=== PATIENT | female | born 1970 | race Caucasian/White ===

== ENCOUNTER 2017-06-18 08:15 | Emergency (ER) | payer MEDICAID ==
[~2017-06-18] VITALS: Ht 154.9 cm; Wt 87.1 kg
[~2017-06-18 08:15] MED LIST: ALBU8.5H8 IH; CYCL-1 PO; MECL-111 PO
[2017-06-18] MEDS ORDERED: AZIT250T PO (09:16)
[2017-06-18 09:53] VITALS: BP 99/86
== END 2017-06-18 09:54 | disposition home or self-care (01) ==
LOC: ER 08:15
DX: J20.9 Acute bronchitis, unspecified (principal); E11.42 Type 2 diabetes mellitus with diabetic polyneuropathy; G89.29 Other chronic pain; Z79.899 Other long term (current) drug therapy
CPT/HCPCS: 71046; 99284

== ENCOUNTER 2017-06-25 08:14 | Emergency (ER) | payer MEDICAID ==
[~2017-06-25] VITALS: Ht 154.9 cm; Wt 86.6 kg
[~2017-06-25 08:14] MED LIST changes: +AZIT250T PO
[2017-06-25] MEDS ORDERED: METH4TAB3 PO (08:25)
[2017-06-25] MEDS ORDERED: IBUP-1984 PO (08:25)
[2017-06-25 08:39] VITALS: BP 140/88
== END 2017-06-25 08:42 | disposition home or self-care (01) ==
LOC: ER 08:15
DX: R59.0 Localized enlarged lymph nodes (principal); E11.9 Type 2 diabetes mellitus without complications; G89.29 Other chronic pain; G62.9 Polyneuropathy, unspecified
CPT/HCPCS: 99283

== ENCOUNTER 2018-11-20 22:39 | Emergency (ER) | payer MEDICAID ==
[~2018-11-20] VITALS: Ht 154.9 cm; Wt 93.2 kg
[~2018-11-20 22:39] MED LIST changes: +METH4TAB3 PO
--- NOTE | 2018-11-20 23:45 | NUR ---
DISCUSSED PT'S C/O OF NAUSEA W/ DR BATES; NEW ORDER RECEIVED FOR ZOFRAN.
[2018-11-20] MEDS ORDERED: ondansetron 4mg rapidly disintigrating tab PO ONE (23:50)
--- NOTE | 2018-11-21 00:57 | NUR ---
PT RESTING IN BED DENIES ANY CONCERN ,NO DISTRESS NOTED VITALS STABLE.WILL CONT TO MONITOR.PT WAITING TO BE SEEN BY .
[2018-11-21 02:05] LABS: BASOPHILS % (AUTO) 0.4 % (0-1); EOSINOPHILS # (AUTO) 0.1 X10'3 (0-0.9); HEMATOCRIT 39.3 % (35.0-45.0); HEMOGLOBIN 13.5 g/dl (12.0-16.0); LYMPHOCYTES # (AUTO) 3.7 X10'3 (1.1-4.8); MEAN CORPUSCULAR HEMOGLOBIN 28.8 PG (27.0-31.0); MEAN CORPUSCULAR HGB CONC 34.3 g/dL (33.0-36.5); MEAN PLATELET VOLUME 9.2 FL (7.4-10.4); NEUTROPHILS # (AUTO) 5.9 X10'3 (1.8-7.7); NEUTROPHILS % (AUTO) 54.6 % (42-75); PLATELET COUNT 305 X10'3 (140-440); RED BLOOD COUNT 4.68 X10'6 (4.20-5.60); RED CELL DISTRIBUTION WIDTH 13.7 % (11.5-14.5); WHITE BLOOD COUNT 10.7 X10'3 (4.5-11.0)
[2018-11-21 02:09] LABS: ALANINE AMINOTRANSFERASE 18 U/L (12-78); ALBUMIN/GLOBULIN RATIO 0.8 (1.1-1.5); ALKALINE PHOSPHATASE 64 IU/L (46-116); ANION GAP 11 (8-16); ASPARTATE AMINO TRANSFERASE 8 U/L (10-37); BILIRUBIN,TOTAL 0.2 MG/DL (0.1-1.0); BLOOD UREA NITROGEN 16 MG/DL (7-18); BUN/CREATININE RATIO 21.3 (6.6-38.0); CALCIUM 8.9 MG/DL (8.5-10.1); CHLORIDE 106 MMOL/L (99-107); CREATININE 0.75 MG/DL (0.40-0.90); GLUCOSE 89 MG/DL (70-104); SODIUM 141 MMOL/L (135-145); TOTAL CARBON DIOXIDE 24.1 MMOL/L (24-32); TOTAL PROTEIN 6.7 G/DL (6.4-8.2); eGFR 83 ML/MIN
[2018-11-21 02:16] LABS: CLARITY,URINE CLEAR (Clear); COLOR,URINE YELLOW (Yellow); GLUCOSE, URINE 500 mg/dl (Neg); KETONES,URINE NEGATIVE (Neg); LEUKOCYTE ESTERASE ,URINE NEGATIVE (Neg); NITRITES, URINE NEGATIVE (Neg); OCCULT BLOOD,URINE NEGATIVE (Neg); PROTEIN,URINE NEGATIVE (Neg); UROBILINOGEN,URINE 0.2 E.U/dL (0.2-1.0)
[2018-11-21 02:17] LABS: UA COLLECTION TYPE VOIDED
--- NOTE | 2018-11-21 02:31 | NUR ---
Discussed critical lab value with delores pro; new order received for PO potassium 20mEq.
[2018-11-21] MEDS ORDERED: potassium Cl 20 mEq SR tablet PO ONE (02:35)
[2018-11-21] MEDS ORDERED: potassium chloride 10mEq CAPSULE.SA PO ONE (02:35)
[2018-11-21 03:02] VITALS: BP 126/72
[2018-11-21] MEDS ORDERED: ONDA4TAB6 PO (03:13)
== END 2018-11-21 03:26 | disposition home or self-care (01) ==
LOC: ER 22:39
DX: E11.65 Type 2 diabetes mellitus with hyperglycemia (principal); E87.6 Hypokalemia; K29.00 Acute gastritis without bleeding; E11.42 Type 2 diabetes mellitus with diabetic polyneuropathy; G89.29 Other chronic pain; Z79.899 Other long term (current) drug therapy
CPT/HCPCS: 36415; 80053; 81003; 82948; 84484; 85025; 99284; J2405; 99283

== ENCOUNTER 2018-12-15 09:51 | Emergency (ER) | payer MEDICAID ==
[~2018-12-15] VITALS: Ht 154.9 cm; Wt 95.5 kg
[~2018-12-15 09:51] MED LIST changes: +ONDA4TAB6 PO
[2018-12-15 10:14] VITALS: BP 124/75
[2018-12-15] MEDS ORDERED: TETanus/Pertussis (Acell)/Diphther VAC/PF (Tdap-Adult) 0.5ml syringe IM ONE (11:05)
[2018-12-15] MEDS ORDERED: DOXY100C43 PO (11:22)
== END 2018-12-15 11:30 | disposition home or self-care (01) ==
LOC: ER 09:51
DX: L01.02 Bockhart's impetigo (principal); M79.661 Pain in right lower leg; E11.42 Type 2 diabetes mellitus with diabetic polyneuropathy; G89.29 Other chronic pain; Z79.899 Other long term (current) drug therapy
CPT/HCPCS: 90471; 99283

== ENCOUNTER 2022-09-29 13:33 | Inpatient (IN) | payer MEDICAID ==
[~2022-09-29] VITALS: Ht 154.9 cm; Wt 97.7 kg
[~2022-09-29 13:33] MED LIST changes: +ALBU8.5H17 IH; -ALBU8.5H8 IH; -MECL-111 PO; +MECL-159 PO
[2022-09-29 15:33] LABS: BASOPHILS # (AUTO) 0.1 X10'3 (0-0.2); BASOPHILS % (AUTO) 0.7 % (0-1); EOSINOPHILS % (AUTO) 0 % (0-6); HEMATOCRIT 38.1 % (35.0-45.0); LYMPHOCYTES # (AUTO) 0.5 X10'3 (1.1-4.8); LYMPHOCYTES % (AUTO) 2.6 % (21-51); MEAN CORPUSCULAR HEMOGLOBIN 25.1 PG (27.0-31.0); MEAN CORPUSCULAR HGB CONC 31.5 g/dL (33.0-36.5); MEAN CORPUSCULAR VOLUME 79.6 FL (78-98); MEAN PLATELET VOLUME 8.7 FL (7.4-10.4); MONOCYTES # (AUTO) 0.9 X10'3 (0-0.9); MONOCYTES % (AUTO) 4.2 % (2-12); NEUTROPHILS # (AUTO) 18.8 X10'3 (1.8-7.7); NEUTROPHILS % (AUTO) 92.5 % (42-75); PLATELET COUNT 463 X10'3 (140-440); RED BLOOD COUNT 4.79 X10'6 (4.20-5.60); RED CELL DISTRIBUTION WIDTH 17.2 % (11.5-14.5); WHITE BLOOD COUNT 20.4 X10'3 (4.5-11.0)
[2022-09-29] MEDS ORDERED: methylPREDNISolone sod succ 125mg/2ml vial IV ONE (15:35)
[2022-09-29] MEDS ORDERED: normal saline 1000ML IV soln IVB ONE (15:35)
[2022-09-29] MEDS ORDERED: albuterol 2.5 MG/3 ML nebule NEB ONE (15:35)
[2022-09-29] MEDS ORDERED: albuterol 2.5 MG/3 ML nebule CONTNEB PRN ×2 (15:35→19:15)
[2022-09-29 15:49] LABS: ALANINE AMINOTRANSFERASE 14 U/L (12-78); ALBUMIN 3.1 G/DL (3.4-5.0); ALBUMIN/GLOBULIN RATIO 0.7 (1.1-1.5); ALKALINE PHOSPHATASE 38 IU/L (46-116); ANION GAP 8 (8-16); ASPARTATE AMINO TRANSFERASE 18 U/L (10-37); BILIRUBIN,TOTAL 0.8 MG/DL (0.1-1.0); BLOOD UREA NITROGEN 18 MG/DL (7-18); BUN/CREATININE RATIO 18.2 (10.0-20.0); CALCIUM 8.7 MG/DL (8.5-10.1); CHLORIDE 101 MMOL/L (99-107); CREATININE 0.99 MG/DL (0.40-0.90); GLUCOSE 150 MG/DL (70-104); POTASSIUM 3.8 MMOL/L (3.5-5.1); SODIUM 136 MMOL/L (135-145); TOTAL CARBON DIOXIDE 26.6 MMOL/L (24-32); TOTAL PROTEIN 7.4 G/DL (6.4-8.2); eGFR 59 ML/MIN
[2022-09-29 16:27] LABS: D-DIMER 0.66 MG/L FEU (0-0.50)
[2022-09-29] MEDS ORDERED: normal saline 1000ML IV soln IV ONE (18:10)
[2022-09-29] MEDS ORDERED: vancomycin/NS 1 GM ADD-VANTAGE 250 ML IV ONE (18:10)
[2022-09-29] MEDS ORDERED: piperacillin/tazo 3.375gm/50ml 50 ML IV ONE (18:10)
[2022-09-29] MEDS ORDERED: iohexol 350MG/ML 100ml bottle IV ONE (18:16)
[2022-09-29] MEDS ORDERED: acetaminophen 650mg rectal suppository RC PRN (19:55)
[2022-09-29] MEDS ORDERED: potassium Cl 20 mEq SR tablet PO PRN ×2 (19:55)
[2022-09-29] MEDS ORDERED: heparin 10,000 units/1 ML INJ IV ONE (19:55)
[2022-09-29] MEDS ORDERED: mag hydrox/Alum hydrox/simeth 30ml oral suspension PO PRN (19:55)
[2022-09-29] MEDS ORDERED: acetaminophen 325mg tablet PO PRN ×2 (19:55)
[2022-09-29] MEDS ORDERED: diphenhydrAMINE 25mg capsule PO PRN (19:55)
[2022-09-29] MEDS ORDERED: magnesium hydroxide 30ml (MOM) UD suspension PO PRN (19:55)
[2022-09-29] MEDS ORDERED: bisacodyl 10mg suppository rectal RC PRN (19:55)
[2022-09-29] MEDS ORDERED: PERFLUTREN PROTEIN-A MICROSPHR (Optison) 0.22 MG/ML 3ML VIAL IV ONE (19:55)
[2022-09-29] MEDS ORDERED: magnesium 2GM in 50ml NS 50 ML IV PRN (19:55)
[2022-09-29] MEDS ORDERED: magnesium 4gm in 100ml NS 100 ML IV PRN (19:55)
[2022-09-29] MEDS ORDERED: magnesium Cl slow-release 64mg tablet PO PRN (19:55)
[2022-09-29] MEDS ORDERED: ondansetron/PF 4mg/2ml inj IV PRN (19:55)
[2022-09-29] MEDS ORDERED: potassium Cl 40MEQ/1/2NS 520ml 520 ML IV PRN (19:55)
[2022-09-29] MEDS ORDERED: morphine 2 MG/ML inj. syringe IV PRN ×2 (19:55)
[2022-09-29] MEDS ORDERED: HYDROcodone/acetaminophen 10/325mg tab PO PRN (19:55)
[2022-09-29] MEDS: docusate sod 100mg capsule PO SCH (20:00)
[2022-09-29] MEDS: K and/or MAG REPLACEMENT MC SCH (20:00)
[2022-09-29] MEDS ORDERED: ipratropium/albuterol 3ml nebule NEB PRN (20:10)
[2022-09-29] MEDS: azithromycin/NS 500mg/250ml 250 ML IV SCH (20:10)
[2022-09-29 20:27] LABS: BASOPHILS % (AUTO) 0.1 % (0-1); EOSINOPHILS % (AUTO) 0 % (0-6); HEMOGLOBIN 11.5 g/dl (12.0-16.0); LYMPHOCYTES # (AUTO) 0.3 X10'3 (1.1-4.8); LYMPHOCYTES % (AUTO) 1.5 % (21-51); MEAN CORPUSCULAR HEMOGLOBIN 25.5 PG (27.0-31.0); MEAN CORPUSCULAR HGB CONC 31.8 g/dL (33.0-36.5); MEAN CORPUSCULAR VOLUME 80.2 FL (78-98); MEAN PLATELET VOLUME 8.7 FL (7.4-10.4); MONOCYTES # (AUTO) 0.4 X10'3 (0-0.9); MONOCYTES % (AUTO) 1.9 % (2-12); NEUTROPHILS # (AUTO) 21.3 X10'3 (1.8-7.7); NEUTROPHILS % (AUTO) 96.5 % (42-75); PLATELET COUNT 432 X10'3 (140-440); RED CELL DISTRIBUTION WIDTH 16.4 % (11.5-14.5); WHITE BLOOD COUNT 22.1 X10'3 (4.5-11.0)
[2022-09-29 20:33] LABS: APTT 30 SECONDS (22-32)
[2022-09-29 20:39] LABS: ETHANOL < 0.010 GM/DL (0.0-0.010)
[2022-09-29 20:42] LABS: HEMOGLOBIN A1C 8.2 % (4.5-6.2)
[2022-09-29] MEDS: heparin 25,000 UNIT/250ml bag 250 ML IV PRN (21:22)
[2022-09-29 21:53] LABS: URINE HCG NEGATIVE (NEG)
[2022-09-29 21:56] LABS: CLARITY,URINE CLEAR (Clear); COLOR,URINE YELLOW (Yellow); GLUCOSE, URINE >=1000 mg/dl (Neg); KETONES,URINE NEGATIVE (Neg); LEUKOCYTE ESTERASE ,URINE NEGATIVE (Neg); NITRITES, URINE NEGATIVE (Neg); OCCULT BLOOD,URINE LARGE (Neg); PH,URINE 5.5 (4.8-8.0); PROTEIN,URINE TRACE mg/dl (Neg); UROBILINOGEN,URINE 0.2 E.U/dL (0.2-1.0)
[2022-09-29 22:01] LABS: UA COLLECTION TYPE CLN CATCH MIDSTREAM
[2022-09-29 22:04] LABS: BACTERIA,URINE FEW /HPF (Neg); MUCUS STRANDS NONE SEEN /LPF (Neg); RBC,URINE 0-2 /HPF (0-2); SQUAMOUS EPITHELIAL CELL,UR FEW /LPF (FEW); WBC,URINE 0-4 /HPF (0-4)
[2022-09-29 22:08] LABS: URINE AMPHETAMINE SCREEN NEGATIVE (Neg); URINE BARBITUATE SCREEN NEGATIVE (Neg); URINE BENZODIAZEPINES SCREEN NEGATIVE (Neg); URINE CANNABINOID SCREEN NEGATIVE (Neg); URINE COCAINE SCREEN NEGATIVE (Neg); URINE METHADONE SCREEN NEGATIVE (Neg); URINE OPIATE SCREEN NEGATIVE (Neg); URINE PHENCYCLIDINE SCREEN NEGATIVE (Neg)
--- NOTE | 2022-09-29 22:16 | NUR ---
optison not administered in ED
[2022-09-29] MEDS ORDERED: glucagon, human recombinant 1mg kit SUBCUT PRN (22:20)
[2022-09-29] MEDS ORDERED: dextrose 50%-water 50ml dispensing syringe IV PRN ×2 (22:20)
[2022-09-29] MEDS ORDERED: DEXTROSE 15 GM of carb/4 tabs (each vial/BOTTLE has 4 tablets) PO PRN ×2 (22:20)
[2022-09-29] MEDS ORDERED: MESSAGE TO PHARMACY PO ONE (22:20)
--- NOTE | 2022-09-29 22:28 | NUR ---
PAGER ID: [phone] MESSAGE: Marnie Last admitted patient in ER room 1. Pt is DM Type 2. I ordered the protocol for hyperglycemia. Pt BG 405, orders? Varsha YAÑEZ
--- NOTE | 2022-09-29 22:30 | NUR ---
Orders from Dr. Phipps to follow night protocol insulin administration
[2022-09-29] MEDS: ipratropium/albuterol 3ml nebule NEB SCH (22:47)
--- NOTE | 2022-09-29 23:56 | NUR ---
Patient arrived via [facility] and Varsha YAÑEZ. Was able to transfer herself from the gurney to the bed. On 3LNC. In no apparent distress. Will admit and assess.
[2022-09-30] VITALS (7 sets, daily range): BP systolic 104–125; BP diastolic 66–80
[2022-09-30] MEDS: insulin Lispro (HumaLOG) vial - multi-dose SQ SCH ×5 (00:17→22:17)
[2022-09-30] MEDS: insulin glargine (Lantus) pen - multi-dose SQ SCH ×2 (00:21→22:19)
[2022-09-30] MEDS ORDERED: LISI10TA27 PO (00:38)
[2022-09-30] MEDS ORDERED: SEMA1PEN3 SQ (00:38)
[2022-09-30] MEDS ORDERED: ATOR20TA66 PO (00:38)
[2022-09-30] MEDS ORDERED: SERT-433 PO (00:38)
[2022-09-30] MEDS ORDERED: SERT-434 PO (00:38)
[2022-09-30] MEDS ORDERED: INSU100I31 SQ (00:38)
[2022-09-30] MEDS ORDERED: BENZ200C53 PO (00:38)
[2022-09-30] MEDS ORDERED: GABAPENTIN PO (00:38)
[2022-09-30] MEDS ORDERED: FENO145T25 PO (00:38)
[2022-09-30] MEDS: piperacillin/tazo 3.375gm/50ml 50 ML IV SCH ×4 (00:46→23:32)
[2022-09-30] MEDS: normal saline 1000ml 1,000 ML IV SCH ×3 (00:46→16:35)
[2022-09-30] MEDS: methylPREDNISolone sod succ 125mg/2ml vial IV SCH ×4 (01:19→20:58)
[2022-09-30] MEDS: ipratropium/albuterol 3ml nebule NEB SCH ×6 (03:07→23:21)
[2022-09-30 03:30] LABS: APTT 35 SECONDS (22-32)
[2022-09-30 03:34] LABS: ALANINE AMINOTRANSFERASE 15 U/L (12-78); ALBUMIN 2.8 G/DL (3.4-5.0); ALBUMIN/GLOBULIN RATIO 0.7 (1.1-1.5); ALKALINE PHOSPHATASE 34 IU/L (46-116); ANION GAP 11 (8-16); ASPARTATE AMINO TRANSFERASE 24 U/L (10-37); BILIRUBIN,TOTAL 0.7 MG/DL (0.1-1.0); BLOOD UREA NITROGEN 20 MG/DL (7-18); BUN/CREATININE RATIO 17.7 (10.0-20.0); CALCIUM 8.5 MG/DL (8.5-10.1); CHLORIDE 102 MMOL/L (99-107); CHOLESTEROL 92 MG/DL (0-200); CREATININE 1.13 MG/DL (0.40-0.90); HDL CHOLESTEROL 46 MG/DL (35-60); LDL CHOLESTEROL 38 MG/DL (50-100); MAGNESIUM 1.5 MG/DL (1.5-2.4); PHOSPHORUS 1.8 MG/DL (2.3-4.5); POTASSIUM 3.6 MMOL/L (3.5-5.1); SODIUM 134 MMOL/L (135-145); TOTAL CARBON DIOXIDE 21.3 MMOL/L (24-32); TOTAL PROTEIN 6.9 G/DL (6.4-8.2); TRIGLYCERIDES 65 MG/DL (20-135); eGFR 51 ML/MIN
[2022-09-30] MEDS: heparin 10,000 units/1 ML INJ IV PRN ×3 (03:38→19:34)
[2022-09-30 03:42] LABS: GLUCOSE 474 MG/DL (70-104)
[2022-09-30] MEDS ORDERED: INSU100I8 SQ (03:56)
[2022-09-30] MEDS ORDERED: METF-436 PO (03:59)
[2022-09-30 05:57] LABS: BASOPHILS % (AUTO) 0.1 % (0-1); EOSINOPHILS % (AUTO) 0 % (0-6); HEMATOCRIT 34.6 % (35.0-45.0); HEMOGLOBIN 10.7 g/dl (12.0-16.0); LYMPHOCYTES # (AUTO) 0.5 X10'3 (1.1-4.8); LYMPHOCYTES % (AUTO) 2.5 % (21-51); MEAN CORPUSCULAR HGB CONC 31.1 g/dL (33.0-36.5); MEAN CORPUSCULAR VOLUME 80.3 FL (78-98); MEAN PLATELET VOLUME 9.6 FL (7.4-10.4); MONOCYTES # (AUTO) 0.3 X10'3 (0-0.9); MONOCYTES % (AUTO) 1.7 % (2-12); NEUTROPHILS % (AUTO) 95.7 % (42-75); PLATELET COUNT 389 X10'3 (140-440); RED CELL DISTRIBUTION WIDTH 16.9 % (11.5-14.5); WHITE BLOOD COUNT 19.9 X10'3 (4.5-11.0)
--- NOTE | 2022-09-30 06:19 | NUR ---
Reported off to Annmarie YAÑEZ. Patient is awake and alert on 2LNC. Watching television in no apparent distress. Call light and items of frequent use within reach.
[2022-09-30] MEDS: azithromycin/NS 500mg/250ml 250 ML IV SCH (10:22)
[2022-09-30] MEDS: docusate sod 100mg capsule PO SCH ×2 (10:24→20:00)
[2022-09-30] MEDS ORDERED: GABA300C PO (11:27)
--- NOTE | 2022-09-30 11:27 | NUR ---
pt. refused 1100 SVN. Stated that she feels fine right now. no SOB observed
[2022-09-30] MEDS: K and/or MAG REPLACEMENT MC SCH ×2 (12:22→19:45)
--- NOTE | 2022-09-30 15:37 | NUR ---
DM/Malnutrition Consults: Pt admit DX COPD exacerbation, sepsis secondary to R lower lobe PNA, PNA possibly secondary to aspiration from vomiting, leukocytosis, dehydration, and DM neuropathy per EMR. Pt reports 2-13 pounds wt loss w/ decreased intake [employer] EXEC[employer]IVE per RN Malnutrition Screen. PO pending initial heart healthy diet w/ normal strength, no edema/wounds, and current standing scaled wt appropriate w/ no prior recent wt hx in EMR. At this time pt lacks minimum two malnutrition criteria; will monitor for further malnutrition criteria this admit. Pt hx DM A1C 8.2% no home DM meds listed in EMR; Glu initially 405mg/dl on admit now up to 457mg/dl started on glycemic protocol though continues on solumedrol per EMR. Pt would benefit from DM ed this admit prior to discharge. LBM 6/3 receiving routine colace. Will monitor for initial PO trends and nutrition intervention needs this admit. Rec: 1. continue heart healthy diet; monitor need for carb restriction pending initial PO trends. Consider [employer] BSS if concerns for swallow safety 2. monitor initial PO trends for ONS needs 3. routine bowel care 4. weekly wt 5. DM ed prior to discharge; A1C 8.2% Addendum: 09/30/22 at [address] Amended: Links added.
[2022-09-30] MEDS: heparin 25,000 UNIT/250ml bag 250 ML IV PRN (17:20)
--- NOTE | 2022-09-30 18:38 | NUR ---
Problems reprioritized. Patient report given, questions answered & plan of care reviewed with PARI WEST.
--- NOTE | 2022-09-30 18:40 | NUR ---
Problems reprioritized. Patient report given, questions answered & plan of care reviewed with Ronda YAÑEZ.
[2022-10-01 01:43] LABS: BASOPHILS % (AUTO) 0 % (0-1); EOSINOPHILS % (AUTO) 0.1 % (0-6); HEMATOCRIT 32.9 % (35.0-45.0); HEMOGLOBIN 10.3 g/dl (12.0-16.0); LYMPHOCYTES # (AUTO) 0.3 X10'3 (1.1-4.8); LYMPHOCYTES % (AUTO) 1.4 % (21-51); MEAN CORPUSCULAR HEMOGLOBIN 25.2 PG (27.0-31.0); MEAN CORPUSCULAR HGB CONC 31.4 g/dL (33.0-36.5); MEAN CORPUSCULAR VOLUME 80.3 FL (78-98); MONOCYTES # (AUTO) 0.6 X10'3 (0-0.9); MONOCYTES % (AUTO) 2.8 % (2-12); NEUTROPHILS # (AUTO) 20.5 X10'3 (1.8-7.7); NEUTROPHILS % (AUTO) 95.7 % (42-75); PLATELET COUNT 349 X10'3 (140-440); RED CELL DISTRIBUTION WIDTH 17.1 % (11.5-14.5); WHITE BLOOD COUNT 21.4 X10'3 (4.5-11.0)
[2022-10-01] MEDS: normal saline 1000ml 1,000 ML IV SCH ×3 (02:44→21:43)
[2022-10-01] MEDS: methylPREDNISolone sod succ 125mg/2ml vial IV SCH ×4 (02:54→19:35)
[2022-10-01 03:07] LABS: ALANINE AMINOTRANSFERASE 13 U/L (12-78); ALBUMIN 2.8 G/DL (3.4-5.0); ALBUMIN/GLOBULIN RATIO 0.6 (1.1-1.5); ALKALINE PHOSPHATASE 40 IU/L (46-116); ANION GAP 10 (8-16); ASPARTATE AMINO TRANSFERASE 18 U/L (10-37); BILIRUBIN,TOTAL 0.5 MG/DL (0.1-1.0); BLOOD UREA NITROGEN 28 MG/DL (7-18); BUN/CREATININE RATIO 25.9 (10.0-20.0); CALCIUM 8.4 MG/DL (8.5-10.1); CHLORIDE 102 MMOL/L (99-107); CREATININE 1.08 MG/DL (0.40-0.90); GLUCOSE 252 MG/DL (70-104); MAGNESIUM 1.9 MG/DL (1.5-2.4); PHOSPHORUS 2.1 MG/DL (2.3-4.5); POTASSIUM 3.7 MMOL/L (3.5-5.1); SODIUM 137 MMOL/L (135-145); TOTAL CARBON DIOXIDE 24.8 MMOL/L (24-32); TOTAL PROTEIN 7.2 G/DL (6.4-8.2); eGFR 53 ML/MIN
[2022-10-01] MEDS: ipratropium/albuterol 3ml nebule NEB SCH ×6 (03:18→23:39)
--- NOTE | 2022-10-01 03:18 | NUR ---
Heparin drip has since been dc'd earlier. So not bolusing per protocol for low 29ptt.
--- NOTE | 2022-10-01 06:50 | NUR ---
Problems reprioritized. Patient report given, questions answered & plan of care reviewed with Ronda YAÑEZ.
--- NOTE | 2022-10-01 06:53 | NUR ---
Patient in room PCU 6041X. I have received report from PARI WEST and had the opportunity to ask questions and assume patient care.
[2022-10-01 07:00] VITALS: BP 130/78
[2022-10-01] MEDS: gabapentin 300mg capsule PO SCH ×2 (07:40→19:36)
[2022-10-01] MEDS: benzonatate 100mg capsule PO SCH ×3 (07:41→21:36)
[2022-10-01] MEDS: lisinopril 10 MG tablet PO SCH (07:41)
[2022-10-01] MEDS: atorvastatin 20mg tablet PO SCH (07:41)
[2022-10-01] MEDS: sertraline 50mg tablet PO SCH (07:42)
[2022-10-01] MEDS: fenofibrate 145mg tablet PO SCH (07:42)
[2022-10-01] MEDS: heparin, porcine 5000 units/ml vial SQ SCH ×3 (07:43→16:00)
[2022-10-01] MEDS: docusate sod 100mg capsule PO SCH ×2 (07:44→19:36)
[2022-10-01] MEDS: azithromycin/NS 500mg/250ml 250 ML IV SCH (07:44)
[2022-10-01] MEDS ORDERED: non-formulary drug (Sertraline HCl 1 TAB) PO SCH (08:00)
[2022-10-01] MEDS: insulin Lispro (HumaLOG) vial - multi-dose SQ SCH ×4 (09:19→21:32)
[2022-10-01] MEDS: piperacillin/tazo 3.375gm/50ml 50 ML IV SCH ×2 (09:20→15:59)
[2022-10-01] MEDS: K and/or MAG REPLACEMENT MC SCH ×2 (09:26→19:36)
[2022-10-01 12:00] VITALS: BP 130/78
[2022-10-01 16:00] VITALS: BP 144/87
[2022-10-01 18:00] VITALS: BP 139/89
--- NOTE | 2022-10-01 18:42 | NUR ---
Problems reprioritized. Patient report given, questions answered & plan of care reviewed with PARI MUÑOZ.
--- NOTE | 2022-10-01 21:19 | NUR ---
Problems reprioritized. Patient report given, questions answered & plan of care reviewed with JUSTIN AND PARI DUNN.
[2022-10-01] MEDS: HYDROcodone/acetaminophen 5mg/325mg tablet PO PRN (21:28)
[2022-10-01] MEDS: insulin glargine (Lantus) pen - multi-dose SQ SCH (21:31)
[2022-10-01 22:00] VITALS: BP 130/70
[2022-10-02] MEDS: piperacillin/tazo 3.375gm/50ml 50 ML IV SCH ×3 (00:01→16:52)
[2022-10-02] MEDS: heparin, porcine 5000 units/ml vial SQ SCH ×3 (00:01→16:53)
[2022-10-02 02:00] VITALS: BP 119/82
[2022-10-02] MEDS: methylPREDNISolone sod succ 125mg/2ml vial IV SCH ×4 (02:27→20:13)
[2022-10-02] MEDS: ipratropium/albuterol 3ml nebule NEB SCH ×6 (03:13→23:30)
--- NOTE | 2022-10-02 06:17 | NUR ---
Problems reprioritized. Patient report given, questions answered & plan of care reviewed with PARI Bond.
--- NOTE | 2022-10-02 06:34 | NUR ---
Patient in room PCU 4653U. I have received report from PARI DUNN and had the opportunity to ask questions and assume patient care.
[2022-10-02 07:00] VITALS: BP 124/82
[2022-10-02 07:30] LABS: BASOPHILS % (AUTO) 0.1 % (0-1); EOSINOPHILS % (AUTO) 0 % (0-6); HEMATOCRIT 34.5 % (35.0-45.0); HEMOGLOBIN 10.8 g/dl (12.0-16.0); LYMPHOCYTES # (AUTO) 0.4 X10'3 (1.1-4.8); MEAN CORPUSCULAR HEMOGLOBIN 25.2 PG (27.0-31.0); MEAN CORPUSCULAR HGB CONC 31.3 g/dL (33.0-36.5); MEAN CORPUSCULAR VOLUME 80.4 FL (78-98); MEAN PLATELET VOLUME 9.1 FL (7.4-10.4); MONOCYTES # (AUTO) 0.3 X10'3 (0-0.9); NEUTROPHILS # (AUTO) 9.2 X10'3 (1.8-7.7); NEUTROPHILS % (AUTO) 92.9 % (42-75); PLATELET COUNT 393 X10'3 (140-440); RED BLOOD COUNT 4.29 X10'6 (4.20-5.60); RED CELL DISTRIBUTION WIDTH 16.9 % (11.5-14.5); WHITE BLOOD COUNT 9.9 X10'3 (4.5-11.0)
[2022-10-02 07:43] LABS: ALANINE AMINOTRANSFERASE 19 U/L (12-78); ALBUMIN 2.7 G/DL (3.4-5.0); ALBUMIN/GLOBULIN RATIO 0.7 (1.1-1.5); ALKALINE PHOSPHATASE 37 IU/L (46-116); ANION GAP 7 (8-16); ASPARTATE AMINO TRANSFERASE 20 U/L (10-37); BILIRUBIN,TOTAL 0.6 MG/DL (0.1-1.0); BLOOD UREA NITROGEN 27 MG/DL (7-18); BUN/CREATININE RATIO 29.7 (10.0-20.0); CALCIUM 8.4 MG/DL (8.5-10.1); CHLORIDE 104 MMOL/L (99-107); CREATININE 0.91 MG/DL (0.40-0.90); GLUCOSE 238 MG/DL (70-104); PHOSPHORUS 2.5 MG/DL (2.3-4.5); POTASSIUM 4.5 MMOL/L (3.5-5.1); SODIUM 136 MMOL/L (135-145); TOTAL CARBON DIOXIDE 24.6 MMOL/L (24-32); TOTAL PROTEIN 6.6 G/DL (6.4-8.2); eGFR 65 ML/MIN
[2022-10-02] MEDS: K and/or MAG REPLACEMENT MC SCH ×2 (08:00→20:00)
[2022-10-02] MEDS: insulin Lispro (HumaLOG) vial - multi-dose SQ SCH ×3 (08:59→20:19)
[2022-10-02] MEDS: sertraline 50mg tablet PO SCH (09:02)
[2022-10-02] MEDS: lisinopril 10 MG tablet PO SCH (09:04)
[2022-10-02] MEDS: fenofibrate 145mg tablet PO SCH (09:05)
[2022-10-02] MEDS: benzonatate 100mg capsule PO SCH ×3 (09:05→20:10)
[2022-10-02] MEDS: atorvastatin 20mg tablet PO SCH (09:06)
[2022-10-02] MEDS: gabapentin 300mg capsule PO SCH ×2 (09:06→20:10)
[2022-10-02] MEDS: docusate sod 100mg capsule PO SCH ×2 (09:07→20:10)
[2022-10-02] MEDS: azithromycin/NS 500mg/250ml 250 ML IV SCH (09:07)
[2022-10-02] MEDS: normal saline 1000ml 1,000 ML IV SCH ×3 (09:09→22:30)
[2022-10-02 11:00] VITALS: BP 132/87
--- NOTE | 2022-10-02 14:57 | NUR ---
Reassessment: Pt seen for DM education. Pt reports adequate appetite and intake is average of 94% x 7 meals thus pt is meeting estimated energy and protein needs. Pt reports attending several DM education classes at [facility] back in 2020. Pt is familiar with my plate and counting carbs. However pt is currently living in a hotel and is not able to prepare many meals which results eating fried and convenient foods. Pt states no food insecurity and did not need resources. Also states taking DM medication as directed by her dr and sees her provider every 3 months. Pt reports testing her BG 3 times a day and usually runs in the 200s. Pt was not interested on a detailed discussion regarding DM education but was agreeable to reading Ed materials on her own. Pt also denied problems with constipation or diarrhea. Pt provided with RD contact information and encouraged to reach out if needed. Will monitor for further nutrition interventions need. Rec: 1. continue heart healthy/carbohydrate consistent diet 2. Continue monitoring PO trends and need for ONS/additional protein 3. routine bowel care 4. weekly wt Addendum: 10/02/22 at [address] Amended: Links added. Addendum: 10/02/22 at [address] I have reviewed and agree with note. KRYSTLE Guzman
[2022-10-02 15:00] VITALS: BP 135/80
[2022-10-02 18:00] VITALS: BP 136/85
--- NOTE | 2022-10-02 18:25 | NUR ---
Patient in room PCU 3025U. I have received report from Ronda YAÑEZ, and had the opportunity to ask questions and assume patient care.
--- NOTE | 2022-10-02 18:29 | NUR ---
Problems reprioritized. Patient report given, questions answered & plan of care reviewed with PARI ROSALES.
[2022-10-02 22:00] VITALS: BP 148/93
[2022-10-02] MEDS: insulin glargine (Lantus) pen - multi-dose SQ SCH (22:35)
[2022-10-03] MEDS: piperacillin/tazo 3.375gm/50ml 50 ML IV SCH ×3 (00:16→16:44)
[2022-10-03] MEDS: heparin, porcine 5000 units/ml vial SQ SCH ×3 (00:17→16:44)
[2022-10-03] MEDS: methylPREDNISolone sod succ 125mg/2ml vial IV SCH ×4 (02:32→19:28)
[2022-10-03 02:45] VITALS: BP 146/92
[2022-10-03] MEDS: ipratropium/albuterol 3ml nebule NEB SCH ×6 (03:27→23:37)
[2022-10-03 06:00] VITALS: BP 146/96
--- NOTE | 2022-10-03 06:08 | NUR ---
Problems reprioritized. Patient report given, questions answered & plan of care reviewed with Raegan YAÑEZ. Pt stable at shift change.
[2022-10-03 07:21] LABS: BASOPHILS % (AUTO) 0.1 % (0-1); EOSINOPHILS % (AUTO) 0 % (0-6); HEMATOCRIT 34.7 % (35.0-45.0); LYMPHOCYTES # (AUTO) 0.4 X10'3 (1.1-4.8); LYMPHOCYTES % (AUTO) 7.2 % (21-51); MEAN CORPUSCULAR HEMOGLOBIN 25.2 PG (27.0-31.0); MEAN CORPUSCULAR HGB CONC 31.7 g/dL (33.0-36.5); MEAN CORPUSCULAR VOLUME 79.6 FL (78-98); MEAN PLATELET VOLUME 9.1 FL (7.4-10.4); MONOCYTES # (AUTO) 0.2 X10'3 (0-0.9); MONOCYTES % (AUTO) 3.7 % (2-12); NEUTROPHILS # (AUTO) 4.9 X10'3 (1.8-7.7); PLATELET COUNT 369 X10'3 (140-440); RED BLOOD COUNT 4.36 X10'6 (4.20-5.60); RED CELL DISTRIBUTION WIDTH 16.8 % (11.5-14.5); WHITE BLOOD COUNT 5.5 X10'3 (4.5-11.0)
[2022-10-03 07:44] LABS: ALANINE AMINOTRANSFERASE 16 U/L (12-78); ALBUMIN 2.8 G/DL (3.4-5.0); ALBUMIN/GLOBULIN RATIO 0.7 (1.1-1.5); ALKALINE PHOSPHATASE 38 IU/L (46-116); ANION GAP 8 (8-16); ASPARTATE AMINO TRANSFERASE 11 U/L (10-37); BILIRUBIN,TOTAL 0.6 MG/DL (0.1-1.0); BLOOD UREA NITROGEN 23 MG/DL (7-18); BUN/CREATININE RATIO 27.4 (10.0-20.0); CALCIUM 8.4 MG/DL (8.5-10.1); CHLORIDE 103 MMOL/L (99-107); CREATININE 0.84 MG/DL (0.40-0.90); GLUCOSE 261 MG/DL (70-104); MAGNESIUM 1.9 MG/DL (1.5-2.4); PHOSPHORUS 2.8 MG/DL (2.3-4.5); POTASSIUM 4.3 MMOL/L (3.5-5.1); SODIUM 136 MMOL/L (135-145); TOTAL CARBON DIOXIDE 24.8 MMOL/L (24-32); TOTAL PROTEIN 6.6 G/DL (6.4-8.2); eGFR 71 ML/MIN
[2022-10-03] MEDS: K and/or MAG REPLACEMENT MC SCH ×2 (08:00→20:00)
[2022-10-03] MEDS: fenofibrate 145mg tablet PO SCH (08:24)
[2022-10-03] MEDS: lisinopril 10 MG tablet PO SCH (08:24)
[2022-10-03] MEDS: azithromycin 250mg tablet PO SCH (08:24)
[2022-10-03] MEDS: gabapentin 300mg capsule PO SCH ×2 (08:24→19:27)
[2022-10-03] MEDS: atorvastatin 20mg tablet PO SCH (08:25)
[2022-10-03] MEDS: benzonatate 100mg capsule PO SCH ×3 (08:25→22:33)
[2022-10-03] MEDS: docusate sod 100mg capsule PO SCH ×2 (08:25→19:27)
[2022-10-03] MEDS: sertraline 50mg tablet PO SCH (08:36)
[2022-10-03] MEDS: insulin Lispro (HumaLOG) vial - multi-dose SQ SCH ×3 (09:32→19:26)
[2022-10-03 11:00] VITALS: BP 154/104
[2022-10-03] MEDS: furosemide 40mg/4ml inj IV SCH ×2 (13:14→19:27)
[2022-10-03 15:00] VITALS: BP 135/77
--- NOTE | 2022-10-03 18:25 | NUR ---
Patient in room PCU 3025. I have received report from Raegan YAÑEZ, and had the opportunity to ask questions and assume patient care.
[2022-10-03 19:00] VITALS: BP 135/80
--- NOTE | 2022-10-03 22:27 | NUR ---
donor center technician imformed nurse pt's Hear rate jumped to 150s, when checked Pt's HR was in 90s again.
[2022-10-03] MEDS: insulin glargine (Lantus) pen - multi-dose SQ SCH (22:33)
[2022-10-03 23:00] VITALS: BP 141/80
[2022-10-04] MEDS: piperacillin/tazo 3.375gm/50ml 50 ML IV SCH ×2 (00:30→07:23)
[2022-10-04] MEDS: heparin, porcine 5000 units/ml vial SQ SCH ×2 (00:31→07:23)
[2022-10-04] MEDS: methylPREDNISolone sod succ 125mg/2ml vial IV SCH ×3 (02:00→13:54)
[2022-10-04 03:31] VITALS: BP 145/89
[2022-10-04] MEDS: ipratropium/albuterol 3ml nebule NEB SCH ×4 (03:36→15:07)
--- NOTE | 2022-10-04 06:27 | NUR ---
Problems reprioritized. Patient report given, questions answered & plan of care reviewed with Raegan YAÑEZ. Pt stable at shift change.
[2022-10-04] MEDS: furosemide 40mg/4ml inj IV SCH (07:23)
[2022-10-04] MEDS: sertraline 50mg tablet PO SCH (07:24)
[2022-10-04] MEDS: benzonatate 100mg capsule PO SCH ×2 (07:24→13:54)
[2022-10-04] MEDS: docusate sod 100mg capsule PO SCH (07:24)
[2022-10-04] MEDS: azithromycin 250mg tablet PO SCH (07:24)
[2022-10-04] MEDS: gabapentin 300mg capsule PO SCH (07:24)
[2022-10-04] MEDS: fenofibrate 145mg tablet PO SCH (07:25)
[2022-10-04] MEDS: atorvastatin 20mg tablet PO SCH (07:25)
[2022-10-04] MEDS: lisinopril 10 MG tablet PO SCH (07:25)
[2022-10-04] MEDS: K and/or MAG REPLACEMENT MC SCH (08:00)
[2022-10-04 08:08] LABS: BASOPHILS % (AUTO) 0.1 % (0-1); EOSINOPHILS % (AUTO) 0 % (0-6); HEMATOCRIT 36.3 % (35.0-45.0); HEMOGLOBIN 11.5 g/dl (12.0-16.0); LYMPHOCYTES # (AUTO) 0.5 X10'3 (1.1-4.8); LYMPHOCYTES % (AUTO) 6.2 % (21-51); MEAN CORPUSCULAR HGB CONC 31.7 g/dL (33.0-36.5); MEAN CORPUSCULAR VOLUME 78.8 FL (78-98); MEAN PLATELET VOLUME 9.1 FL (7.4-10.4); MONOCYTES # (AUTO) 0.5 X10'3 (0-0.9); MONOCYTES % (AUTO) 5.6 % (2-12); NEUTROPHILS # (AUTO) 7.2 X10'3 (1.8-7.7); NEUTROPHILS % (AUTO) 88.1 % (42-75); PLATELET COUNT 376 X10'3 (140-440); RED BLOOD COUNT 4.61 X10'6 (4.20-5.60); RED CELL DISTRIBUTION WIDTH 16.8 % (11.5-14.5); WHITE BLOOD COUNT 8.1 X10'3 (4.5-11.0)
[2022-10-04 08:21] LABS: ALANINE AMINOTRANSFERASE 19 U/L (12-78); ALBUMIN 2.8 G/DL (3.4-5.0); ALBUMIN/GLOBULIN RATIO 0.8 (1.1-1.5); ALKALINE PHOSPHATASE 36 IU/L (46-116); ANION GAP 4 (8-16); ASPARTATE AMINO TRANSFERASE 16 U/L (10-37); BILIRUBIN,TOTAL 0.6 MG/DL (0.1-1.0); BLOOD UREA NITROGEN 23 MG/DL (7-18); BUN/CREATININE RATIO 29.1 (10.0-20.0); CALCIUM 8.4 MG/DL (8.5-10.1); CHLORIDE 99 MMOL/L (99-107); CREATININE 0.79 MG/DL (0.40-0.90); GLUCOSE 241 MG/DL (70-104); MAGNESIUM 1.8 MG/DL (1.5-2.4); PHOSPHORUS 2.9 MG/DL (2.3-4.5); POTASSIUM 3.4 MMOL/L (3.5-5.1); SODIUM 138 MMOL/L (135-145); TOTAL CARBON DIOXIDE 34.6 MMOL/L (24-32); TOTAL PROTEIN 6.2 G/DL (6.4-8.2); eGFR 77 ML/MIN
[2022-10-04] MEDS ORDERED: potassium Cl 40MEQ/1/2NS 520ml 520 ML IV PRN (09:05)
[2022-10-04] MEDS ORDERED: magnesium 2GM in 50ml NS 50 ML IV PRN (09:05)
[2022-10-04] MEDS ORDERED: potassium Cl 20 mEq SR tablet PO PRN ×2 (09:05)
[2022-10-04] MEDS ORDERED: magnesium Cl slow-release 64mg tablet PO PRN (09:05)
[2022-10-04] MEDS ORDERED: magnesium 4gm in 100ml NS 100 ML IV PRN (09:05)
[2022-10-04] MEDS: insulin Lispro (HumaLOG) vial - multi-dose SQ SCH ×2 (09:59→13:55)
[2022-10-04] MEDS: HYDROcodone/acetaminophen 5mg/325mg tablet PO PRN (10:06)
[2022-10-04] MEDS ORDERED: EMPA10TA PO (14:23)
[2022-10-04] MEDS ORDERED: SPIR25TA5 PO (14:23)
[2022-10-04] MEDS ORDERED: ASPI-611 PO (15:07)
[2022-10-04] MEDS ORDERED: CARV-49 PO (15:07)
[2022-10-04] MEDS ORDERED: LACT1CAP26 PO (15:07)
[2022-10-04] MEDS ORDERED: AMOX-580 PO (15:07)
[2022-10-04] MEDS ORDERED: ALBU6.7H14 INH (15:23)
[2022-10-04] MEDS ORDERED: BUDE10.22 INH (15:23)
--- NOTE | 2022-10-04 16:45 | NUR ---
Discharge instructions discussed with patient. all questions answered. pt states she understands all instructions and will follow up with her primary and a machine iii coremaker. Pt leaving unit via wheelchair.
[2022-10-04] MEDS ORDERED: K and/or MAG REPLACEMENT MC SCH (20:00)
== END 2022-10-04 17:01 | disposition home or self-care (01) | DRG 720 ==
LOC: ER 13:34 → ED HOLD 19:58 → UNDOADMIN 20:03 → ED HOLD 20:03 → PCU 3S 23:47 → ED HOLD 23:47
PROVIDERS: ADMIT Family Medicine; ATTEND Family Medicine
PROC: B32T1ZZ Computerized Tomography (CT Scan) of Left Pulmonary Artery using Low Osmolar Contrast (ICD-10-PCS; principal; 2022-09-29)
PROC: B3201ZZ Computerized Tomography (CT Scan) of Thoracic Aorta using Low Osmolar Contrast (ICD-10-PCS; 2022-09-29)
PROC: B32S1ZZ Computerized Tomography (CT Scan) of Right Pulmonary Artery using Low Osmolar Contrast (ICD-10-PCS; 2022-09-29)
DX: A41.9 Sepsis, unspecified organism (principal); J96.20 Acute and chronic respiratory failure, unspecified whether with hypoxia or hypercapnia; J69.0 Pneumonitis due to inhalation of food and vomit; I21.A1 Myocardial infarction type 2; J18.9 Pneumonia, unspecified organism; J44.1 Chronic obstructive pulmonary disease with (acute) exacerbation; E11.42 Type 2 diabetes mellitus with diabetic polyneuropathy; J45.901 Unspecified asthma with (acute) exacerbation; E86.0 Dehydration; Z20.822 Contact with and (suspected) exposure to COVID-19; G89.29 Other chronic pain; D86.9 Sarcoidosis, unspecified; K29.70 Gastritis, unspecified, without bleeding; Z82.49 Family history of ischemic heart disease and other diseases of the circulatory system; Z87.891 Personal history of nicotine dependence
CPT/HCPCS: 36415; 71046; 71275; 80053; 80061; 80305; 80320; 81001; 81025; 82948; 83036; 83605; 83735; 83880; 84100; 84145; 84439; 84443; 84484; 85025; 85379; 85610; 85730; 87040; 87081; 87502; 87503; 87811; 92508; 92616; 93306; 94640; 94664; 94668; 94760; 97116; 97161; 97530; 99285; A6258; A6449; G0378; J0456; J1644; J1815; J1940; J2270; J2405; J2543; J2930; J3370; J3490; J7030; Q9967

== ENCOUNTER 2023-10-04 07:34 | Day surgery (SDC) | payer MEDICAID ==
[2023-10-04] VITALS (14 sets, daily range): BP systolic 117–149; BP diastolic 64–90; PULSE 76–91; RESP 12–20; TEMP 97.6; O2SAT 92–97
[~2023-10-04] VITALS: Ht 154.9 cm; Wt 101.3 kg
[~2023-10-04 07:34] MED LIST changes: +ALBU6.7H14 INH; -ALBU8.5H17 IH; +ATOR20TA66 PO; -AZIT250T PO; +BENZ200C53 PO; +BUDE10.22 INH; +CARV-49 PO; -CYCL-1 PO; +EMPA10TA PO; +FENO145T25 PO; +GABA300C PO; +INSU100I31 SQ; +INSU100I8 SQ; +LACT1CAP26 PO; +LISI10TA27 PO; -MECL-159 PO; +METF-436 PO; -METH4TAB3 PO; -ONDA4TAB6 PO; +SEMA1PEN3 SQ; +SERT-433 PO; +SERT-434 PO; +SPIR25TA5 PO
[2023-10-04] MEDS ORDERED: sodium bicarbonate 1meq/ml syr 150 ML in dextrose 5%-water 1,000 ML IV SCH ×2 (08:35→08:44)
[2023-10-04 08:51] LABS: ALBUMIN 3.1 G/DL (3.4-5.0); ANION GAP 10 (8-16); BLOOD UREA NITROGEN 27 MG/DL (7-18); CALCIUM 9.1 MG/DL (8.5-10.1); CHLORIDE 104 MMOL/L (99-107); CREATININE 0.87 MG/DL (0.40-0.90); GLUCOSE 206 MG/DL (70-104); MAGNESIUM 1.7 MG/DL (1.5-2.4); POTASSIUM 4.4 MMOL/L (3.5-5.1); SODIUM 140 MMOL/L (135-145); TOTAL CARBON DIOXIDE 25.9 MMOL/L (24-32); eCRCL 57 ML/MIN; eGFR 68 ML/MIN
[2023-10-04 08:52] LABS: BASOPHILS # (AUTO) 0.1 X10'3 (0-0.2); BASOPHILS % (AUTO) 1.9 % (0-1); EOSINOPHILS # (AUTO) 0.2 X10'3 (0-0.9); EOSINOPHILS % (AUTO) 2.3 % (0-6); HEMATOCRIT 37.1 % (35.0-45.0); HEMOGLOBIN 11.6 g/dl (12.0-16.0); LYMPHOCYTES # (AUTO) 1.1 X10'3 (1.1-4.8); LYMPHOCYTES % (AUTO) 16.1 % (21-51); MEAN CORPUSCULAR HEMOGLOBIN 24.4 PG (27.0-31.0); MEAN CORPUSCULAR HGB CONC 31.3 g/dL (33.0-36.5); MEAN CORPUSCULAR VOLUME 77.9 FL (78-98); MEAN PLATELET VOLUME 8.9 FL (7.4-10.4); MONOCYTES # (AUTO) 0.6 X10'3 (0-0.9); MONOCYTES % (AUTO) 8.9 % (2-12); NEUTROPHILS # (AUTO) 4.9 X10'3 (1.8-7.7); NEUTROPHILS % (AUTO) 70.8 % (42-75); PLATELET COUNT 397 X10'3 (140-440); RED BLOOD COUNT 4.77 X10'6 (4.20-5.60); RED CELL DISTRIBUTION WIDTH 16.4 % (11.5-14.5); WHITE BLOOD COUNT 6.9 X10'3 (4.5-11.0)
[2023-10-04 08:53] LABS: INR 1.1 INR; PROTHROMBIN TIME 11.6 SECONDS (9.0-12.0)
[2023-10-04] MEDS: sodium bicarbonate 1meq/ml syr 150 ML in dextrose 5%-water 1,000 ML IV ONE (09:27)
[2023-10-04] MEDS: diphenhydrAMINE 25mg capsule PO PRN (09:27)
[2023-10-04] MEDS: normal saline 1,000 ML IV SCH (09:30)
[2023-10-04] MEDS ORDERED: midazolam 1 mg/ML 2ml injection ONE ×2 (10:11→10:48)
[2023-10-04] MEDS ORDERED: LIDOcaine 1% 30ml preserv. free vial ONE (10:11)
[2023-10-04] MEDS ORDERED: fentaNYL/PF 50MCG/1 ML 2ML syringe ONE (10:11)
[2023-10-04] MEDS ORDERED: heparin 1,000unit/ml 10ml vial 10 ML ONE (10:12)
[2023-10-04] MEDS ORDERED: iohexol 350MG/ML 100ml bottle IV ONE ×2 (10:12→11:13)
[2023-10-04] MEDS ORDERED: iohexol 350 MG/ML 50ML vial IV ONE ×2 (10:12→11:08)
[2023-10-04] MEDS ORDERED: HYDROmorphone 1 mg/ml syringe ONE (10:44)
[2023-10-04] MEDS ORDERED: HYDROcodone/acetaminophen 5mg/325mg tablet PO PRN (12:00)
[2023-10-04] MEDS ORDERED: HYDROcodone/acetaminophen 10/325mg tab PO PRN (12:00)
[2023-10-04] MEDS ORDERED: proCHLORperazine 10 MG/2 ml inj IV PRN (12:00)
[2023-10-04] MEDS ORDERED: ondansetron/PF 4mg/2ml inj IV PRN (12:00)
== END 2023-10-04 15:00 | disposition home or self-care (01) ==
LOC: SSTAY O 07:34
PROVIDERS: ATTEND Internal Medicine Cardiovascular Disease
DX: R07.9 Chest pain, unspecified (principal); I25.119 Atherosclerotic heart disease of native coronary artery with unspecified angina pectoris; I10 Essential (primary) hypertension; E11.42 Type 2 diabetes mellitus with diabetic polyneuropathy; E78.5 Hyperlipidemia, unspecified; J44.9 Chronic obstructive pulmonary disease, unspecified; E66.9 Obesity, unspecified; F41.9 Anxiety disorder, unspecified; F32.A Depression, unspecified; F43.10 Post-traumatic stress disorder, unspecified; I42.9 Cardiomyopathy, unspecified; Z79.4 Long term (current) use of insulin; Z79.82 Long term (current) use of aspirin; Z79.84 Long term (current) use of oral hypoglycemic drugs; Z79.899 Other long term (current) drug therapy; Z68.41 Body mass index [BMI] 40.0-44.9, adult
CPT/HCPCS: 80048; 82948; 83735; 85025; 85610; 93005; 93458; 99152; 99153; J1170; J1644; J2250; J3010; J3490; J7030; J7070; Q0163; Q9967; A6258; C1725; C1760; C1894

== ENCOUNTER 2024-04-17 12:37 | Inpatient (IN) | payer MEDICAID ==
[~2024-04-17] VITALS: Ht 154.9 cm; Wt 105.8 kg
[~2024-04-17 12:37] MED LIST changes: -ATOR20TA66 PO; -BENZ200C53 PO; -LACT1CAP26 PO
[2024-04-17 13:27] LABS: BASOPHILS % (AUTO) 0.4 % (0-1); EOSINOPHILS # (AUTO) 0.3 X10'3 (0-0.9); EOSINOPHILS % (AUTO) 3.3 % (0-6); HEMATOCRIT 36.6 % (35.0-45.0); HEMOGLOBIN 11.4 g/dl (12.0-16.0); LYMPHOCYTES # (AUTO) 0.4 X10'3 (1.1-4.8); LYMPHOCYTES % (AUTO) 4.2 % (21-51); MEAN CORPUSCULAR HEMOGLOBIN 25.5 PG (27.0-31.0); MEAN CORPUSCULAR HGB CONC 31.2 g/dL (33.0-36.5); MEAN CORPUSCULAR VOLUME 81.6 FL (78-98); MEAN PLATELET VOLUME 8.6 FL (7.4-10.4); MONOCYTES # (AUTO) 0.6 X10'3 (0-0.9); MONOCYTES % (AUTO) 6.3 % (2-12); NEUTROPHILS # (AUTO) 8.8 X10'3 (1.8-7.7); NEUTROPHILS % (AUTO) 85.8 % (42-75); PLATELET COUNT 489 X10'3 (140-440); RED BLOOD COUNT 4.48 X10'6 (4.20-5.60); RED CELL DISTRIBUTION WIDTH 19.6 % (11.5-14.5); WHITE BLOOD COUNT 10.3 X10'3 (4.5-11.0)
[2024-04-17 14:46] LABS: ANISOCYTOSIS 2+; ELLIPTOCYTES FEW; HYPOCHROMASIA 1+; PLATELET ESTIMATE INCREASED; POLYCHROMASIA FEW; TEAR DROP CELLS FEW
[2024-04-17 15:40] LABS: ALANINE AMINOTRANSFERASE 16 U/L (12-78); ALBUMIN 2.4 G/DL (3.4-5.0); ALBUMIN/GLOBULIN RATIO 0.5 (1.1-1.5); ALKALINE PHOSPHATASE 50 IU/L (46-116); ANION GAP 6 (8-16); ASPARTATE AMINO TRANSFERASE 28 U/L (10-37); BILIRUBIN,TOTAL 0.6 MG/DL (0.1-1.0); BLOOD UREA NITROGEN 15 MG/DL (7-18); BUN/CREATININE RATIO 16.7 (10.0-20.0); CALCIUM 8.6 MG/DL (8.5-10.1); CHLORIDE 105 MMOL/L (99-107); POTASSIUM 3.5 MMOL/L (3.5-5.1); SODIUM 141 MMOL/L (135-145); TOTAL CARBON DIOXIDE 30.3 MMOL/L (24-32); TOTAL PROTEIN 7.4 G/DL (6.4-8.2); eCRCL 55 ML/MIN; eGFR 66 ML/MIN
[2024-04-17 15:49] LABS: GLUCOSE 46 MG/DL (70-104)
[2024-04-17] MEDS: dextrose 50%-water 50ml dispensing syringe IV ONE ×2 (15:56→15:59)
[2024-04-17] MEDS: normal saline 1000ml 1,000 ML IV ONE (17:00)
[2024-04-17 17:24] LABS: BILIRUBIN,URINE NEGATIVE (Neg); CLARITY,URINE CLEAR (Clear); COLOR,URINE YELLOW (Yellow); GLUCOSE, URINE >=1000 mg/dl (Neg); KETONES,URINE NEGATIVE (Neg); LEUKOCYTE ESTERASE ,URINE NEGATIVE (Neg); NITRITES, URINE NEGATIVE (Neg); OCCULT BLOOD,URINE LARGE (Neg); PROTEIN,URINE >=300 mg/dl (Neg)
[2024-04-17 17:32] LABS: UA COLLECTION TYPE CLN CATCH MIDSTREAM
[2024-04-17 17:34] LABS: BACTERIA,URINE FEW /HPF (Neg); MUCUS STRANDS NONE SEEN /LPF (Neg); RBC,URINE 20-50 /HPF (0-2); SQUAMOUS EPITHELIAL CELL,UR FEW /LPF (FEW); WBC,URINE 0-4 /HPF (0-4)
[2024-04-17 17:38] LABS: URINE AMPHETAMINE SCREEN NEGATIVE (Neg); URINE BARBITUATE SCREEN NEGATIVE (Neg); URINE BENZODIAZEPINES SCREEN NEGATIVE (Neg); URINE CANNABINOID SCREEN NEGATIVE (Neg); URINE COCAINE SCREEN NEGATIVE (Neg); URINE METHADONE SCREEN NEGATIVE (Neg); URINE OPIATE SCREEN NEGATIVE (Neg); URINE PHENCYCLIDINE SCREEN NEGATIVE (Neg)
[2024-04-17 18:22] LABS: PRO BRAIN NATRIURETIC PEPTIDE 4439 PG/ML (0-125)
[2024-04-17] MEDS: furosemide 10 MG/1 ML 10ml inj IV ONE (18:45)
[2024-04-17] MEDS ORDERED: DEXTROSE 15 GM of carb/4 tabs (each vial/BOTTLE has 4 tablets) PO PRN ×2 (20:55)
[2024-04-17] MEDS ORDERED: glucagon, human recombinant 1mg kit SUBCUT PRN (20:55)
[2024-04-17 21:15] LABS: HEMOGLOBIN A1C 6.8 % (4.5-6.2)
[2024-04-17] MEDS ORDERED: magnesium Cl slow-release 64mg tablet PO PRN (21:25)
[2024-04-17] MEDS ORDERED: potassium Cl 40MEQ/1/2NS 520ml 520 ML IV PRN (21:25)
[2024-04-17] MEDS ORDERED: magnesium sulf-water 2g/50mL 50 ML IV PRN (21:25)
[2024-04-17] MEDS ORDERED: magnesium sulf-water 4G/100mL 100 ML IV PRN (21:25)
[2024-04-17] MEDS ORDERED: acetaminophen 325mg tablet PO PRN (21:25)
[2024-04-17] MEDS ORDERED: potassium Cl 20 mEq SR tablet PO PRN (21:25)
[2024-04-17] MEDS ORDERED: mag hydrox/Alum hydrox/simeth 30ml oral suspension PO PRN (21:25)
[2024-04-17] MEDS ORDERED: morphine 2 MG/ML inj. syringe IV PRN (21:25)
[2024-04-17 22:00] LABS: APTT 27 SECONDS (22-32); INR 1.4 INR
[2024-04-17] MEDS ORDERED: albuterol 2.5 MG/3 ML nebule NEB PRN (22:45)
[2024-04-17] MEDS ORDERED: ipratropium/albuterol 3ml nebule NEB PRN (22:45)
[2024-04-17] MEDS: VANCOMYCIN/WATER FOR INJ (PEG) 1.5GM/300 ML IVPB IV ONE (23:33)
[2024-04-17] MEDS: dextrose 50%-water 50ml dispensing syringe IV PRN (23:39)
[2024-04-18] VITALS (9 sets, daily range): BP systolic 126–167; BP diastolic 62–91; PULSE 98–122; RESP 16–22; TEMP 97.9–98.7; O2SAT 88–99
[2024-04-18] MEDS ORDERED: vancomycin/NS 1 GM ADD-VANTAGE 250 ML IV SCH
[2024-04-18] MEDS: piperacillin/tazo 3.375gm/50ml 50 ML IV SCH (00:51)
[2024-04-18] MEDS: HYDROcodone/acetaminophen 10/325mg tab PO PRN (05:18)
[2024-04-18 07:24] LABS: BASOPHILS % (AUTO) 0.3 % (0-1); EOSINOPHILS # (AUTO) 0.2 X10'3 (0-0.9); EOSINOPHILS % (AUTO) 1.9 % (0-6); HEMATOCRIT 32.7 % (35.0-45.0); HEMOGLOBIN 10.3 g/dl (12.0-16.0); LYMPHOCYTES # (AUTO) 0.8 X10'3 (1.1-4.8); MEAN CORPUSCULAR HEMOGLOBIN 25.5 PG (27.0-31.0); MEAN CORPUSCULAR HGB CONC 31.6 g/dL (33.0-36.5); MEAN CORPUSCULAR VOLUME 80.7 FL (78-98); MEAN PLATELET VOLUME 8.4 FL (7.4-10.4); MONOCYTES # (AUTO) 0.8 X10'3 (0-0.9); MONOCYTES % (AUTO) 5.9 % (2-12); NEUTROPHILS # (AUTO) 11.3 X10'3 (1.8-7.7); NEUTROPHILS % (AUTO) 85.9 % (42-75); PLATELET COUNT 499 X10'3 (140-440); RED BLOOD COUNT 4.05 X10'6 (4.20-5.60); RED CELL DISTRIBUTION WIDTH 19.1 % (11.5-14.5); WHITE BLOOD COUNT 13.1 X10'3 (4.5-11.0)
[2024-04-18] MEDS: dextrose 50%-water 50ml dispensing syringe IV PRN (07:39)
[2024-04-18 07:45] LABS: ALBUMIN 2.4 G/DL (3.4-5.0); ANION GAP 9 (8-16); BLOOD UREA NITROGEN 13 MG/DL (7-18); BUN/CREATININE RATIO 14.3 (10.0-20.0); CALCIUM 8.4 MG/DL (8.5-10.1); CHLORIDE 104 MMOL/L (99-107); CHOL/HDL RATIO 3.7 (0.00-4.99); CHOLESTEROL 88 MG/DL (0-200); CREATININE 0.91 MG/DL (0.40-0.90); HDL CHOLESTEROL 24 MG/DL (35-60); MAGNESIUM 1.6 MG/DL (1.5-2.4); POTASSIUM 3.4 MMOL/L (3.5-5.1); SODIUM 141 MMOL/L (135-145); TOTAL CARBON DIOXIDE 28.1 MMOL/L (24-32); TRIGLYCERIDES 291 MG/DL (20-135); eCRCL 55 ML/MIN; eGFR 65 ML/MIN
[2024-04-18 07:55] LABS: GLUCOSE 46 MG/DL (70-104)
[2024-04-18] MEDS ORDERED: furosemide 20MG tablet PO SCH (08:00)
[2024-04-18] MEDS: K and/or MAG REPLACEMENT MC SCH (08:00)
[2024-04-18] MEDS: EMPAGLIFLOZIN 10 MG TABLET PO SCH (08:00)
[2024-04-18] MEDS: docusate sod 100mg capsule PO SCH (08:00)
[2024-04-18 08:10] LABS: LDL CHOLESTEROL 49 MG/DL (50-100)
[2024-04-18] MEDS ORDERED: albuterol 2.5 MG/3 ML nebule NEB PRN (08:30)
[2024-04-18] MEDS: vancomycin/NS 1 GM ADD-VANTAGE 250 ML IV SCH (08:47)
[2024-04-18] MEDS: gabapentin 300mg capsule PO SCH (09:22)
[2024-04-18] MEDS: carvedilol 6.25mg tablet PO SCH (09:22)
[2024-04-18] MEDS: pantoprazole 40mg Tablet.DR PO SCH (09:23)
[2024-04-18] MEDS: atorvastatin 20mg tablet PO SCH (09:23)
[2024-04-18] MEDS: aspirin 81mg, enteric-coated 1 TAB TABLET.DR PO SCH (09:23)
[2024-04-18] MEDS: lisinopril 10 MG tablet PO SCH (09:24)
[2024-04-18] MEDS: lactobacillus rhamnosus 10,000 MMU CELLS/CAPSULE PO SCH (09:24)
[2024-04-18] MEDS: spironolactone 25 MG tablet PO SCH (09:25)
[2024-04-18] MEDS: potassium Cl 20 mEq SR tablet PO PRN (09:25)
[2024-04-18] MEDS: enoxaparin 40mg/0.4ml syringe SUBCUT SCH (09:26)
[2024-04-18] MEDS: ondansetron/PF 4mg/2ml inj IV PRN (11:11)
[2024-04-18] MEDS: nystatin 15 GM powder TP SCH (17:00)
[2024-04-18] MEDS: VANCOMYCIN LEVEL IV ONE (23:42)
[2024-04-18] MEDS: furosemide 40mg/4ml inj IV SCH (23:43)
[2024-04-18] MEDS: fluconazole-Diflucan 200mg/NS 100 ML IV SCH (23:50)
[2024-04-19] VITALS (8 sets, daily range): BP systolic 104–130; BP diastolic 61–75; PULSE 81–102; RESP 15–20; TEMP 97.6–98.6; O2SAT 90–95
[2024-04-19 06:36] LABS: BASOPHILS % (AUTO) 0.2 % (0-1); EOSINOPHILS # (AUTO) 0.1 X10'3 (0-0.9); EOSINOPHILS % (AUTO) 0.9 % (0-6); HEMATOCRIT 29.9 % (35.0-45.0); HEMOGLOBIN 9.3 g/dl (12.0-16.0); LYMPHOCYTES # (AUTO) 0.7 X10'3 (1.1-4.8); LYMPHOCYTES % (AUTO) 6.2 % (21-51); MEAN CORPUSCULAR HEMOGLOBIN 25.4 PG (27.0-31.0); MEAN CORPUSCULAR HGB CONC 31.1 g/dL (33.0-36.5); MEAN CORPUSCULAR VOLUME 81.6 FL (78-98); MEAN PLATELET VOLUME 8.4 FL (7.4-10.4); MONOCYTES # (AUTO) 0.9 X10'3 (0-0.9); MONOCYTES % (AUTO) 7.6 % (2-12); NEUTROPHILS # (AUTO) 10.2 X10'3 (1.8-7.7); NEUTROPHILS % (AUTO) 85.1 % (42-75); PLATELET COUNT 430 X10'3 (140-440); RED BLOOD COUNT 3.67 X10'6 (4.20-5.60); RED CELL DISTRIBUTION WIDTH 18.9 % (11.5-14.5)
[2024-04-19 07:11] LABS: ALBUMIN 2.1 G/DL (3.4-5.0); ANION GAP 7 (8-16); BLOOD UREA NITROGEN 22 MG/DL (7-18); BUN/CREATININE RATIO 14.4 (10.0-20.0); CALCIUM 7.9 MG/DL (8.5-10.1); CHLORIDE 104 MMOL/L (99-107); CREATININE 1.53 MG/DL (0.40-0.90); GLUCOSE 201 MG/DL (70-104); MAGNESIUM 1.7 MG/DL (1.5-2.4); POTASSIUM 4.1 MMOL/L (3.5-5.1); SODIUM 138 MMOL/L (135-145); eCRCL 32 ML/MIN; eGFR 36 ML/MIN
[2024-04-19 08:16] LABS: ANISOCYTOSIS 2+; HYPOCHROMASIA 1+; PLATELET ESTIMATE NORMAL; TARGET CELLS FEW
[2024-04-19 08:17] LABS: ELLIPTOCYTES FEW
[2024-04-19] MEDS: VANCOMYCIN 500MG/WATER FOR INJ (PEG) PREMIX 100 ML IV SCH (08:49)
[2024-04-19] MEDS: vancomycin/NS 1 GM ADD-VANTAGE 250 ML IV SCH (19:57)
[2024-04-19] MEDS: INSULIN LISPRO 100 UNIT/ML INSULN.PEN MULTI-DOSE SQ SCH (21:55)
[2024-04-19] MEDS: insulin glargine (Lantus) pen - multi-dose SQ SCH (21:55)
[2024-04-20 05:09] LABS: BASOPHILS % (AUTO) 0.2 % (0-1); EOSINOPHILS # (AUTO) 0.2 X10'3 (0-0.9); EOSINOPHILS % (AUTO) 1.3 % (0-6); HEMOGLOBIN 9.6 g/dl (12.0-16.0); LYMPHOCYTES # (AUTO) 0.6 X10'3 (1.1-4.8); MEAN CORPUSCULAR HEMOGLOBIN 26.1 PG (27.0-31.0); MEAN CORPUSCULAR HGB CONC 31.9 g/dL (33.0-36.5); MEAN CORPUSCULAR VOLUME 81.9 FL (78-98); MEAN PLATELET VOLUME 8.4 FL (7.4-10.4); MONOCYTES # (AUTO) 0.8 X10'3 (0-0.9); MONOCYTES % (AUTO) 6.9 % (2-12); NEUTROPHILS # (AUTO) 10.1 X10'3 (1.8-7.7); NEUTROPHILS % (AUTO) 86.6 % (42-75); PLATELET COUNT 489 X10'3 (140-440); RED BLOOD COUNT 3.66 X10'6 (4.20-5.60); RED CELL DISTRIBUTION WIDTH 19.1 % (11.5-14.5); WHITE BLOOD COUNT 11.7 X10'3 (4.5-11.0)
[2024-04-20 05:30] LABS: ALBUMIN 2.2 G/DL (3.4-5.0); ANION GAP 5 (8-16); BLOOD UREA NITROGEN 29 MG/DL (7-18); BUN/CREATININE RATIO 15.4 (10.0-20.0); CALCIUM 8.7 MG/DL (8.5-10.1); CHLORIDE 104 MMOL/L (99-107); CREATININE 1.88 MG/DL (0.40-0.90); GLUCOSE 226 MG/DL (70-104); MAGNESIUM 1.9 MG/DL (1.5-2.4); SODIUM 139 MMOL/L (135-145); eCRCL 26 ML/MIN; eGFR 28 ML/MIN
[2024-04-20 05:37] LABS: GIANT PLATELET FEW; LARGE PLATELETS FEW; PLATELET ESTIMATE INCREASED
[2024-04-20 05:38] LABS: ANISOCYTOSIS 1+; MICROCYTOSIS 1+
[2024-04-20 06:00] VITALS: BP 128/74; PULSE 85; RESP 16; TEMP 97; O2SAT 99
[2024-04-20 08:00] VITALS: RESP 16; O2SAT 98
[2024-04-20] MEDS: CefTRIAXone/D5W-Rocephin 1gm 50 ML IV SCH (08:11)
[2024-04-20] MEDS: furosemide 40mg/4ml inj IV SCH ×2 (08:14→15:14)
[2024-04-20] MEDS: VANCOMYCIN LEVEL IV ONE (08:30)
[2024-04-20 08:41] VITALS: PULSE 88; RESP 19
[2024-04-20] MEDS: INSULIN LISPRO 100 UNIT/ML INSULN.PEN MULTI-DOSE SQ SCH (09:00)
[2024-04-20 10:00] VITALS: BP 119/53; PULSE 68; RESP 13; TEMP 97.5; O2SAT 99
[2024-04-20] MEDS ORDERED: spironolactone 25 MG tablet PO SCH (14:30)
[2024-04-20] MEDS: metolazone 2.5mg tablet PO SCH (15:14)
[2024-04-20 15:52] LABS: FERRITIN 90 NG/ML (8-252)
[2024-04-20 16:26] LABS: % IRON SATURATION 7 % (11-46); IRON 18 UG/DL (49-151); TOTAL IRON BINDING CAPACITY 244 UG/DL (259-388)
[2024-04-20 18:00] VITALS: BP 129/78; PULSE 86; RESP 15; TEMP 98; O2SAT 100
[2024-04-20 20:00] VITALS: RESP 15; O2SAT 100
[2024-04-21] VITALS (7 sets, daily range): BP systolic 102–149; BP diastolic 58–77; PULSE 74–89; RESP 16–22; TEMP 97.1–98.5; O2SAT 75–100
[2024-04-21 07:08] LABS: ALBUMIN 2.6 G/DL (3.4-5.0); ANION GAP 7 (8-16); BASOPHILS % (AUTO) 0.3 % (0-1); BLOOD UREA NITROGEN 33 MG/DL (7-18); BUN/CREATININE RATIO 16.5 (10.0-20.0); CALCIUM 9.3 MG/DL (8.5-10.1); CHLORIDE 99 MMOL/L (99-107); EOSINOPHILS # (AUTO) 0.5 X10'3 (0-0.9); EOSINOPHILS % (AUTO) 4.4 % (0-6); GLUCOSE 226 MG/DL (70-104); HEMOGLOBIN 10.2 g/dl (12.0-16.0); LACTATE DEHYDROGENASE 240 U/L (81-234); LYMPHOCYTES # (AUTO) 0.5 X10'3 (1.1-4.8); LYMPHOCYTES % (AUTO) 4.5 % (21-51); MEAN CORPUSCULAR HEMOGLOBIN 25.2 PG (27.0-31.0); MEAN CORPUSCULAR VOLUME 81.4 FL (78-98); MONOCYTES # (AUTO) 0.7 X10'3 (0-0.9); MONOCYTES % (AUTO) 6.1 % (2-12); NEUTROPHILS # (AUTO) 10.2 X10'3 (1.8-7.7); NEUTROPHILS % (AUTO) 84.7 % (42-75); PLATELET COUNT 599 X10'3 (140-440); POTASSIUM 3.6 MMOL/L (3.5-5.1); RED BLOOD COUNT 4.05 X10'6 (4.20-5.60); RED CELL DISTRIBUTION WIDTH 19.2 % (11.5-14.5); SODIUM 138 MMOL/L (135-145); THYROID STIMULATING HORMONE 1.12 ulU/ml (0.34-4.50); TOTAL CARBON DIOXIDE 32.4 MMOL/L (24-32); WHITE BLOOD COUNT 12.1 X10'3 (4.5-11.0); eCRCL 25 ML/MIN; eGFR 26 ML/MIN
[2024-04-21] MEDS: enoxaparin 30mg/0.3ml syringe SUBCUT SCH (07:25)
[2024-04-21] MEDS: spironolactone 50 MG tablet PO SCH ×2 (07:26→15:10)
[2024-04-21 08:28] LABS: HIV ANTIBODY 1&2 RAPID NON-REACTIVE (Neg)
[2024-04-21] MEDS: VANCOMYCIN LEVEL IV ONE ×2 (09:16→21:22)
[2024-04-21] MEDS ORDERED: GADOTERATE MEGLUMINE 7.5 MMOL/15 ML VIAL IV ONE (14:35)
[2024-04-21] MEDS: furosemide 40mg/4ml inj IV SCH (15:05)
[2024-04-21] MEDS: acetaZOLAMIDE IV 500mg inj IV SCH (15:10)
[2024-04-22] VITALS (7 sets, daily range): BP systolic 103–149; BP diastolic 44–76; PULSE 78–108; RESP 14–24; TEMP 96.8–98; O2SAT 88–98
[2024-04-22 06:22] LABS: BASOPHILS % (AUTO) 0.4 % (0-1); EOSINOPHILS # (AUTO) 0.3 X10'3 (0-0.9); EOSINOPHILS % (AUTO) 2.9 % (0-6); HEMATOCRIT 30.7 % (35.0-45.0); HEMOGLOBIN 9.7 g/dl (12.0-16.0); LYMPHOCYTES # (AUTO) 0.8 X10'3 (1.1-4.8); LYMPHOCYTES % (AUTO) 7.6 % (21-51); MEAN CORPUSCULAR HEMOGLOBIN 25.7 PG (27.0-31.0); MEAN CORPUSCULAR HGB CONC 31.6 g/dL (33.0-36.5); MEAN CORPUSCULAR VOLUME 81.4 FL (78-98); MEAN PLATELET VOLUME 9.1 FL (7.4-10.4); MONOCYTES # (AUTO) 0.9 X10'3 (0-0.9); MONOCYTES % (AUTO) 8.7 % (2-12); NEUTROPHILS # (AUTO) 8.8 X10'3 (1.8-7.7); NEUTROPHILS % (AUTO) 80.4 % (42-75); PLATELET COUNT 486 X10'3 (140-440); RED BLOOD COUNT 3.77 X10'6 (4.20-5.60); RED CELL DISTRIBUTION WIDTH 19.1 % (11.5-14.5); WHITE BLOOD COUNT 10.9 X10'3 (4.5-11.0)
[2024-04-22 06:50] LABS: ALBUMIN 2.1 G/DL (3.4-5.0); ANION GAP 6 (8-16); BLOOD UREA NITROGEN 36 MG/DL (7-18); BUN/CREATININE RATIO 18.7 (10.0-20.0); CALCIUM 9.6 MG/DL (8.5-10.1); CHLORIDE 98 MMOL/L (99-107); CREATININE 1.93 MG/DL (0.40-0.90); GLUCOSE 250 MG/DL (70-104); POTASSIUM 3.5 MMOL/L (3.5-5.1); SODIUM 139 MMOL/L (135-145); TOTAL CARBON DIOXIDE 35.3 MMOL/L (24-32); eCRCL 26 ML/MIN; eGFR 27 ML/MIN
[2024-04-22 08:09] LABS: ANTISTREPTOLYSIN O AB 53.1 IU/mL (0.0-200.0); COMPLEMENT C3, SERUM 173 mg/dL (82-167); COMPLEMENT C4, SERUM 23 mg/dL (12-38)
[2024-04-22] MEDS: acetaZOLAMIDE IV 500mg inj IV SCH (08:44)
[2024-04-22] MEDS: furosemide 40mg/4ml inj IV SCH (08:45)
[2024-04-22] MEDS: heparin, porcine 5000 units/ml vial SQ SCH (20:24)
[2024-04-22] MEDS: insulin glargine (Lantus) pen - multi-dose SQ SCH (20:28)
[2024-04-23] VITALS (18 sets, daily range): BP systolic 94–155; BP diastolic 46–81; PULSE 79–104; RESP 14–21; TEMP 97–98.4; O2SAT 90–99
[2024-04-23 06:01] LABS: BASOPHILS % (AUTO) 0.4 % (0-1); EOSINOPHILS # (AUTO) 0.6 X10'3 (0-0.9); EOSINOPHILS % (AUTO) 5.5 % (0-6); HEMATOCRIT 31.9 % (35.0-45.0); HEMOGLOBIN 9.9 g/dl (12.0-16.0); LYMPHOCYTES % (AUTO) 9.4 % (21-51); MEAN CORPUSCULAR HEMOGLOBIN 25.2 PG (27.0-31.0); MEAN CORPUSCULAR HGB CONC 31.1 g/dL (33.0-36.5); MEAN CORPUSCULAR VOLUME 80.9 FL (78-98); MEAN PLATELET VOLUME 9.2 FL (7.4-10.4); MONOCYTES % (AUTO) 9.1 % (2-12); NEUTROPHILS # (AUTO) 8.2 X10'3 (1.8-7.7); NEUTROPHILS % (AUTO) 75.6 % (42-75); PLATELET COUNT 535 X10'3 (140-440); RED BLOOD COUNT 3.94 X10'6 (4.20-5.60); RED CELL DISTRIBUTION WIDTH 18.8 % (11.5-14.5); WHITE BLOOD COUNT 10.9 X10'3 (4.5-11.0)
[2024-04-23 06:34] LABS: ALANINE AMINOTRANSFERASE 14 U/L (12-78); ALBUMIN 2.1 G/DL (3.4-5.0); ALBUMIN/GLOBULIN RATIO 0.4 (1.1-1.5); ALKALINE PHOSPHATASE 58 IU/L (46-116); ANION GAP 10 (8-16); ASPARTATE AMINO TRANSFERASE 19 U/L (10-37); BILIRUBIN,TOTAL 0.4 MG/DL (0.1-1.0); BLOOD UREA NITROGEN 42 MG/DL (7-18); BUN/CREATININE RATIO 23.5 (10.0-20.0); CALCIUM 10.1 MG/DL (8.5-10.1); CHLORIDE 97 MMOL/L (99-107); CREATININE 1.79 MG/DL (0.40-0.90); GLUCOSE 231 MG/DL (70-104); POTASSIUM 3.1 MMOL/L (3.5-5.1); SODIUM 140 MMOL/L (135-145); TOTAL PROTEIN 7.1 G/DL (6.4-8.2); eCRCL 28 ML/MIN; eGFR 30 ML/MIN
[2024-04-23] MEDS ORDERED: bacitracin 15gm ointment TP ONE (06:34)
[2024-04-23] MEDS ORDERED: BUPIVAcaine 2.5mg/ml inj 50ml vial (contains preservative) ONE (06:34)
[2024-04-23] MEDS ORDERED: fentaNYL/PF 50MCG/1 ML 2ML syringe ONE (07:32)
[2024-04-23] MEDS ORDERED: midazolam 1 mg/ML 2ml injection ONE (07:32)
[2024-04-23] MEDS ORDERED: propofol inj 20 ML IV ONE (07:32)
[2024-04-23] MEDS ORDERED: sevoflurane 250ml liquid IH ONE (07:34)
[2024-04-23] MEDS ORDERED: morphine 4 MG/ML inj SYRINge IV PRN (07:40)
[2024-04-23] MEDS: ringers solution, lacted 1,000 ML IV SCH (07:40)
[2024-04-23] MEDS ORDERED: ondansetron/PF 4mg/2ml inj IV PRN (07:40)
[2024-04-23] MEDS ORDERED: proCHLORperazine 10 MG/2 ml inj IV PRN (07:40)
[2024-04-23] MEDS ORDERED: morphine 2 MG/ML inj. syringe IV PRN (07:40)
[2024-04-23] MEDS ORDERED: meperidine/PF 25mg/ml syringe IV PRN ×3 (07:40)
[2024-04-23] MEDS: morphine 2 MG/ML inj. syringe IV PRN (09:49)
[2024-04-23] MEDS: spironolactone 50 MG tablet PO SCH (09:54)
[2024-04-23] MEDS: furosemide 40mg/4ml inj IV SCH (09:55)
[2024-04-23 13:12] LABS: ANTINUCLEAR ANTIBODIES Negative (Negative)
[2024-04-23] MEDS ORDERED: potassium Cl 40MEQ/1/2NS 520ml 520 ML IV PRN (13:15)
[2024-04-23] MEDS ORDERED: magnesium sulf-water 4G/100mL 100 ML IV PRN (13:15)
[2024-04-23] MEDS ORDERED: magnesium sulf-water 2g/50mL 50 ML IV PRN (13:15)
[2024-04-23] MEDS ORDERED: potassium Cl 20 mEq SR tablet PO PRN (13:15)
[2024-04-23] MEDS: potassium Cl 20 mEq SR tablet PO PRN (13:29)
[2024-04-23 19:07] LABS: ATYPICAL PANCA <1:20 titer (Neg:<1:20); CYTOPLASMIC (C-ANCA) <1:20 titer (Neg:<1:20); PERINUCLEAR (P-ANCA) <1:20 titer (Neg:<1:20)
[2024-04-23] MEDS: K and/or MAG REPLACEMENT MC SCH (20:00)
[2024-04-24] VITALS (9 sets, daily range): BP systolic 102–134; BP diastolic 49–72; PULSE 78–103; RESP 14–20; TEMP 97.7–98.6; O2SAT 90–99
[2024-04-24 05:13] LABS: HBSAG SCREEN Negative (Negative)
[2024-04-24 08:30] LABS: MAGNESIUM 2.1 MG/DL (1.5-2.4)
[2024-04-24 08:59] LABS: BASOPHILS # (AUTO) 0.1 X10'3 (0-0.2); BASOPHILS % (AUTO) 0.5 % (0-1); EOSINOPHILS # (AUTO) 0.4 X10'3 (0-0.9); EOSINOPHILS % (AUTO) 3.4 % (0-6); HEMATOCRIT 32.2 % (35.0-45.0); LYMPHOCYTES # (AUTO) 1.1 X10'3 (1.1-4.8); MEAN CORPUSCULAR HEMOGLOBIN 25.4 PG (27.0-31.0); MEAN CORPUSCULAR HGB CONC 31.1 g/dL (33.0-36.5); MEAN CORPUSCULAR VOLUME 81.7 FL (78-98); MEAN PLATELET VOLUME 9.3 FL (7.4-10.4); MONOCYTES # (AUTO) 1.2 X10'3 (0-0.9); MONOCYTES % (AUTO) 9.6 % (2-12); NEUTROPHILS # (AUTO) 9.7 X10'3 (1.8-7.7); NEUTROPHILS % (AUTO) 77.5 % (42-75); PLATELET COUNT 553 X10'3 (140-440); RED BLOOD COUNT 3.94 X10'6 (4.20-5.60); WHITE BLOOD COUNT 12.5 X10'3 (4.5-11.0)
[2024-04-24 09:08] LABS: A/G RATIO 0.6 (0.7-1.7); ALBUMIN 2.6 g/dL (2.9-4.4); ALPHA-1-GLOBULIN 0.5 g/dL (0.0-0.4); ALPHA-2-GLOBULIN 1.1 g/dL (0.4-1.0); BETA GLOBULIN 1.4 g/dL (0.7-1.3); GAMMA GLOBULIN 1.3 g/dL (0.4-1.8); GLOBULIN, TOTAL 4.4 g/dL (2.2-3.9); M-SPIKE Not Observed g/dL (Not Observed)
[2024-04-24 10:07] LABS: ALANINE AMINOTRANSFERASE 17 U/L (12-78); ALBUMIN 2.2 G/DL (3.4-5.0); ALBUMIN/GLOBULIN RATIO 0.4 (1.1-1.5); ALKALINE PHOSPHATASE 56 IU/L (46-116); ANION GAP 10 (8-16); ASPARTATE AMINO TRANSFERASE 20 U/L (10-37); BILIRUBIN,TOTAL 0.3 MG/DL (0.1-1.0); BLOOD UREA NITROGEN 47 MG/DL (7-18); BUN/CREATININE RATIO 22.9 (10.0-20.0); CALCIUM 9.8 MG/DL (8.5-10.1); CHLORIDE 99 MMOL/L (99-107); CREATININE 2.05 MG/DL (0.40-0.90); GLUCOSE 303 MG/DL (70-104); POTASSIUM 4.3 MMOL/L (3.5-5.1); SODIUM 138 MMOL/L (135-145); TOTAL CARBON DIOXIDE 29.4 MMOL/L (24-32); TOTAL PROTEIN 7.6 G/DL (6.4-8.2); eCRCL 24 ML/MIN; eGFR 25 ML/MIN
[2024-04-24 15:48] LABS: TOTAL CELLS COUNTED 100
[2024-04-24 15:49] LABS: ANISOCYTOSIS 2+; PLATELET ESTIMATE INCREASED
[2024-04-24] MEDS: HYDROcodone/acetaminophen 5mg/325mg tablet PO PRN (15:56)
[2024-04-24] MEDS: magnesium hydroxide 30ml (MOM) UD suspension PO PRN (17:43)
[2024-04-24] MEDS: insulin glargine (Lantus) pen - multi-dose SQ SCH (21:43)
[2024-04-25 06:00] VITALS: BP 117/68; PULSE 79; RESP 17; TEMP 97.9; O2SAT 98
[2024-04-25 07:30] LABS: BASOPHILS # (AUTO) 0.1 X10'3 (0-0.2); BASOPHILS % (AUTO) 0.6 % (0-1); EOSINOPHILS # (AUTO) 0.9 X10'3 (0-0.9); EOSINOPHILS % (AUTO) 7.9 % (0-6); HEMATOCRIT 32.8 % (35.0-45.0); HEMOGLOBIN 10.1 g/dl (12.0-16.0); LYMPHOCYTES # (AUTO) 0.8 X10'3 (1.1-4.8); LYMPHOCYTES % (AUTO) 7.5 % (21-51); MEAN CORPUSCULAR HEMOGLOBIN 25.2 PG (27.0-31.0); MEAN CORPUSCULAR HGB CONC 30.7 g/dL (33.0-36.5); MEAN PLATELET VOLUME 8.9 FL (7.4-10.4); MONOCYTES % (AUTO) 8.4 % (2-12); NEUTROPHILS # (AUTO) 8.6 X10'3 (1.8-7.7); NEUTROPHILS % (AUTO) 75.6 % (42-75); PLATELET COUNT 441 X10'3 (140-440); RED CELL DISTRIBUTION WIDTH 18.7 % (11.5-14.5); WHITE BLOOD COUNT 11.4 X10'3 (4.5-11.0)
[2024-04-25 07:48] LABS: ALBUMIN 2.1 G/DL (3.4-5.0); ALBUMIN/GLOBULIN RATIO 0.4 (1.1-1.5); ALKALINE PHOSPHATASE 50 IU/L (46-116); ANION GAP 3 (8-16); ASPARTATE AMINO TRANSFERASE 24 U/L (10-37); BILIRUBIN,TOTAL 0.4 MG/DL (0.1-1.0); BLOOD UREA NITROGEN 50 MG/DL (7-18); BUN/CREATININE RATIO 27.3 (10.0-20.0); CALCIUM 9.2 MG/DL (8.5-10.1); CHLORIDE 98 MMOL/L (99-107); CREATININE 1.83 MG/DL (0.40-0.90); GLUCOSE 260 MG/DL (70-104); MAGNESIUM 2.6 MG/DL (1.5-2.4); POTASSIUM 4.4 MMOL/L (3.5-5.1); SODIUM 136 MMOL/L (135-145); TOTAL CARBON DIOXIDE 35.4 MMOL/L (24-32); TOTAL PROTEIN 7.2 G/DL (6.4-8.2); eCRCL 27 ML/MIN; eGFR 29 ML/MIN
[2024-04-25 08:25] LABS: ALANINE AMINOTRANSFERASE 10 U/L (12-78)
[2024-04-25 09:00] VITALS: RESP 17; O2SAT 98
[2024-04-25 10:00] VITALS: BP 124/60; PULSE 89; RESP 15; TEMP 98.2; O2SAT 97
[2024-04-25 18:00] VITALS: BP 140/74; PULSE 84; RESP 16; TEMP 98.6; O2SAT 99
[2024-04-25 20:00] VITALS: RESP 16; O2SAT 99
[2024-04-25] MEDS: insulin glargine (Lantus) pen - multi-dose SQ SCH (20:48)
[2024-04-25 22:00] VITALS: BP 138/80; PULSE 93; RESP 18; TEMP 98.2; O2SAT 97
[2024-04-26 06:00] VITALS: BP 129/77; PULSE 89; RESP 18; TEMP 97.9; O2SAT 94
[2024-04-26 07:44] LABS: BASOPHILS % (AUTO) 0.2 % (0-1); EOSINOPHILS # (AUTO) 0.7 X10'3 (0-0.9); EOSINOPHILS % (AUTO) 8.7 % (0-6); HEMATOCRIT 29.3 % (35.0-45.0); HEMOGLOBIN 9.2 g/dl (12.0-16.0); LYMPHOCYTES # (AUTO) 0.8 X10'3 (1.1-4.8); LYMPHOCYTES % (AUTO) 10.6 % (21-51); MEAN CORPUSCULAR HEMOGLOBIN 25.3 PG (27.0-31.0); MEAN CORPUSCULAR HGB CONC 31.6 g/dL (33.0-36.5); MEAN CORPUSCULAR VOLUME 80.1 FL (78-98); MEAN PLATELET VOLUME 8.7 FL (7.4-10.4); MONOCYTES # (AUTO) 0.7 X10'3 (0-0.9); MONOCYTES % (AUTO) 9.6 % (2-12); NEUTROPHILS # (AUTO) 5.5 X10'3 (1.8-7.7); NEUTROPHILS % (AUTO) 70.9 % (42-75); PLATELET COUNT 487 X10'3 (140-440); RED BLOOD COUNT 3.65 X10'6 (4.20-5.60); RED CELL DISTRIBUTION WIDTH 18.1 % (11.5-14.5); WHITE BLOOD COUNT 7.8 X10'3 (4.5-11.0)
[2024-04-26 08:52] LABS: ALANINE AMINOTRANSFERASE 14 U/L (12-78); ALBUMIN/GLOBULIN RATIO 0.4 (1.1-1.5); ALKALINE PHOSPHATASE 47 IU/L (46-116); ANION GAP 4 (8-16); ASPARTATE AMINO TRANSFERASE 27 U/L (10-37); BILIRUBIN,TOTAL 0.3 MG/DL (0.1-1.0); BLOOD UREA NITROGEN 47 MG/DL (7-18); BUN/CREATININE RATIO 29.9 (10.0-20.0); CHLORIDE 99 MMOL/L (99-107); CREATININE 1.57 MG/DL (0.40-0.90); GLUCOSE 141 MG/DL (70-104); POTASSIUM 3.9 MMOL/L (3.5-5.1); SODIUM 138 MMOL/L (135-145); TOTAL CARBON DIOXIDE 34.9 MMOL/L (24-32); TOTAL PROTEIN 6.9 G/DL (6.4-8.2); eCRCL 32 ML/MIN; eGFR 35 ML/MIN
[2024-04-26] MEDS: vancomycin/NS 1 GM ADD-VANTAGE 250 ML IV SCH (09:52)
[2024-04-26 10:00] VITALS: BP 125/46; PULSE 85; RESP 19; TEMP 97.6; O2SAT 99
[2024-04-26] MEDS ORDERED: LANTUS SQ (12:59)
[2024-04-26] MEDS ORDERED: LINE600T11 PO (12:59)
[2024-04-26] MEDS ORDERED: PANT40TA54 PO (12:59)
[2024-04-26] MEDS ORDERED: ASPI-1071 PO (12:59)
[2024-04-26] MEDS ORDERED: ATOR20TA66 PO (12:59)
[2024-04-26] MEDS ORDERED: FERR325T28 PO (16:07)
[2024-04-27] MEDS ORDERED: VANCOMYCIN LEVEL IV ONE (19:30)
== END 2024-04-26 15:10 | disposition home health service (06) | DRG 305 ==
LOC: ER 12:38 → ED HOLD 20:55 → EDBEDREQ 23:35 → ORTHO 4S 04-18 01:50
PROVIDERS: ADMIT Student in an Organized Health Care Education/Training Program; ATTEND Family Medicine
PROC: 0Y6N0ZF Detachment at Left Foot, Partial 5th Ray, Open Approach (ICD-10-PCS; 2024-04-23)
PROC: 0Y6N0ZD Detachment at Left Foot, Partial 4th Ray, Open Approach (ICD-10-PCS; principal; 2024-04-23 07:34)
DX: E11.52 Type 2 diabetes mellitus with diabetic peripheral angiopathy with gangrene (principal); I50.23 Acute on chronic systolic (congestive) heart failure; N17.9 Acute kidney failure, unspecified; B37.89 Other sites of candidiasis; E88.09 Other disorders of plasma-protein metabolism, not elsewhere classified; M86.8X7 Other osteomyelitis, ankle and foot; E87.3 Alkalosis; I27.20 Pulmonary hypertension, unspecified; D64.9 Anemia, unspecified; E11.69 Type 2 diabetes mellitus with other specified complication; L03.115 Cellulitis of right lower limb; L03.116 Cellulitis of left lower limb; E11.42 Type 2 diabetes mellitus with diabetic polyneuropathy; E87.6 Hypokalemia; G89.29 Other chronic pain; M54.9 Dorsalgia, unspecified; J44.9 Chronic obstructive pulmonary disease, unspecified; E66.01 Morbid (severe) obesity due to excess calories; Z79.4 Long term (current) use of insulin; Z68.42 Body mass index [BMI] 45.0-49.9, adult; Z79.899 Other long term (current) drug therapy; I25.2 Old myocardial infarction; Z80.3 Family history of malignant neoplasm of breast
CPT/HCPCS: 36415; 71045; 73630; 73720; 76770; 80048; 80053; 80061; 80202; 80305; 81001; 82570; 82728; 82948; 83036; 83540; 83550; 83605; 83615; 83735; 83880; 84133; 84155; 84165; 84300; 84439; 84443; 84484; 84540; 85007; 85008; 85025; 85610; 85651; 85730; 86038; 86060; 86160; 86256; 86703; 87040; 87070; 87075; 87077; 87081; 87186; 87207; 87340; 93005; 93306; 93925; 94760; 96374; 96375; 97116; 97162; 97164; 97530; 99291; A4615; A4618; A6196; A6213; A6222; A6223; A6260; A6446; A6449; A7000; A9575; G0378; J0696; J1120; J1450; J1644; J1650; J1815; J1940; J2250; J2270; J2405; J2543; J2704; J3010; J3370; J3372; J3490; J7030; J7120

== ENCOUNTER 2024-05-24 15:36 | Inpatient (IN) | payer MEDICAID ==
[~2024-05-24] VITALS: Ht 154.9 cm; Wt 104.5 kg
[~2024-05-24 15:36] MED LIST changes: +ASPI-1071 PO; +ATOR20TA66 PO; +FERR325T28 PO; -INSU100I31 SQ; +LANTUS SQ; +PANT40TA54 PO
[2024-05-24] MEDS: morphine 4 MG/ML inj SYRINge IV ONE (17:29)
[2024-05-24] MEDS: normal saline 1000ml 1,000 ML IV ONE (17:29)
[2024-05-24] MEDS: ondansetron/PF 4mg/2ml inj IV ONE (17:30)
[2024-05-24] MEDS: piperacillin/tazo 3.375gm/50ml 50 ML IV ONE ×2 (17:44)
[2024-05-24 17:50] LABS: BASOPHILS % (AUTO) 0.3 % (0-1); EOSINOPHILS # (AUTO) 0.2 X10'3 (0-0.9); EOSINOPHILS % (AUTO) 1.9 % (0-6); HEMOGLOBIN 9.3 g/dl (12.0-16.0); LYMPHOCYTES # (AUTO) 0.7 X10'3 (1.1-4.8); LYMPHOCYTES % (AUTO) 8.2 % (21-51); MEAN CORPUSCULAR HEMOGLOBIN 25.6 PG (27.0-31.0); MEAN CORPUSCULAR VOLUME 82.6 FL (78-98); MEAN PLATELET VOLUME 8.4 FL (7.4-10.4); MONOCYTES # (AUTO) 0.5 X10'3 (0-0.9); MONOCYTES % (AUTO) 5.4 % (2-12); NEUTROPHILS # (AUTO) 7.1 X10'3 (1.8-7.7); NEUTROPHILS % (AUTO) 84.2 % (42-75); PLATELET COUNT 351 X10'3 (140-440); RED BLOOD COUNT 3.63 X10'6 (4.20-5.60); RED CELL DISTRIBUTION WIDTH 19.5 % (11.5-14.5); WHITE BLOOD COUNT 8.4 X10'3 (4.5-11.0)
[2024-05-24 18:01] LABS: APTT 29 SECONDS (22-32); INR 1.3 INR; PROTHROMBIN TIME 12.9 SECONDS (9.0-12.0)
[2024-05-24 18:04] LABS: ANION GAP 8 (8-16); BILIRUBIN,TOTAL 0.7 MG/DL (0.1-1.0); BLOOD UREA NITROGEN 33 MG/DL (7-18); BUN/CREATININE RATIO 21.6 (10.0-20.0); C-REACTIVE PROTEIN 4.19 MG/DL (0.0-0.5); CALCIUM 8.5 MG/DL (8.5-10.1); CHLORIDE 103 MMOL/L (99-107); CREATININE 1.53 MG/DL (0.40-0.90); GLUCOSE 111 MG/DL (70-104); POTASSIUM 4.8 MMOL/L (3.5-5.1); SODIUM 136 MMOL/L (135-145); TOTAL CARBON DIOXIDE 25.4 MMOL/L (24-32); eCRCL 32 ML/MIN; eGFR 36 ML/MIN
[2024-05-24 18:05] LABS: ALANINE AMINOTRANSFERASE 16 U/L (12-78); ALBUMIN/GLOBULIN RATIO 0.6 (1.1-1.5); ALKALINE PHOSPHATASE 45 IU/L (46-116); ASPARTATE AMINO TRANSFERASE 22 U/L (10-37)
[2024-05-24] MEDS ORDERED: EMPA10TA PO (20:32)
[2024-05-24] MEDS ORDERED: METF-436 PO (20:32)
[2024-05-24] MEDS ORDERED: ATOM40CA7 PO (20:39)
[2024-05-24] MEDS ORDERED: PANT40TA54 PO (20:39)
[2024-05-24] MEDS ORDERED: SERT25TA PO (20:39)
[2024-05-24] MEDS ORDERED: ATOR20TA PO (20:39)
[2024-05-24] MEDS ORDERED: HYDR12.55 PO (20:39)
[2024-05-24] MEDS ORDERED: NITR0.4T51 SL (20:39)
[2024-05-24] MEDS ORDERED: FENO145T38 PO (20:39)
[2024-05-24] MEDS ORDERED: CARV-50 PO (20:39)
[2024-05-24] MEDS ORDERED: magnesium sulf-water 2g/50mL 50 ML IV PRN (20:50)
[2024-05-24] MEDS ORDERED: mag hydrox/Alum hydrox/simeth 30ml oral suspension PO PRN (20:50)
[2024-05-24] MEDS ORDERED: potassium Cl 40MEQ/1/2NS 520ml 520 ML IV PRN (20:50)
[2024-05-24] MEDS ORDERED: ondansetron/PF 4mg/2ml inj IV PRN (20:50)
[2024-05-24] MEDS ORDERED: magnesium Cl slow-release 64mg tablet PO PRN (20:50)
[2024-05-24] MEDS ORDERED: magnesium sulf-water 4G/100mL 100 ML IV PRN (20:50)
[2024-05-24] MEDS ORDERED: potassium Cl 20 mEq SR tablet PO PRN ×2 (20:50)
[2024-05-24] MEDS ORDERED: magnesium hydroxide 30ml (MOM) UD suspension PO PRN (20:50)
[2024-05-24] MEDS ORDERED: DEXTROSE 15 GM of carb/4 tabs (each vial/BOTTLE has 4 tablets) PO PRN ×2 (21:10)
[2024-05-24] MEDS ORDERED: dextrose 50%-water 50ml dispensing syringe IV PRN ×2 (21:10)
[2024-05-24] MEDS ORDERED: glucagon, human recombinant 1mg kit SUBCUT PRN (21:10)
[2024-05-24] MEDS: VANCOMYCIN/H2O 1.5g/300mL PB 300 ML IV ONE (22:11)
[2024-05-24 23:05] VITALS: BP 107/63; PULSE 75; RESP 24; TEMP 97.1; O2SAT 92
[2024-05-24 23:15] VITALS: RESP 24; O2SAT 92
[2024-05-25] VITALS (10 sets, daily range): BP systolic 92–145; BP diastolic 37–99; PULSE 70–85; RESP 12–24; TEMP 97–98.4; O2SAT 69–100
[2024-05-25] MEDS: piperacillin/tazo 3.375gm/50ml 50 ML IV SCH (00:59)
[2024-05-25] MEDS: HYDROcodone/acetaminophen 10/325mg tab PO PRN (02:01)
[2024-05-25] MEDS ORDERED: albuterol 2.5 MG/3 ML nebule NEB PRN (05:00)
[2024-05-25] MEDS: INSULIN LISPRO 100 UNIT/ML INSULN.PEN MULTI-DOSE SQ SCH (07:00)
[2024-05-25] MEDS: carVEDilol 12.5mg tablet PO SCH (07:48)
[2024-05-25] MEDS: gabapentin 300mg capsule PO SCH (07:48)
[2024-05-25] MEDS: fenofibrate 145mg tablet PO SCH (07:48)
[2024-05-25] MEDS: sertraline 50mg tablet PO SCH (07:49)
[2024-05-25] MEDS: HYDROchlorothiazide 12.5mg capsule PO SCH (07:49)
[2024-05-25] MEDS: lisinopril 10 MG tablet PO SCH (07:49)
[2024-05-25] MEDS: pantoprazole 40mg Tablet.DR PO SCH (07:49)
[2024-05-25] MEDS: heparin, porcine 5000 units/ml vial SQ SCH (07:52)
[2024-05-25] MEDS: nystatin 15 GM powder TP SCH (07:58)
[2024-05-25] MEDS: atomoxetine 40 MG capsule PO SCH (08:00)
[2024-05-25] MEDS: K and/or MAG REPLACEMENT MC SCH (08:00)
[2024-05-25 10:51] LABS: BASOPHILS % (AUTO) 0.3 % (0-1); EOSINOPHILS # (AUTO) 0.2 X10'3 (0-0.9); HEMATOCRIT 27.8 % (35.0-45.0); HEMOGLOBIN 8.6 g/dl (12.0-16.0); LYMPHOCYTES # (AUTO) 0.6 X10'3 (1.1-4.8); MEAN CORPUSCULAR HEMOGLOBIN 25.9 PG (27.0-31.0); MEAN CORPUSCULAR HGB CONC 30.8 g/dL (33.0-36.5); MEAN PLATELET VOLUME 8.6 FL (7.4-10.4); MONOCYTES # (AUTO) 0.7 X10'3 (0-0.9); MONOCYTES % (AUTO) 8.6 % (2-12); NEUTROPHILS # (AUTO) 6.5 X10'3 (1.8-7.7); NEUTROPHILS % (AUTO) 82.1 % (42-75); PLATELET COUNT 327 X10'3 (140-440); RED BLOOD COUNT 3.31 X10'6 (4.20-5.60); RED CELL DISTRIBUTION WIDTH 19.6 % (11.5-14.5); WHITE BLOOD COUNT 7.9 X10'3 (4.5-11.0)
[2024-05-25 11:05] LABS: ALANINE AMINOTRANSFERASE 16 U/L (12-78); ALBUMIN 2.7 G/DL (3.4-5.0); ALBUMIN/GLOBULIN RATIO 0.6 (1.1-1.5); ALKALINE PHOSPHATASE 36 IU/L (46-116); ANION GAP 8 (8-16); ASPARTATE AMINO TRANSFERASE 17 U/L (10-37); BILIRUBIN,TOTAL 0.6 MG/DL (0.1-1.0); BLOOD UREA NITROGEN 42 MG/DL (7-18); BUN/CREATININE RATIO 25.9 (10.0-20.0); CALCIUM 8.3 MG/DL (8.5-10.1); CHLORIDE 106 MMOL/L (99-107); CREATININE 1.62 MG/DL (0.40-0.90); GLUCOSE 101 MG/DL (70-104); POTASSIUM 5.6 MMOL/L (3.5-5.1); SODIUM 139 MMOL/L (135-145); TOTAL CARBON DIOXIDE 25.4 MMOL/L (24-32); TOTAL PROTEIN 6.9 G/DL (6.4-8.2); eCRCL 31 ML/MIN; eGFR 33 ML/MIN
[2024-05-25] MEDS: VANCOMYCIN 1GM 200ML H20 (PEG) 200 ML IV SCH (11:10)
[2024-05-25] MEDS ORDERED: enoxaparin 40mg/0.4ml syringe SQ SCH (20:00)
[2024-05-25] MEDS: atorvastatin 20mg tablet PO SCH (20:16)
[2024-05-25] MEDS: insulin glargine (Lantus) pen - multi-dose SQ SCH (21:00)
[2024-05-26] VITALS (7 sets, daily range): BP systolic 97–110; BP diastolic 48–60; PULSE 72–85; RESP 12–18; TEMP 97.2–98.6; O2SAT 92–100
[2024-05-26] MEDS: insulin regular, human 10 units/0.1 ml syringe IV ONE (07:32)
[2024-05-26] MEDS: dextrose 50%-water 50ml dispensing syringe IV ONE (07:39)
[2024-05-26 11:18] LABS: BASOPHILS % (AUTO) 0.2 % (0-1); EOSINOPHILS # (AUTO) 0.1 X10'3 (0-0.9); EOSINOPHILS % (AUTO) 1.6 % (0-6); HEMATOCRIT 27.6 % (35.0-45.0); HEMOGLOBIN 8.7 g/dl (12.0-16.0); LYMPHOCYTES # (AUTO) 0.6 X10'3 (1.1-4.8); LYMPHOCYTES % (AUTO) 6.2 % (21-51); MEAN CORPUSCULAR HEMOGLOBIN 26.1 PG (27.0-31.0); MEAN CORPUSCULAR HGB CONC 31.4 g/dL (33.0-36.5); MEAN CORPUSCULAR VOLUME 83.1 FL (78-98); MEAN PLATELET VOLUME 9.1 FL (7.4-10.4); MONOCYTES # (AUTO) 0.8 X10'3 (0-0.9); MONOCYTES % (AUTO) 8.8 % (2-12); NEUTROPHILS # (AUTO) 7.8 X10'3 (1.8-7.7); NEUTROPHILS % (AUTO) 83.2 % (42-75); PLATELET COUNT 335 X10'3 (140-440); RED BLOOD COUNT 3.33 X10'6 (4.20-5.60); RED CELL DISTRIBUTION WIDTH 19.8 % (11.5-14.5); WHITE BLOOD COUNT 9.4 X10'3 (4.5-11.0)
[2024-05-26 11:41] LABS: ALANINE AMINOTRANSFERASE 17 U/L (12-78); ALBUMIN 2.6 G/DL (3.4-5.0); ALBUMIN/GLOBULIN RATIO 0.6 (1.1-1.5); ALKALINE PHOSPHATASE 38 IU/L (46-116); ANION GAP 8 (8-16); ASPARTATE AMINO TRANSFERASE 23 U/L (10-37); BILIRUBIN,TOTAL 0.7 MG/DL (0.1-1.0); BLOOD UREA NITROGEN 52 MG/DL (7-18); BUN/CREATININE RATIO 25.7 (10.0-20.0); CALCIUM 8.2 MG/DL (8.5-10.1); CHLORIDE 104 MMOL/L (99-107); CREATININE 2.02 MG/DL (0.40-0.90); GLUCOSE 162 MG/DL (70-104); POTASSIUM 5.2 MMOL/L (3.5-5.1); SODIUM 136 MMOL/L (135-145); TOTAL PROTEIN 7.1 G/DL (6.4-8.2); eCRCL 25 ML/MIN; eGFR 26 ML/MIN
[2024-05-26 11:52] LABS: ANISOCYTOSIS 2+; PLATELET ESTIMATE NORMAL
[2024-05-26 11:53] LABS: HYPOCHROMASIA 1+; POLYCHROMASIA FEW
[2024-05-26] MEDS: normal saline 1000ml 1,000 ML IV SCH (17:32)
[2024-05-26] MEDS: VANCOMYCIN LEVEL IV ONE (21:44)
[2024-05-26] MEDS: VANCOMYCIN 500MG/WATER FOR INJ (PEG) PREMIX 100 ML IV SCH (22:47)
[2024-05-27] MEDS: metroNIDAZOLE-Flagyl 500mg/NS 100 ML IV SCH (00:08)
[2024-05-27 06:00] VITALS: BP 102/52; PULSE 79; RESP 14; TEMP 97.8; O2SAT 90
[2024-05-27] MEDS: CefTRIAXone 2gm/D5W 50ml BAG 50 ML IV SCH (07:42)
[2024-05-27 07:52] LABS: ALBUMIN 2.3 G/DL (3.4-5.0); ANION GAP 10 (8-16); BLOOD UREA NITROGEN 53 MG/DL (7-18); BUN/CREATININE RATIO 27.2 (10.0-20.0); CHLORIDE 101 MMOL/L (99-107); CREATININE 1.95 MG/DL (0.40-0.90); GLUCOSE 203 MG/DL (70-104); SODIUM 133 MMOL/L (135-145); eCRCL 25 ML/MIN; eGFR 27 ML/MIN
[2024-05-27] MEDS: LIDOcaine 2% jelly 6ml syringe ***for topical use only MM ONE (09:45)
[2024-05-27 12:02] LABS: BASOPHILS % (AUTO) 0.3 % (0-1); EOSINOPHILS # (AUTO) 0.1 X10'3 (0-0.9); EOSINOPHILS % (AUTO) 1.6 % (0-6); HEMATOCRIT 28.3 % (35.0-45.0); HEMOGLOBIN 8.7 g/dl (12.0-16.0); LYMPHOCYTES # (AUTO) 0.6 X10'3 (1.1-4.8); LYMPHOCYTES % (AUTO) 6.6 % (21-51); MEAN CORPUSCULAR HEMOGLOBIN 25.8 PG (27.0-31.0); MEAN CORPUSCULAR HGB CONC 30.9 g/dL (33.0-36.5); MEAN CORPUSCULAR VOLUME 83.6 FL (78-98); MONOCYTES # (AUTO) 0.7 X10'3 (0-0.9); NEUTROPHILS # (AUTO) 7.7 X10'3 (1.8-7.7); NEUTROPHILS % (AUTO) 83.5 % (42-75); PLATELET COUNT 375 X10'3 (140-440); RED BLOOD COUNT 3.38 X10'6 (4.20-5.60); RED CELL DISTRIBUTION WIDTH 19.1 % (11.5-14.5); WHITE BLOOD COUNT 9.3 X10'3 (4.5-11.0)
[2024-05-27 12:15] LABS: ALANINE AMINOTRANSFERASE 18 U/L (12-78); ALBUMIN 2.4 G/DL (3.4-5.0); ALBUMIN/GLOBULIN RATIO 0.5 (1.1-1.5); ALKALINE PHOSPHATASE 35 IU/L (46-116); ANION GAP 7 (8-16); ASPARTATE AMINO TRANSFERASE 20 U/L (10-37); BILIRUBIN,TOTAL 0.5 MG/DL (0.1-1.0); BLOOD UREA NITROGEN 54 MG/DL (7-18); BUN/CREATININE RATIO 29.2 (10.0-20.0); CALCIUM 8.1 MG/DL (8.5-10.1); CHLORIDE 103 MMOL/L (99-107); CREATININE 1.85 MG/DL (0.40-0.90); GLUCOSE 201 MG/DL (70-104); SODIUM 134 MMOL/L (135-145); TOTAL CARBON DIOXIDE 23.8 MMOL/L (24-32); eCRCL 27 ML/MIN; eGFR 29 ML/MIN
[2024-05-27 17:02] VITALS: PULSE 80; RESP 20; O2SAT 96
[2024-05-27 18:00] VITALS: BP 134/58; PULSE 89; RESP 20; TEMP 98.4; O2SAT 95
[2024-05-27 20:00] VITALS: RESP 20; O2SAT 97
[2024-05-27 20:53] VITALS: PULSE 96; RESP 20; O2SAT 95
[2024-05-27 22:00] VITALS: BP 122/64; PULSE 97; RESP 16; TEMP 98.8; O2SAT 94
[2024-05-28] VITALS (20 sets, daily range): BP systolic 84–129; BP diastolic 45–75; PULSE 53–88; RESP 12–19; TEMP 97.6–98.8; O2SAT 93–100
[2024-05-28] MEDS: VANCOMYCIN LEVEL IV ONE (09:30)
[2024-05-28 11:24] LABS: BASOPHILS % (AUTO) 0.2 % (0-1); EOSINOPHILS # (AUTO) 0.2 X10'3 (0-0.9); EOSINOPHILS % (AUTO) 2.1 % (0-6); HEMATOCRIT 26.3 % (35.0-45.0); HEMOGLOBIN 8.2 g/dl (12.0-16.0); LYMPHOCYTES # (AUTO) 0.6 X10'3 (1.1-4.8); LYMPHOCYTES % (AUTO) 7.9 % (21-51); MEAN CORPUSCULAR HEMOGLOBIN 26.1 PG (27.0-31.0); MEAN CORPUSCULAR HGB CONC 31.3 g/dL (33.0-36.5); MEAN CORPUSCULAR VOLUME 83.4 FL (78-98); MEAN PLATELET VOLUME 8.7 FL (7.4-10.4); MONOCYTES # (AUTO) 0.6 X10'3 (0-0.9); MONOCYTES % (AUTO) 7.9 % (2-12); NEUTROPHILS # (AUTO) 6.4 X10'3 (1.8-7.7); NEUTROPHILS % (AUTO) 81.9 % (42-75); PLATELET COUNT 357 X10'3 (140-440); RED BLOOD COUNT 3.15 X10'6 (4.20-5.60); RED CELL DISTRIBUTION WIDTH 19.5 % (11.5-14.5); WHITE BLOOD COUNT 7.9 X10'3 (4.5-11.0)
[2024-05-28 11:44] LABS: ALBUMIN 2.3 G/DL (3.4-5.0); ANION GAP 5 (8-16); BILIRUBIN,TOTAL 0.5 MG/DL (0.1-1.0); BLOOD UREA NITROGEN 45 MG/DL (7-18); CALCIUM 8.2 MG/DL (8.5-10.1); CHLORIDE 104 MMOL/L (99-107); CREATININE 1.55 MG/DL (0.40-0.90); GLUCOSE 138 MG/DL (70-104); SODIUM 135 MMOL/L (135-145); TOTAL CARBON DIOXIDE 25.8 MMOL/L (24-32); TOTAL PROTEIN 6.8 G/DL (6.4-8.2); eCRCL 32 ML/MIN; eGFR 35 ML/MIN
[2024-05-28 11:45] LABS: ALANINE AMINOTRANSFERASE 21 U/L (12-78); ALBUMIN/GLOBULIN RATIO 0.5 (1.1-1.5); ALKALINE PHOSPHATASE 35 IU/L (46-116); ASPARTATE AMINO TRANSFERASE 36 U/L (10-37)
[2024-05-28] MEDS: ringers solution, lacted 1,000 ML IV SCH (16:05)
[2024-05-28] MEDS ORDERED: ondansetron/PF 4mg/2ml inj IV PRN (16:05)
[2024-05-28] MEDS ORDERED: morphine 2 MG/ML inj. syringe IV PRN (16:05)
[2024-05-28] MEDS ORDERED: proCHLORperazine 10 MG/2 ml inj IV PRN (16:05)
[2024-05-28] MEDS ORDERED: HYDROmorphone/PF 0.2 MG/ML SYRINGE IV PRN ×2 (16:05)
[2024-05-28] MEDS ORDERED: acetaminophen 1,000mg/100ml IV 100 ML IV PRN (16:05)
[2024-05-28] MEDS ORDERED: fentaNYL/PF 50MCG/1 ML 2ML syringe ONE (16:41)
[2024-05-28] MEDS ORDERED: midazolam 1 mg/ML 2ml injection ONE (16:41)
[2024-05-28] MEDS ORDERED: sevoflurane 250ml liquid IH ONE (16:51)
[2024-05-28] MEDS ORDERED: ROPIVAcaine 0.5% (5mg/ml) 30ml vial ONE (17:23)
[2024-05-28] MEDS ORDERED: LIDOcaine 2% (20mg/ml) 5ml vial ONE (17:23)
[2024-05-28] MEDS ORDERED: dexamethasone sod phosphate 4mg/ml inj. ONE (17:23)
[2024-05-28] MEDS ORDERED: propofol inj 20 ML IV ONE (17:23)
[2024-05-28] MEDS ORDERED: 0.9 % SODIUM CHLORIDE 10 ML VIAL ONE (17:25)
[2024-05-28] MEDS ORDERED: ePHEDrine 50MG/ML INJ. ONE (17:25)
[2024-05-28] MEDS ORDERED: ondansetron/PF 4mg/2ml inj ONE (17:25)
[2024-05-28] MEDS: morphine 4 MG/ML inj SYRINge IV PRN (19:12)
[2024-05-29 06:00] VITALS: BP 103/55; PULSE 68; RESP 18; TEMP 98.5; O2SAT 97
[2024-05-29 08:00] VITALS: RESP 18; O2SAT 97
[2024-05-29 10:00] VITALS: BP 110/62; PULSE 74; RESP 18; TEMP 98.2; O2SAT 97
[2024-05-29 11:09] LABS: BASOPHILS % (AUTO) 0.1 % (0-1); EOSINOPHILS % (AUTO) 0 % (0-6); HEMATOCRIT 25.8 % (35.0-45.0); HEMOGLOBIN 8.2 g/dl (12.0-16.0); LYMPHOCYTES # (AUTO) 0.4 X10'3 (1.1-4.8); LYMPHOCYTES % (AUTO) 3.7 % (21-51); MEAN CORPUSCULAR HEMOGLOBIN 26.8 PG (27.0-31.0); MEAN CORPUSCULAR HGB CONC 31.6 g/dL (33.0-36.5); MEAN CORPUSCULAR VOLUME 84.7 FL (78-98); MONOCYTES # (AUTO) 0.6 X10'3 (0-0.9); MONOCYTES % (AUTO) 5.3 % (2-12); NEUTROPHILS # (AUTO) 9.7 X10'3 (1.8-7.7); NEUTROPHILS % (AUTO) 90.9 % (42-75); PLATELET COUNT 355 X10'3 (140-440); RED BLOOD COUNT 3.04 X10'6 (4.20-5.60); RED CELL DISTRIBUTION WIDTH 19.8 % (11.5-14.5); WHITE BLOOD COUNT 10.6 X10'3 (4.5-11.0)
[2024-05-29 11:26] LABS: PLATELET ESTIMATE NORMAL
[2024-05-29 11:27] LABS: ANISOCYTOSIS 2+; HYPOCHROMASIA 1+; POLYCHROMASIA 1+
[2024-05-29 11:28] LABS: ELLIPTOCYTES FEW; TEAR DROP CELLS FEW
[2024-05-29 11:29] LABS: ALANINE AMINOTRANSFERASE 21 U/L (12-78); ALBUMIN 2.2 G/DL (3.4-5.0); ALBUMIN/GLOBULIN RATIO 0.5 (1.1-1.5); ALKALINE PHOSPHATASE 36 IU/L (46-116); ANION GAP 9 (8-16); ASPARTATE AMINO TRANSFERASE 25 U/L (10-37); BILIRUBIN,TOTAL 0.5 MG/DL (0.1-1.0); BLOOD UREA NITROGEN 44 MG/DL (7-18); BUN/CREATININE RATIO 29.5 (10.0-20.0); CALCIUM 7.9 MG/DL (8.5-10.1); CHLORIDE 104 MMOL/L (99-107); CREATININE 1.49 MG/DL (0.40-0.90); GLUCOSE 312 MG/DL (70-104); POTASSIUM 5.3 MMOL/L (3.5-5.1); SODIUM 135 MMOL/L (135-145); TOTAL CARBON DIOXIDE 22.4 MMOL/L (24-32); TOTAL PROTEIN 6.4 G/DL (6.4-8.2); eCRCL 33 ML/MIN; eGFR 37 ML/MIN
[2024-05-29 20:00] VITALS: RESP 20; O2SAT 97
[2024-05-29 20:23] VITALS: PULSE 84; RESP 18; O2SAT 93
[2024-05-29 22:00] VITALS: BP 105/45; PULSE 60; RESP 16; TEMP 98; O2SAT 98
[2024-05-29] MEDS: VANCOMYCIN/WATER FOR INJ (PEG) 750MG/150 ML IVPB IV SCH (22:02)
[2024-05-30 06:00] VITALS: BP 98/69; PULSE 87; RESP 16; TEMP 98.6; O2SAT 99
[2024-05-30 06:31] LABS: BASOPHILS % (AUTO) 0.2 % (0-1); EOSINOPHILS # (AUTO) 0.1 X10'3 (0-0.9); HEMATOCRIT 26.1 % (35.0-45.0); LYMPHOCYTES # (AUTO) 0.7 X10'3 (1.1-4.8); LYMPHOCYTES % (AUTO) 8.8 % (21-51); MEAN CORPUSCULAR HEMOGLOBIN 25.9 PG (27.0-31.0); MEAN CORPUSCULAR HGB CONC 30.8 g/dL (33.0-36.5); MEAN CORPUSCULAR VOLUME 84.2 FL (78-98); MEAN PLATELET VOLUME 9.2 FL (7.4-10.4); MONOCYTES # (AUTO) 0.7 X10'3 (0-0.9); MONOCYTES % (AUTO) 8.9 % (2-12); NEUTROPHILS # (AUTO) 6.4 X10'3 (1.8-7.7); NEUTROPHILS % (AUTO) 81.1 % (42-75); PLATELET COUNT 380 X10'3 (140-440); RED CELL DISTRIBUTION WIDTH 19.7 % (11.5-14.5); WHITE BLOOD COUNT 7.9 X10'3 (4.5-11.0)
[2024-05-30 06:58] LABS: ALANINE AMINOTRANSFERASE 19 U/L (12-78); ALBUMIN 2.3 G/DL (3.4-5.0); ALBUMIN/GLOBULIN RATIO 0.5 (1.1-1.5); ALKALINE PHOSPHATASE 38 IU/L (46-116); ANION GAP 7 (8-16); ASPARTATE AMINO TRANSFERASE 13 U/L (10-37); BILIRUBIN,TOTAL 0.4 MG/DL (0.1-1.0); BLOOD UREA NITROGEN 51 MG/DL (7-18); BUN/CREATININE RATIO 30.4 (10.0-20.0); CALCIUM 8.1 MG/DL (8.5-10.1); CHLORIDE 104 MMOL/L (99-107); CREATININE 1.68 MG/DL (0.40-0.90); GLUCOSE 296 MG/DL (70-104); POTASSIUM 5.3 MMOL/L (3.5-5.1); SODIUM 135 MMOL/L (135-145); TOTAL CARBON DIOXIDE 24.2 MMOL/L (24-32); TOTAL PROTEIN 6.5 G/DL (6.4-8.2); eCRCL 30 ML/MIN; eGFR 32 ML/MIN
[2024-05-30 07:17] LABS: ANISOCYTOSIS 2+; MICROCYTOSIS 1+; PLATELET ESTIMATE NORMAL; POIKILOCYTOSIS FEW; TARGET CELLS FEW
[2024-05-30 10:00] VITALS: BP 103/45; PULSE 73; RESP 16; TEMP 97.6; O2SAT 99
[2024-05-30 18:00] VITALS: BP 103/51; PULSE 72; RESP 16; TEMP 98.1; O2SAT 98
[2024-05-30 20:00] VITALS: RESP 16; O2SAT 98
[2024-05-30 22:00] VITALS: BP 130/67; PULSE 88; RESP 18; TEMP 98.2; O2SAT 97
[2024-05-31] VITALS (7 sets, daily range): BP systolic 110–154; BP diastolic 45–86; PULSE 80–99; RESP 16–20; TEMP 97.7–98.3; O2SAT 91–98
[2024-05-31] MEDS: acetaminophen 325mg tablet PO PRN (05:47)
[2024-05-31 06:21] LABS: BASOPHILS % (AUTO) 0.2 % (0-1); EOSINOPHILS # (AUTO) 0.2 X10'3 (0-0.9); EOSINOPHILS % (AUTO) 2.8 % (0-6); HEMATOCRIT 26.4 % (35.0-45.0); HEMOGLOBIN 8.2 g/dl (12.0-16.0); LYMPHOCYTES # (AUTO) 0.6 X10'3 (1.1-4.8); MEAN CORPUSCULAR HEMOGLOBIN 25.8 PG (27.0-31.0); MEAN CORPUSCULAR VOLUME 83.3 FL (78-98); MEAN PLATELET VOLUME 9.3 FL (7.4-10.4); MONOCYTES # (AUTO) 0.7 X10'3 (0-0.9); MONOCYTES % (AUTO) 8.2 % (2-12); NEUTROPHILS # (AUTO) 6.5 X10'3 (1.8-7.7); NEUTROPHILS % (AUTO) 80.8 % (42-75); PLATELET COUNT 396 X10'3 (140-440); RED BLOOD COUNT 3.17 X10'6 (4.20-5.60); RED CELL DISTRIBUTION WIDTH 19.3 % (11.5-14.5)
[2024-05-31 06:50] LABS: ALANINE AMINOTRANSFERASE 15 U/L (12-78); ALBUMIN 2.2 G/DL (3.4-5.0); ALBUMIN/GLOBULIN RATIO 0.5 (1.1-1.5); ALKALINE PHOSPHATASE 35 IU/L (46-116); ANION GAP 7 (8-16); ASPARTATE AMINO TRANSFERASE 15 U/L (10-37); BILIRUBIN,TOTAL 0.5 MG/DL (0.1-1.0); BLOOD UREA NITROGEN 46 MG/DL (7-18); BUN/CREATININE RATIO 33.6 (10.0-20.0); CALCIUM 8.1 MG/DL (8.5-10.1); CHLORIDE 104 MMOL/L (99-107); CREATININE 1.37 MG/DL (0.40-0.90); GLUCOSE 251 MG/DL (70-104); POTASSIUM 4.7 MMOL/L (3.5-5.1); SODIUM 135 MMOL/L (135-145); TOTAL CARBON DIOXIDE 24.4 MMOL/L (24-32); TOTAL PROTEIN 6.3 G/DL (6.4-8.2); eCRCL 36 ML/MIN; eGFR 40 ML/MIN
[2024-05-31] MEDS: levoFLOXACIN-Levaquin 500mg/D5 100 ML IV SCH (16:57)
[2024-05-31] MEDS: HYDROcodone/acetaminophen 5mg/325mg tablet PO PRN (21:41)
[2024-06-01] VITALS (9 sets, daily range): BP systolic 126–158; BP diastolic 66–83; PULSE 68–101; RESP 14–20; TEMP 97.6–98.6; O2SAT 92–98
[2024-06-01 05:57] LABS: BASOPHILS % (AUTO) 0.4 % (0-1); EOSINOPHILS # (AUTO) 0.1 X10'3 (0-0.9); EOSINOPHILS % (AUTO) 1.4 % (0-6); HEMATOCRIT 28.3 % (35.0-45.0); HEMOGLOBIN 8.8 g/dl (12.0-16.0); LYMPHOCYTES # (AUTO) 0.8 X10'3 (1.1-4.8); MEAN CORPUSCULAR HEMOGLOBIN 25.6 PG (27.0-31.0); MEAN CORPUSCULAR HGB CONC 30.9 g/dL (33.0-36.5); MEAN CORPUSCULAR VOLUME 82.8 FL (78-98); MEAN PLATELET VOLUME 8.9 FL (7.4-10.4); MONOCYTES # (AUTO) 0.7 X10'3 (0-0.9); MONOCYTES % (AUTO) 7.5 % (2-12); NEUTROPHILS # (AUTO) 8.2 X10'3 (1.8-7.7); NEUTROPHILS % (AUTO) 82.7 % (42-75); PLATELET COUNT 425 X10'3 (140-440); RED BLOOD COUNT 3.42 X10'6 (4.20-5.60); RED CELL DISTRIBUTION WIDTH 19.3 % (11.5-14.5); WHITE BLOOD COUNT 9.9 X10'3 (4.5-11.0)
[2024-06-01 06:33] LABS: ALANINE AMINOTRANSFERASE 14 U/L (12-78); ALBUMIN 2.4 G/DL (3.4-5.0); ALBUMIN/GLOBULIN RATIO 0.5 (1.1-1.5); ALKALINE PHOSPHATASE 42 IU/L (46-116); ANION GAP 8 (8-16); ASPARTATE AMINO TRANSFERASE 20 U/L (10-37); BILIRUBIN,TOTAL 0.7 MG/DL (0.1-1.0); BLOOD UREA NITROGEN 31 MG/DL (7-18); BUN/CREATININE RATIO 28.7 (10.0-20.0); CALCIUM 8.3 MG/DL (8.5-10.1); CHLORIDE 103 MMOL/L (99-107); CREATININE 1.08 MG/DL (0.40-0.90); GLUCOSE 243 MG/DL (70-104); POTASSIUM 4.9 MMOL/L (3.5-5.1); SODIUM 135 MMOL/L (135-145); TOTAL CARBON DIOXIDE 23.7 MMOL/L (24-32); TOTAL PROTEIN 7.2 G/DL (6.4-8.2); eCRCL 46 ML/MIN; eGFR 53 ML/MIN
[2024-06-01 11:34] LABS: PRO BRAIN NATRIURETIC PEPTIDE 9638 PG/ML (0-125)
[2024-06-01] MEDS: furosemide 20 MG/2 ML vial IV SCH (12:46)
[2024-06-01] MEDS: albuterol 2.5 MG/3 ML nebule NEB SCH (16:31)
[2024-06-01] MEDS ORDERED: furosemide 20 MG/2 ML vial IV SCH (20:00)
[2024-06-01] MEDS ORDERED: VANCOMYCIN LEVEL IV ONE (21:30)
[2024-06-02] VITALS (10 sets, daily range): BP systolic 156–166; BP diastolic 84–99; PULSE 89–119; RESP 16–24; TEMP 97.6–98; O2SAT 94–97
[2024-06-02 06:21] LABS: ALANINE AMINOTRANSFERASE 13 U/L (12-78); ALBUMIN 2.3 G/DL (3.4-5.0); ALBUMIN/GLOBULIN RATIO 0.5 (1.1-1.5); ALKALINE PHOSPHATASE 40 IU/L (46-116); ANION GAP 2 (8-16); ASPARTATE AMINO TRANSFERASE 18 U/L (10-37); BILIRUBIN,TOTAL 0.6 MG/DL (0.1-1.0); BLOOD UREA NITROGEN 24 MG/DL (7-18); BUN/CREATININE RATIO 23.8 (10.0-20.0); CALCIUM 8.7 MG/DL (8.5-10.1); CHLORIDE 104 MMOL/L (99-107); CREATININE 1.01 MG/DL (0.40-0.90); GLUCOSE 234 MG/DL (70-104); POTASSIUM 4.3 MMOL/L (3.5-5.1); SODIUM 137 MMOL/L (135-145); TOTAL CARBON DIOXIDE 30.6 MMOL/L (24-32); TOTAL PROTEIN 6.9 G/DL (6.4-8.2); eCRCL 49 ML/MIN; eGFR 58 ML/MIN
[2024-06-02 06:23] LABS: BASOPHILS % (AUTO) 0.3 % (0-1); EOSINOPHILS # (AUTO) 0.1 X10'3 (0-0.9); EOSINOPHILS % (AUTO) 0.7 % (0-6); HEMATOCRIT 27.9 % (35.0-45.0); HEMOGLOBIN 8.8 g/dl (12.0-16.0); LYMPHOCYTES # (AUTO) 0.6 X10'3 (1.1-4.8); LYMPHOCYTES % (AUTO) 6.7 % (21-51); MEAN CORPUSCULAR HEMOGLOBIN 25.8 PG (27.0-31.0); MEAN CORPUSCULAR HGB CONC 31.6 g/dL (33.0-36.5); MEAN CORPUSCULAR VOLUME 81.6 FL (78-98); MEAN PLATELET VOLUME 8.8 FL (7.4-10.4); MONOCYTES # (AUTO) 0.7 X10'3 (0-0.9); MONOCYTES % (AUTO) 8.1 % (2-12); NEUTROPHILS # (AUTO) 7.7 X10'3 (1.8-7.7); NEUTROPHILS % (AUTO) 84.2 % (42-75); PLATELET COUNT 449 X10'3 (140-440); RED BLOOD COUNT 3.42 X10'6 (4.20-5.60); RED CELL DISTRIBUTION WIDTH 19.1 % (11.5-14.5); WHITE BLOOD COUNT 9.2 X10'3 (4.5-11.0)
[2024-06-02] MEDS: levoFLOXACIN-Levaquin 250mg/D5 50 ML IV SCH (07:48)
[2024-06-02] MEDS: EMPAGLIFLOZIN 10 MG TABLET PO SCH (07:49)
[2024-06-03] VITALS (11 sets, daily range): BP systolic 107–151; BP diastolic 54–97; PULSE 63–95; RESP 14–20; TEMP 97.5–97.6; O2SAT 92–99
[2024-06-03 06:16] LABS: BASOPHILS % (AUTO) 0.1 % (0-1); EOSINOPHILS % (AUTO) 0.5 % (0-6); HEMATOCRIT 26.6 % (35.0-45.0); HEMOGLOBIN 8.2 g/dl (12.0-16.0); LYMPHOCYTES # (AUTO) 0.6 X10'3 (1.1-4.8); LYMPHOCYTES % (AUTO) 7.2 % (21-51); MEAN CORPUSCULAR HEMOGLOBIN 25.4 PG (27.0-31.0); MEAN CORPUSCULAR HGB CONC 30.8 g/dL (33.0-36.5); MEAN CORPUSCULAR VOLUME 82.6 FL (78-98); MONOCYTES # (AUTO) 0.6 X10'3 (0-0.9); MONOCYTES % (AUTO) 7.2 % (2-12); NEUTROPHILS # (AUTO) 6.6 X10'3 (1.8-7.7); PLATELET COUNT 401 X10'3 (140-440); RED BLOOD COUNT 3.22 X10'6 (4.20-5.60); RED CELL DISTRIBUTION WIDTH 19.7 % (11.5-14.5); WHITE BLOOD COUNT 7.7 X10'3 (4.5-11.0)
[2024-06-03 06:46] LABS: ALANINE AMINOTRANSFERASE 11 U/L (12-78); ALBUMIN 2.1 G/DL (3.4-5.0); ALBUMIN/GLOBULIN RATIO 0.5 (1.1-1.5); ALKALINE PHOSPHATASE 37 IU/L (46-116); ANION GAP 5 (8-16); ASPARTATE AMINO TRANSFERASE 18 U/L (10-37); BILIRUBIN,TOTAL 0.7 MG/DL (0.1-1.0); BLOOD UREA NITROGEN 24 MG/DL (7-18); BUN/CREATININE RATIO 25.8 (10.0-20.0); CHLORIDE 104 MMOL/L (99-107); CREATININE 0.93 MG/DL (0.40-0.90); GLUCOSE 233 MG/DL (70-104); POTASSIUM 4.2 MMOL/L (3.5-5.1); SODIUM 139 MMOL/L (135-145); TOTAL CARBON DIOXIDE 29.8 MMOL/L (24-32); TOTAL PROTEIN 6.5 G/DL (6.4-8.2); eCRCL 53 ML/MIN; eGFR 63 ML/MIN
[2024-06-04] VITALS (13 sets, daily range): BP systolic 143–152; BP diastolic 56–87; PULSE 75–98; RESP 14–20; TEMP 97.1–98.4; O2SAT 92–98
[2024-06-05] VITALS (13 sets, daily range): BP systolic 132–153; BP diastolic 60–85; PULSE 72–100; RESP 14–20; TEMP 97.8–98.5; O2SAT 93–98
[2024-06-05] MEDS: levoFLOXACIN 250mg tablet PO SCH (11:36)
[2024-06-06 03:34] VITALS: PULSE 85; RESP 18; O2SAT 93
[2024-06-06 03:39] VITALS: PULSE 83; RESP 18
[2024-06-06 06:00] VITALS: BP 135/85; PULSE 66; RESP 16; TEMP 98.3; O2SAT 95
[2024-06-06 08:48] VITALS: PULSE 82; RESP 16; O2SAT 95
[2024-06-06 10:00] VITALS: BP 103/49; PULSE 76; RESP 16; TEMP 97.6; O2SAT 95
[2024-06-06 11:47] VITALS: RESP 18
== END 2024-06-06 12:35 | disposition swing bed (61) | DRG 314 ==
LOC: ER 15:37 → ED HOLD 20:56 → SUR 3N 23:04
PROVIDERS: ADMIT Internal Medicine Pulmonary Disease; ATTEND Internal Medicine
PROC: 0Y6U0Z0 Detachment at Left 3rd Toe, Complete, Open Approach (ICD-10-PCS; 2024-05-28)
PROC: 0Y6S0Z0 Detachment at Left 2nd Toe, Complete, Open Approach (ICD-10-PCS; 2024-05-28)
PROC: 0Y6Q0Z0 Detachment at Left 1st Toe, Complete, Open Approach (ICD-10-PCS; principal; 2024-05-28 16:51)
DX: T87.81 Dehiscence of amputation stump (principal); N17.0 Acute kidney failure with tubular necrosis; I50.23 Acute on chronic systolic (congestive) heart failure; L03.116 Cellulitis of left lower limb; E11.649 Type 2 diabetes mellitus with hypoglycemia without coma; E11.52 Type 2 diabetes mellitus with diabetic peripheral angiopathy with gangrene; B95.2 Enterococcus as the cause of diseases classified elsewhere; E11.42 Type 2 diabetes mellitus with diabetic polyneuropathy; Z20.822 Contact with and (suspected) exposure to COVID-19; L97.522 Non-pressure chronic ulcer of other part of left foot with fat layer exposed; E11.628 Type 2 diabetes mellitus with other skin complications; E11.65 Type 2 diabetes mellitus with hyperglycemia; G89.29 Other chronic pain; J44.9 Chronic obstructive pulmonary disease, unspecified; M54.89 Other dorsalgia; E11.69 Type 2 diabetes mellitus with other specified complication; M86.8X7 Other osteomyelitis, ankle and foot; E66.01 Morbid (severe) obesity due to excess calories; E11.621 Type 2 diabetes mellitus with foot ulcer; B96.4 Proteus (mirabilis) (morganii) as the cause of diseases classified elsewhere; Z16.24 Resistance to multiple antibiotics; Y83.8 Other surgical procedures as the cause of abnormal reaction of the patient, or of later complication, without mention of misadventure at the time of the procedure; I25.2 Old myocardial infarction; Y92.89 Other specified places as the place of occurrence of the external cause; Z80.3 Family history of malignant neoplasm of breast; Z82.49 Family history of ischemic heart disease and other diseases of the circulatory system; Z68.42 Body mass index [BMI] 45.0-49.9, adult
CPT/HCPCS: 36415; 71045; 73620; 73700; 73718; 76000; 80048; 80053; 80202; 82948; 83605; 83880; 84132; 84145; 84484; 85008; 85025; 85610; 85651; 85730; 86140; 87040; 87070; 87075; 87077; 87081; 87102; 87186; 87502; 87503; 87811; 93005; 93925; 94640; 94760; 96365; 96375; 97110; 97116; 97161; 97530; 99285; A4215; A4615; A4618; A4649; A6154; A6196; A6212; A6213; A6223; A6253; A6446; A6449; A7000; G0378; J0696; J0735; J1100; J1644; J1815; J1940; J1956; J2003; J2250; J2270; J2405; J2543; J2704; J2795; J3010; J3370; J3372; J3490; J7030; J7120

== ENCOUNTER 2024-07-24 13:41 | Inpatient (IN) | payer MEDICAID ==
[~2024-07-24] VITALS: Ht 154.9 cm; Wt 97.0 kg
[~2024-07-24 13:41] MED LIST changes: -ALBU6.7H14 INH; -ASPI-1071 PO; +ATOM40CA7 PO; +ATOR20TA PO; -ATOR20TA66 PO; -BUDE10.22 INH; -CARV-49 PO; +CARV-50 PO; -FENO145T25 PO; +FENO145T38 PO; -FERR325T28 PO; +HYDR12.55 PO; -INSU100I8 SQ; -LANTUS SQ; +NITR0.4T51 SL; -SEMA1PEN3 SQ; -SERT-433 PO; -SERT-434 PO; +SERT25TA PO; -SPIR25TA5 PO
[2024-07-24 14:33] LABS: ALBUMIN 2.6 G/DL (3.4-5.0); ANION GAP 10 (8-16); BASOPHILS # (AUTO) 0.1 X10'3 (0-0.2); BASOPHILS % (AUTO) 0.6 % (0-1); BLOOD UREA NITROGEN 16 MG/DL (7-18); BUN/CREATININE RATIO 16.3 (10.0-20.0); CALCIUM 9.1 MG/DL (8.5-10.1); CHLORIDE 103 MMOL/L (99-107); CREATININE 0.98 MG/DL (0.40-0.90); EOSINOPHILS # (AUTO) 0.1 X10'3 (0-0.9); EOSINOPHILS % (AUTO) 0.5 % (0-6); GLUCOSE 152 MG/DL (70-104); HEMATOCRIT 30.5 % (35.0-45.0); HEMOGLOBIN 9.3 g/dl (12.0-16.0); LYMPHOCYTES % (AUTO) 8.9 % (21-51); MEAN CORPUSCULAR HEMOGLOBIN 24.2 PG (27.0-31.0); MEAN CORPUSCULAR HGB CONC 30.4 g/dL (33.0-36.5); MEAN CORPUSCULAR VOLUME 79.7 FL (78-98); MEAN PLATELET VOLUME 8.8 FL (7.4-10.4); MONOCYTES # (AUTO) 0.6 X10'3 (0-0.9); MONOCYTES % (AUTO) 5.2 % (2-12); NEUTROPHILS # (AUTO) 9.7 X10'3 (1.8-7.7); NEUTROPHILS % (AUTO) 84.8 % (42-75); PLATELET COUNT 532 X10'3 (140-440); POTASSIUM 4.1 MMOL/L (3.5-5.1); RED BLOOD COUNT 3.83 X10'6 (4.20-5.60); RED CELL DISTRIBUTION WIDTH 17.6 % (11.5-14.5); SODIUM 139 MMOL/L (135-145); TOTAL CARBON DIOXIDE 26.3 MMOL/L (24-32); WHITE BLOOD COUNT 11.4 X10'3 (4.5-11.0); eCRCL 50 ML/MIN; eGFR 59 ML/MIN
[2024-07-24] MEDS: normal saline 1000ML IV soln IVB ONE (15:00)
[2024-07-24] MEDS ORDERED: vancomycin/NS 1 GM ADD-VANTAGE 250 ML X 1 DOSE IV ONE (15:05)
[2024-07-24] MEDS ORDERED: DEXTROSE 15 GM of carb/4 tabs (each vial/BOTTLE has 4 tablets) PO PRN ×2 (15:45)
[2024-07-24] MEDS ORDERED: magnesium sulf-water 2g/50mL 50 ML IV PRN (15:45)
[2024-07-24] MEDS ORDERED: potassium Cl 40MEQ/1/2NS 520ml 520 ML IV PRN (15:45)
[2024-07-24] MEDS ORDERED: potassium Cl 20 mEq SR tablet PO PRN ×2 (15:45)
[2024-07-24] MEDS ORDERED: magnesium sulf-water 4G/100mL 100 ML IV PRN (15:45)
[2024-07-24] MEDS ORDERED: glucagon, human recombinant 1mg kit SUBCUT PRN (15:45)
[2024-07-24] MEDS ORDERED: HYDROmorphone inj. 0.5 MG/0.5 ML DISP.SYRIN IV PRN (15:45)
[2024-07-24] MEDS ORDERED: HYDROcodone/acetaminophen 5mg/325mg tablet PO PRN (15:45)
[2024-07-24] MEDS ORDERED: dextrose 50%-water 50ml dispensing syringe IV PRN ×2 (15:45)
[2024-07-24] MEDS ORDERED: HYDROmorphone/PF 0.2 MG/ML SYRINGE IV PRN (15:45)
[2024-07-24] MEDS ORDERED: acetaminophen 325mg tablet PO PRN ×2 (15:45)
[2024-07-24] MEDS ORDERED: magnesium hydroxide 30ml (MOM) UD suspension PO PRN (15:45)
[2024-07-24] MEDS ORDERED: mag hydrox/Alum hydrox/simeth 30ml oral suspension PO PRN (15:45)
[2024-07-24] MEDS ORDERED: INSULIN (16:22)
[2024-07-24] MEDS ORDERED: SEMA1PEN3 SUBCUT (16:22)
[2024-07-24] MEDS ORDERED: INSU100I31 SQ (16:22)
[2024-07-24 16:30] LABS: BILIRUBIN,URINE NEGATIVE (Neg); CLARITY,URINE CLEAR (Clear); COLOR,URINE YELLOW (Yellow); GLUCOSE, URINE >=1000 mg/dl (Neg); KETONES,URINE NEGATIVE (Neg); LEUKOCYTE ESTERASE ,URINE NEGATIVE (Neg); NITRITES, URINE NEGATIVE (Neg); OCCULT BLOOD,URINE MODERATE (Neg); PROTEIN,URINE 100 mg/dl (Neg); UROBILINOGEN,URINE 0.2 E.U/dL (0.2-1.0)
[2024-07-24 16:33] LABS: UA COLLECTION TYPE NON-SPECIFIED
[2024-07-24 16:34] LABS: HEMOGLOBIN A1C 8.2 % (4.5-6.2)
[2024-07-24 16:37] LABS: WBC,URINE 0-4 /HPF (0-4)
[2024-07-24 16:38] LABS: BACTERIA,URINE NONE SEEN /HPF (Neg); MUCUS STRANDS FEW /LPF (Neg); RBC,URINE 20-50 /HPF (0-2); SQUAMOUS EPITHELIAL CELL,UR FEW /LPF (FEW)
[2024-07-24] MEDS: INSULIN LISPRO 100 UNIT/ML INSULN.PEN MULTI-DOSE SQ SCH (17:00)
[2024-07-24] MEDS: piperacillin/tazo 4.5gm/100ml 100 ML IV ONE (17:21)
[2024-07-24 17:35] VITALS: BP 159/73; PULSE 98; RESP 18; TEMP 98.3; O2SAT 97
[2024-07-24] MEDS: piperacillin/tazo 4.5gm/100ml 100 ML IV SCH (19:09)
[2024-07-24 20:00] VITALS: RESP 17; O2SAT 94
[2024-07-24] MEDS: K and/or MAG REPLACEMENT MC SCH (20:00)
[2024-07-24] MEDS: GADOTERATE MEGLUMINE 7.5 MMOL/15 ML VIAL IV ONE (20:33)
[2024-07-24] MEDS: docusate sod 100mg capsule PO SCH (20:34)
[2024-07-24] MEDS: HYDROcodone/acetaminophen 10/325mg tab PO PRN (20:34)
[2024-07-24] MEDS: enoxaparin 40mg/0.4ml syringe SQ SCH (20:40)
[2024-07-24] MEDS ORDERED: HYDROmorphone 1 mg/ml syringe IV PRN (22:47)
[2024-07-24] MEDS: VANCOMYCIN/WATER FOR INJ (PEG) 1.25GM/250 ML IVPB IV SCH (23:55)
[2024-07-25 06:00] VITALS: BP 139/79; PULSE 87; RESP 20; TEMP 97.9; O2SAT 94
[2024-07-25 06:27] LABS: BASOPHILS % (AUTO) 0.2 % (0-1); EOSINOPHILS # (AUTO) 0.1 X10'3 (0-0.9); EOSINOPHILS % (AUTO) 0.7 % (0-6); HEMATOCRIT 26.4 % (35.0-45.0); HEMOGLOBIN 8.3 g/dl (12.0-16.0); LYMPHOCYTES # (AUTO) 0.9 X10'3 (1.1-4.8); LYMPHOCYTES % (AUTO) 10.5 % (21-51); MEAN CORPUSCULAR HGB CONC 31.4 g/dL (33.0-36.5); MEAN CORPUSCULAR VOLUME 79.6 FL (78-98); MEAN PLATELET VOLUME 8.7 FL (7.4-10.4); MONOCYTES # (AUTO) 0.6 X10'3 (0-0.9); MONOCYTES % (AUTO) 6.9 % (2-12); NEUTROPHILS # (AUTO) 7.3 X10'3 (1.8-7.7); NEUTROPHILS % (AUTO) 81.7 % (42-75); PLATELET COUNT 479 X10'3 (140-440); RED BLOOD COUNT 3.32 X10'6 (4.20-5.60); RED CELL DISTRIBUTION WIDTH 17.4 % (11.5-14.5)
[2024-07-25 06:35] LABS: ALANINE AMINOTRANSFERASE 18 U/L (12-78); ALBUMIN 2.3 G/DL (3.4-5.0); ALBUMIN/GLOBULIN RATIO 0.4 (1.1-1.5); ALKALINE PHOSPHATASE 83 IU/L (46-116); ANION GAP 7 (8-16); ASPARTATE AMINO TRANSFERASE 16 U/L (10-37); BILIRUBIN,TOTAL 0.9 MG/DL (0.1-1.0); BLOOD UREA NITROGEN 19 MG/DL (7-18); BUN/CREATININE RATIO 19.6 (10.0-20.0); CALCIUM 8.5 MG/DL (8.5-10.1); CHLORIDE 103 MMOL/L (99-107); CREATININE 0.97 MG/DL (0.40-0.90); GLUCOSE 133 MG/DL (70-104); MAGNESIUM 1.7 MG/DL (1.5-2.4); POTASSIUM 3.9 MMOL/L (3.5-5.1); SODIUM 138 MMOL/L (135-145); TOTAL CARBON DIOXIDE 28.3 MMOL/L (24-32); TOTAL PROTEIN 7.5 G/DL (6.4-8.2); eCRCL 51 ML/MIN; eGFR 60 ML/MIN
[2024-07-25 08:00] VITALS: RESP 20; O2SAT 94
[2024-07-25 10:00] VITALS: BP 122/54; PULSE 90; RESP 18; TEMP 97.8; O2SAT 93
[2024-07-25 10:11] LABS: % IRON SATURATION 10 % (11-46); IRON 29 UG/DL (49-151); TOTAL IRON BINDING CAPACITY 281 UG/DL (259-388)
[2024-07-25] MEDS: VANCOMYCIN/WATER FOR INJ (PEG) 1.25GM/250 ML IVPB IV SCH (12:56)
[2024-07-25] MEDS ORDERED: nitroGLYCERIN 0.4mg SUBLingual tab SL PRN (14:40)
[2024-07-25 18:00] VITALS: BP 119/54; PULSE 101; RESP 20; TEMP 98.6; O2SAT 95
[2024-07-25 20:00] VITALS: RESP 20; O2SAT 95
[2024-07-25] MEDS: ondansetron/PF 4mg/2ml inj IV PRN (21:07)
[2024-07-25] MEDS: gabapentin 300mg capsule PO SCH (21:16)
[2024-07-25] MEDS: carVEDilol 12.5mg tablet PO SCH (21:17)
[2024-07-25] MEDS: atorvastatin 20mg tablet PO SCH (21:17)
[2024-07-25 22:00] VITALS: BP 133/83; PULSE 87; RESP 18; TEMP 98.3; O2SAT 94
[2024-07-25] MEDS: nystatin 15 GM powder TP SCH (23:48)
[2024-07-26] VITALS (12 sets, daily range): BP systolic 101–155; BP diastolic 52–89; PULSE 76–96; RESP 13–20; TEMP 97.6–98.9; O2SAT 16–98
[2024-07-26] MEDS: HYDROmorphone inj. 0.5 MG/0.5 ML DISP.SYRIN IV PRN (05:40)
[2024-07-26 06:14] LABS: BASOPHILS % (AUTO) 0.3 % (0-1); EOSINOPHILS % (AUTO) 0.5 % (0-6); HEMATOCRIT 25.4 % (35.0-45.0); LYMPHOCYTES # (AUTO) 0.9 X10'3 (1.1-4.8); LYMPHOCYTES % (AUTO) 8.7 % (21-51); MEAN CORPUSCULAR HEMOGLOBIN 24.8 PG (27.0-31.0); MEAN CORPUSCULAR HGB CONC 31.7 g/dL (33.0-36.5); MEAN CORPUSCULAR VOLUME 78.2 FL (78-98); MEAN PLATELET VOLUME 8.4 FL (7.4-10.4); MONOCYTES # (AUTO) 0.6 X10'3 (0-0.9); MONOCYTES % (AUTO) 6.2 % (2-12); NEUTROPHILS # (AUTO) 8.6 X10'3 (1.8-7.7); NEUTROPHILS % (AUTO) 84.3 % (42-75); PLATELET COUNT 457 X10'3 (140-440); RED BLOOD COUNT 3.25 X10'6 (4.20-5.60); RED CELL DISTRIBUTION WIDTH 17.3 % (11.5-14.5); WHITE BLOOD COUNT 10.2 X10'3 (4.5-11.0)
[2024-07-26 06:49] LABS: ALANINE AMINOTRANSFERASE 16 U/L (12-78); ALBUMIN 2.2 G/DL (3.4-5.0); ALBUMIN/GLOBULIN RATIO 0.4 (1.1-1.5); ALKALINE PHOSPHATASE 79 IU/L (46-116); ANION GAP 9 (8-16); ASPARTATE AMINO TRANSFERASE 13 U/L (10-37); BILIRUBIN,TOTAL 0.9 MG/DL (0.1-1.0); BLOOD UREA NITROGEN 21 MG/DL (7-18); BUN/CREATININE RATIO 21.6 (10.0-20.0); CALCIUM 8.4 MG/DL (8.5-10.1); CHLORIDE 104 MMOL/L (99-107); CREATININE 0.97 MG/DL (0.40-0.90); GLUCOSE 163 MG/DL (70-104); MAGNESIUM 1.8 MG/DL (1.5-2.4); POTASSIUM 4.3 MMOL/L (3.5-5.1); SODIUM 137 MMOL/L (135-145); TOTAL CARBON DIOXIDE 23.9 MMOL/L (24-32); TOTAL PROTEIN 7.3 G/DL (6.4-8.2); eCRCL 51 ML/MIN; eGFR 60 ML/MIN
[2024-07-26] MEDS ORDERED: BUPIVAcaine 2.5mg/ml inj 50ml vial (contains preservative) ONE (07:13)
[2024-07-26] MEDS ORDERED: meperidine/PF 25mg/ml syringe IV PRN (07:50)
[2024-07-26] MEDS ORDERED: morphine 2 MG/ML inj. syringe IV PRN (07:50)
[2024-07-26] MEDS ORDERED: proCHLORperazine 10 MG/2 ml inj IV PRN (07:50)
[2024-07-26] MEDS: ringers solution, lacted 1,000 ML IV SCH (07:50)
[2024-07-26] MEDS ORDERED: acetaminophen 1,000mg/100ml IV 100 ML IV PRN (07:50)
[2024-07-26] MEDS ORDERED: ondansetron/PF 4mg/2ml inj IV PRN (07:50)
[2024-07-26] MEDS ORDERED: morphine 4 MG/ML inj SYRINge IV PRN (07:50)
[2024-07-26] MEDS ORDERED: labetalol 20mg/4ml (5mg/ml) syringe IV PRN (07:50)
[2024-07-26] MEDS ORDERED: HYDROmorphone/PF 0.2 MG/ML SYRINGE IV PRN ×2 (07:50)
[2024-07-26] MEDS ORDERED: hydrALAZINE 20mg/ml inj. IV PRN (07:50)
[2024-07-26] MEDS ORDERED: cloNIDine hcl/PF 100mcg/ml inj ONE ×2 (07:55→08:02)
[2024-07-26] MEDS ORDERED: fentaNYL/PF 50MCG/1 ML 2ML syringe ONE (07:57)
[2024-07-26] MEDS ORDERED: vancomycin 1,000mg inj ONE (08:36)
[2024-07-26] MEDS ORDERED: propofol inj 20 ML IV ONE (08:46)
[2024-07-26] MEDS ORDERED: LIDOcaine 2% (20mg/ml) 5ml vial ONE (08:46)
[2024-07-26] MEDS ORDERED: midazolam 1 mg/ML 2ml injection ONE (08:46)
[2024-07-26] MEDS ORDERED: ROPIVAcaine 0.5% (5mg/ml) 30ml vial ONE (08:46)
[2024-07-26] MEDS ORDERED: rocuronium 10mg/ml inj IV ONE (08:46)
[2024-07-26] MEDS ORDERED: dexamethasone sod phosphate 4mg/ml inj. ONE (08:46)
[2024-07-26] MEDS ORDERED: ondansetron/PF 4mg/2ml inj ONE (08:46)
[2024-07-26] MEDS ORDERED: glycopyrrolate 0.2mg/ml inj ONE (08:47)
[2024-07-26] MEDS ORDERED: neostigmine methylsulfate 1 MG/ML 10ml vial ONE (08:47)
[2024-07-26] MEDS ORDERED: naloxone 0.4 mg/ml inj IV PRN (09:20)
[2024-07-26] MEDS: VANCOMYCIN LEVEL IV ONE (11:30)
[2024-07-26] MEDS: fenofibrate 145mg tablet PO SCH (12:35)
[2024-07-26] MEDS: sertraline 50mg tablet PO SCH (12:36)
[2024-07-26] MEDS: pantoprazole 40mg Tablet.DR PO SCH (12:36)
[2024-07-26] MEDS: EMPAGLIFLOZIN 10 MG TABLET PO SCH (12:37)
[2024-07-26] MEDS: atomoxetine 40 MG capsule PO SCH (12:37)
[2024-07-26] MEDS: lisinopril 10 MG tablet PO SCH (12:39)
[2024-07-26] MEDS ORDERED: iohexol 350MG/ML 100ml bottle IV ONE (13:20)
[2024-07-26] MEDS ORDERED: iohexol 350 MG/ML 50ML vial IV ONE (13:20)
[2024-07-26] MEDS: vancomycin/NS 1 GM ADD-VANTAGE 250 ML IV SCH (13:57)
[2024-07-26] MEDS: iron sucrose complex injection 300 MG in normal saline 250ml IV soln 250 ML IV SCH (13:57)
[2024-07-27 02:00] VITALS: BP 120/53; PULSE 90; RESP 20; TEMP 97.7; O2SAT 95
[2024-07-27 06:04] LABS: BASOPHILS % (AUTO) 0.1 % (0-1); EOSINOPHILS % (AUTO) 0 % (0-6); HEMATOCRIT 26.8 % (35.0-45.0); LYMPHOCYTES # (AUTO) 0.6 X10'3 (1.1-4.8); LYMPHOCYTES % (AUTO) 3.9 % (21-51); MEAN CORPUSCULAR HEMOGLOBIN 24.3 PG (27.0-31.0); MEAN CORPUSCULAR HGB CONC 30.1 g/dL (33.0-36.5); MEAN CORPUSCULAR VOLUME 80.9 FL (78-98); MEAN PLATELET VOLUME 8.4 FL (7.4-10.4); MONOCYTES # (AUTO) 0.6 X10'3 (0-0.9); MONOCYTES % (AUTO) 4.2 % (2-12); NEUTROPHILS # (AUTO) 13.4 X10'3 (1.8-7.7); NEUTROPHILS % (AUTO) 91.8 % (42-75); PLATELET COUNT 469 X10'3 (140-440); RED BLOOD COUNT 3.31 X10'6 (4.20-5.60); RED CELL DISTRIBUTION WIDTH 17.5 % (11.5-14.5); WHITE BLOOD COUNT 14.6 X10'3 (4.5-11.0)
[2024-07-27 06:35] LABS: ALANINE AMINOTRANSFERASE 8 U/L (12-78); ALBUMIN 2.1 G/DL (3.4-5.0); ALBUMIN/GLOBULIN RATIO 0.4 (1.1-1.5); ALKALINE PHOSPHATASE 52 IU/L (46-116); ANION GAP 13 (8-16); ASPARTATE AMINO TRANSFERASE 12 U/L (10-37); BILIRUBIN,TOTAL 0.9 MG/DL (0.1-1.0); BLOOD UREA NITROGEN 29 MG/DL (7-18); BUN/CREATININE RATIO 29.9 (10.0-20.0); CALCIUM 8.3 MG/DL (8.5-10.1); CHLORIDE 101 MMOL/L (99-107); CREATININE 0.97 MG/DL (0.40-0.90); GLUCOSE 244 MG/DL (70-104); MAGNESIUM 1.9 MG/DL (1.5-2.4); POTASSIUM 4.7 MMOL/L (3.5-5.1); SODIUM 135 MMOL/L (135-145); TOTAL CARBON DIOXIDE 20.7 MMOL/L (24-32); eCRCL 51 ML/MIN; eGFR 60 ML/MIN
[2024-07-27 06:54] VITALS: BP 111/66; PULSE 85; RESP 18; TEMP 97.9; O2SAT 97
[2024-07-27 06:54] LABS: ANISOCYTOSIS 1+; PLATELET ESTIMATE INCREASED; POLYCHROMASIA 1+; TOTAL CELLS COUNTED 100
[2024-07-27 08:00] VITALS: RESP 16
[2024-07-27] MEDS: PCA WASTE DOCUMENTATION 1 MG ML MC SCH (08:00)
[2024-07-27] MEDS: DAPTOmycin inj. 700 MG in normal saline 100ml IV soln 100 ML IV SCH (11:41)
[2024-07-27 18:00] VITALS: BP 128/81; PULSE 83; RESP 22; TEMP 97.8; O2SAT 96
[2024-07-27 22:00] VITALS: BP 118/71; PULSE 68; RESP 17; TEMP 97.6; O2SAT 96
[2024-07-28 05:29] LABS: BASOPHILS % (AUTO) 0.2 % (0-1); EOSINOPHILS % (AUTO) 0.1 % (0-6); HEMATOCRIT 29.4 % (35.0-45.0); HEMOGLOBIN 8.9 g/dl (12.0-16.0); LYMPHOCYTES # (AUTO) 0.9 X10'3 (1.1-4.8); LYMPHOCYTES % (AUTO) 6.8 % (21-51); MEAN CORPUSCULAR HEMOGLOBIN 24.4 PG (27.0-31.0); MEAN CORPUSCULAR HGB CONC 30.3 g/dL (33.0-36.5); MEAN CORPUSCULAR VOLUME 80.5 FL (78-98); MEAN PLATELET VOLUME 8.7 FL (7.4-10.4); MONOCYTES # (AUTO) 0.8 X10'3 (0-0.9); MONOCYTES % (AUTO) 6.1 % (2-12); NEUTROPHILS # (AUTO) 11.1 X10'3 (1.8-7.7); NEUTROPHILS % (AUTO) 86.8 % (42-75); PLATELET COUNT 560 X10'3 (140-440); RED BLOOD COUNT 3.65 X10'6 (4.20-5.60); RED CELL DISTRIBUTION WIDTH 17.8 % (11.5-14.5); WHITE BLOOD COUNT 12.7 X10'3 (4.5-11.0)
[2024-07-28 05:49] LABS: ALANINE AMINOTRANSFERASE 12 U/L (12-78); ALBUMIN 2.3 G/DL (3.4-5.0); ALBUMIN/GLOBULIN RATIO 0.4 (1.1-1.5); ALKALINE PHOSPHATASE 60 IU/L (46-116); ANION GAP 8 (8-16); ASPARTATE AMINO TRANSFERASE 9 U/L (10-37); BILIRUBIN,TOTAL 0.9 MG/DL (0.1-1.0); BLOOD UREA NITROGEN 34 MG/DL (7-18); BUN/CREATININE RATIO 30.9 (10.0-20.0); CALCIUM 8.6 MG/DL (8.5-10.1); CHLORIDE 102 MMOL/L (99-107); GLUCOSE 293 MG/DL (70-104); POTASSIUM 4.3 MMOL/L (3.5-5.1); SODIUM 136 MMOL/L (135-145); TOTAL CARBON DIOXIDE 26.1 MMOL/L (24-32); TOTAL PROTEIN 7.6 G/DL (6.4-8.2); eCRCL 45 ML/MIN; eGFR 52 ML/MIN
[2024-07-28 06:00] VITALS: BP 110/63; PULSE 79; RESP 16; TEMP 97.6; O2SAT 94
[2024-07-28 08:00] VITALS: RESP 16; O2SAT 94
[2024-07-28] MEDS: INSULIN LISPRO 100 UNIT/ML INSULN.PEN MULTI-DOSE SQ SCH ×3 (08:31→12:33)
[2024-07-28 10:27] VITALS: PULSE 79; RESP 16; TEMP 97.6; O2SAT 95
[2024-07-28 10:40] VITALS: RESP 16; O2SAT 95
[2024-07-28] MEDS ORDERED: VANCOMYCIN LEVEL IV ONE (12:30)
[2024-07-28] MEDS: JUVEN Smoothie Arginine/Glut./Ca2+Bmb (Juven 19.3pkt) 240ml cup PO SCH (17:30)
[2024-07-28 18:00] VITALS: BP 108/44; PULSE 81; RESP 16; TEMP 97.6; O2SAT 95
[2024-07-28] MEDS ORDERED: insulin glargine (Lantus) pen - multi-dose SQ SCH (21:00)
[2024-07-28] MEDS: insulin glargine (Lantus) pen - multi-dose SQ SCH (21:56)
[2024-07-28 22:00] VITALS: BP 111/63; PULSE 64; RESP 16; TEMP 97.8; O2SAT 96
[2024-07-29] VITALS (8 sets, daily range): BP systolic 115–128; BP diastolic 64–71; PULSE 68–86; RESP 16–20; TEMP 96.5–97.7; O2SAT 93–99
[2024-07-29 04:57] LABS: EOSINOPHILS # (AUTO) 0.1 X10'3 (0-0.9); MEAN CORPUSCULAR VOLUME 81.5 FL (78-98); MONOCYTES # (AUTO) 0.6 X10'3 (0-0.9); MONOCYTES % (AUTO) 7.3 % (2-12)
[2024-07-29 05:00] LABS: BASOPHILS # (AUTO) 0.1 X10'3 (0-0.2); BASOPHILS % (AUTO) 0.8 % (0-1); EOSINOPHILS % (AUTO) 1.3 % (0-6); HEMATOCRIT 28.7 % (35.0-45.0); HEMOGLOBIN 8.9 g/dl (12.0-16.0); MEAN CORPUSCULAR HEMOGLOBIN 25.1 PG (27.0-31.0); MEAN CORPUSCULAR HGB CONC 30.9 g/dL (33.0-36.5); MEAN PLATELET VOLUME 8.5 FL (7.4-10.4); NEUTROPHILS # (AUTO) 6.9 X10'3 (1.8-7.7); NEUTROPHILS % (AUTO) 78.6 % (42-75); PLATELET COUNT 535 X10'3 (140-440); RED BLOOD COUNT 3.53 X10'6 (4.20-5.60); RED CELL DISTRIBUTION WIDTH 17.3 % (11.5-14.5); WHITE BLOOD COUNT 8.7 X10'3 (4.5-11.0)
[2024-07-29 05:18] LABS: ANISOCYTOSIS 1+; PLATELET ESTIMATE INCREASED; TOTAL CELLS COUNTED 100
[2024-07-29 05:19] LABS: LARGE PLATELETS FEW; POLYCHROMASIA FEW
[2024-07-29 05:23] LABS: ALANINE AMINOTRANSFERASE 13 U/L (12-78); ALBUMIN 2.2 G/DL (3.4-5.0); ALBUMIN/GLOBULIN RATIO 0.4 (1.1-1.5); ALKALINE PHOSPHATASE 51 IU/L (46-116); ANION GAP 7 (8-16); ASPARTATE AMINO TRANSFERASE 14 U/L (10-37); BILIRUBIN,TOTAL 0.6 MG/DL (0.1-1.0); BLOOD UREA NITROGEN 25 MG/DL (7-18); BUN/CREATININE RATIO 24.5 (10.0-20.0); CALCIUM 8.7 MG/DL (8.5-10.1); CHLORIDE 104 MMOL/L (99-107); CREATININE 1.02 MG/DL (0.40-0.90); GLUCOSE 277 MG/DL (70-104); MAGNESIUM 2.1 MG/DL (1.5-2.4); POTASSIUM 4.7 MMOL/L (3.5-5.1); SODIUM 139 MMOL/L (135-145); TOTAL CARBON DIOXIDE 28.1 MMOL/L (24-32); TOTAL PROTEIN 7.1 G/DL (6.4-8.2); eCRCL 48 ML/MIN; eGFR 57 ML/MIN
[2024-07-29] MEDS: clopidogrel 75mg tablet PO SCH (08:38)
[2024-07-29] MEDS: aspirin 81mg tab.chew PO SCH (08:38)
[2024-07-29] MEDS: INSULIN LISPRO 100 UNIT/ML INSULN.PEN MULTI-DOSE SQ SCH (09:00)
[2024-07-29] MEDS: metroNIDAZOLE 500mg tablet PO SCH (13:36)
[2024-07-29] MEDS: insulin glargine (Lantus) pen - multi-dose SQ SCH (21:07)
[2024-07-30] VITALS (8 sets, daily range): BP systolic 117–160; BP diastolic 71–93; PULSE 77–86; RESP 16–18; TEMP 97–98.5; O2SAT 93–99
[2024-07-30] MEDS: CefTRIAXone 2gm/D5W 50ml BAG 50 ML IV SCH (07:53)
[2024-07-30] MEDS: DAPTOmycin inj. 750 MG in normal saline 100ml IV soln 100 ML IV SCH (07:55)
[2024-07-30] MEDS: INSULIN LISPRO 100 UNIT/ML INSULN.PEN MULTI-DOSE SQ SCH (09:09)
[2024-07-30 15:41] LABS: BASOPHILS # (AUTO) 0.1 X10'3 (0-0.2); BASOPHILS % (AUTO) 0.8 % (0-1); EOSINOPHILS # (AUTO) 0.3 X10'3 (0-0.9); EOSINOPHILS % (AUTO) 2.6 % (0-6); LYMPHOCYTES % (AUTO) 9.8 % (21-51); MEAN PLATELET VOLUME 8.3 FL (7.4-10.4); MONOCYTES # (AUTO) 0.4 X10'3 (0-0.9); MONOCYTES % (AUTO) 4.2 % (2-12); NEUTROPHILS # (AUTO) 8.3 X10'3 (1.8-7.7); NEUTROPHILS % (AUTO) 82.6 % (42-75); PLATELET COUNT 508 X10'3 (140-440); WHITE BLOOD COUNT 10.1 X10'3 (4.5-11.0)
[2024-07-30 15:49] LABS: ALANINE AMINOTRANSFERASE 13 U/L (12-78); ALBUMIN 2.2 G/DL (3.4-5.0); ALBUMIN/GLOBULIN RATIO 0.5 (1.1-1.5); ALKALINE PHOSPHATASE 49 IU/L (46-116); ANION GAP 7 (8-16); ASPARTATE AMINO TRANSFERASE 9 U/L (10-37); BILIRUBIN,TOTAL 0.4 MG/DL (0.1-1.0); BLOOD UREA NITROGEN 25 MG/DL (7-18); BUN/CREATININE RATIO 29.1 (10.0-20.0); CALCIUM 8.6 MG/DL (8.5-10.1); CHLORIDE 104 MMOL/L (99-107); CREATININE 0.86 MG/DL (0.40-0.90); GLUCOSE 269 MG/DL (70-104); POTASSIUM 4.6 MMOL/L (3.5-5.1); SODIUM 139 MMOL/L (135-145); TOTAL CARBON DIOXIDE 28.4 MMOL/L (24-32); TOTAL PROTEIN 6.9 G/DL (6.4-8.2); eCRCL 57 ML/MIN; eGFR 69 ML/MIN
[2024-07-30 16:27] LABS: HEMOGLOBIN 8.8 g/dl (12.0-16.0); MEAN CORPUSCULAR HEMOGLOBIN 25.6 PG (27.0-31.0); MEAN CORPUSCULAR HGB CONC 31.6 g/dL (33.0-36.5); MEAN CORPUSCULAR VOLUME 81.2 FL (78-98); RED BLOOD COUNT 3.45 X10'6 (4.20-5.60); RED CELL DISTRIBUTION WIDTH 17.1 % (11.5-14.5)
[2024-07-30 18:43] LABS: TOTAL CELLS COUNTED 100
[2024-07-30 18:44] LABS: ELLIPTOCYTES FEW; PLATELET ESTIMATE INCREASED; POLYCHROMASIA FEW
[2024-07-30 18:45] LABS: LARGE PLATELETS FEW
[2024-07-31 04:40] LABS: BASOPHILS # (AUTO) 0.1 X10'3 (0-0.2); BASOPHILS % (AUTO) 0.6 % (0-1); EOSINOPHILS # (AUTO) 0.4 X10'3 (0-0.9); EOSINOPHILS % (AUTO) 3.4 % (0-6); HEMATOCRIT 29.4 % (35.0-45.0); LYMPHOCYTES % (AUTO) 9.4 % (21-51); MEAN CORPUSCULAR HEMOGLOBIN 25.5 PG (27.0-31.0); MEAN CORPUSCULAR HGB CONC 30.5 g/dL (33.0-36.5); MEAN CORPUSCULAR VOLUME 83.6 FL (78-98); MEAN PLATELET VOLUME 8.3 FL (7.4-10.4); MONOCYTES # (AUTO) 0.6 X10'3 (0-0.9); MONOCYTES % (AUTO) 5.5 % (2-12); NEUTROPHILS # (AUTO) 8.7 X10'3 (1.8-7.7); NEUTROPHILS % (AUTO) 81.1 % (42-75); PLATELET COUNT 498 X10'3 (140-440); RED BLOOD COUNT 3.52 X10'6 (4.20-5.60); RED CELL DISTRIBUTION WIDTH 17.8 % (11.5-14.5); WHITE BLOOD COUNT 10.7 X10'3 (4.5-11.0)
[2024-07-31 05:00] LABS: ALANINE AMINOTRANSFERASE 11 U/L (12-78); ALBUMIN 2.2 G/DL (3.4-5.0); ALBUMIN/GLOBULIN RATIO 0.5 (1.1-1.5); ALKALINE PHOSPHATASE 47 IU/L (46-116); ANION GAP 5 (8-16); ASPARTATE AMINO TRANSFERASE 13 U/L (10-37); BILIRUBIN,TOTAL 0.4 MG/DL (0.1-1.0); BLOOD UREA NITROGEN 21 MG/DL (7-18); BUN/CREATININE RATIO 27.6 (10.0-20.0); CALCIUM 8.6 MG/DL (8.5-10.1); CHLORIDE 105 MMOL/L (99-107); CREATINE KINASE 37 U/L (26-192); CREATININE 0.76 MG/DL (0.40-0.90); GLUCOSE 159 MG/DL (70-104); POTASSIUM 4.4 MMOL/L (3.5-5.1); SODIUM 139 MMOL/L (135-145); TOTAL CARBON DIOXIDE 29.5 MMOL/L (24-32); TOTAL PROTEIN 6.3 G/DL (6.4-8.2); eCRCL 65 ML/MIN; eGFR 80 ML/MIN
[2024-07-31 05:01] LABS: TOTAL CELLS COUNTED 100
[2024-07-31 06:00] VITALS: BP 130/69; PULSE 83; RESP 14; TEMP 98; O2SAT 95
[2024-07-31 08:00] VITALS: RESP 17; O2SAT 98
[2024-07-31 10:00] VITALS: BP 119/52; PULSE 82; RESP 17; TEMP 98.6; O2SAT 93
[2024-07-31 10:28] VITALS: RESP 16
== END 2024-07-31 17:44 | DRG 710 ==
LOC: ER 13:42 → UNDOADMIN 15:55 → SUR 3N 15:55 → ED HOLD 15:55 → SUR 3N 17:00 → ED HOLD 17:00 → UNDOADMIN 07-26 09:20 → SUR 3N 07-26 09:20 → ED HOLD 07-26 09:20
PROVIDERS: ADMIT Family Medicine; ATTEND Family Medicine
PROC: B42H1ZZ Computerized Tomography (CT Scan) of Bilateral Lower Extremity Arteries using Low Osmolar Contrast (ICD-10-PCS; 2024-07-26)
PROC: 0QBL0ZZ Excision of Right Tarsal, Open Approach (ICD-10-PCS; 2024-07-26)
PROC: 3E0T3BZ Introduction of Anesthetic Agent into Peripheral Nerves and Plexi, Percutaneous Approach (ICD-10-PCS; 2024-07-26)
PROC: 3E0T33Z Introduction of Anti-inflammatory into Peripheral Nerves and Plexi, Percutaneous Approach (ICD-10-PCS; 2024-07-26)
PROC: B4201ZZ Computerized Tomography (CT Scan) of Abdominal Aorta using Low Osmolar Contrast (ICD-10-PCS; principal; 2024-07-26 08:02)
PROC: 02HV33Z Insertion of Infusion Device into Superior Vena Cava, Percutaneous Approach (ICD-10-PCS; 2024-07-29)
PROC: 4A02X4A Measurement of Cardiac Electrical Activity, Guidance, External Approach (ICD-10-PCS; 2024-07-29)
DX: A41.89 Other specified sepsis (principal); E11.52 Type 2 diabetes mellitus with diabetic peripheral angiopathy with gangrene; E11.42 Type 2 diabetes mellitus with diabetic polyneuropathy; L97.519 Non-pressure chronic ulcer of other part of right foot with unspecified severity; L03.115 Cellulitis of right lower limb; D64.9 Anemia, unspecified; D75.839 Thrombocytosis, unspecified; E11.621 Type 2 diabetes mellitus with foot ulcer; M65.941 Unspecified synovitis and tenosynovitis, right hand; I11.0 Hypertensive heart disease with heart failure; I50.22 Chronic systolic (congestive) heart failure; E78.5 Hyperlipidemia, unspecified; F32.A Depression, unspecified; D86.89 Sarcoidosis of other sites; E11.69 Type 2 diabetes mellitus with other specified complication; K21.9 Gastro-esophageal reflux disease without esophagitis; T81.40XA Infection following a procedure, unspecified, initial encounter; Y83.8 Other surgical procedures as the cause of abnormal reaction of the patient, or of later complication, without mention of misadventure at the time of the procedure; M86.8X7 Other osteomyelitis, ankle and foot; J44.9 Chronic obstructive pulmonary disease, unspecified; S91.301A Unspecified open wound, right foot, initial encounter; X58.XXXA Exposure to other specified factors, initial encounter; Y93.89 Activity, other specified; Y92.89 Other specified places as the place of occurrence of the external cause; Y99.8 Other external cause status; Z79.84 Long term (current) use of oral hypoglycemic drugs; Z79.4 Long term (current) use of insulin; Z79.899 Other long term (current) drug therapy; Z83.3 Family history of diabetes mellitus
CPT/HCPCS: 36415; 36569; 71045; 73620; 73630; 73723; 75635; 76937; 80048; 80053; 80202; 81001; 82550; 82948; 83036; 83540; 83550; 83605; 83735; 85007; 85025; 87040; 87070; 87075; 87077; 87081; 87186; 93005; 93922; 93926; 97116; 97161; 97530; 99285; A4618; A4649; A6154; A6222; A6253; A6258; A6446; A6449; A7000; C1751; G0378; J0696; J0735; J0878; J1100; J1171; J1650; J1756; J1815; J2003; J2250; J2405; J2543; J2704; J2710; J2795; J3010; J3370; J3372; J3490; J7030; J7040; J7050; Q9967

== ENCOUNTER 2024-08-04 13:05 | Inpatient (IN) | payer MEDICAID ==
[~2024-08-04] VITALS: Ht 152.4 cm; Wt 103.0 kg
[2024-08-04] MEDS: K and/or MAG REPLACEMENT MC SCH (09:02)
[~2024-08-04 13:05] MED LIST changes: -ATOM40CA7 PO; -HYDR12.55 PO; +INSU100I31 SQ; +INSULIN; +SEMA1PEN3 SUBCUT
[2024-08-04 13:34] LABS: EOSINOPHILS # (AUTO) 0.2 X10'3 (0-0.9); LYMPHOCYTES # (AUTO) 0.8 X10'3 (1.1-4.8); MEAN CORPUSCULAR VOLUME 83.5 FL (78-98); NEUTROPHILS # (AUTO) 4.1 X10'3 (1.8-7.7); WHITE BLOOD COUNT 5.8 X10'3 (4.5-11.0)
[2024-08-04 13:35] LABS: BASOPHILS # (AUTO) 0.1 X10'3 (0-0.2); BASOPHILS % (AUTO) 1.1 % (0-1); EOSINOPHILS % (AUTO) 3.3 % (0-6); HEMOGLOBIN 8.7 g/dl (12.0-16.0); LYMPHOCYTES % (AUTO) 14.2 % (21-51); MEAN CORPUSCULAR HEMOGLOBIN 25.2 PG (27.0-31.0); MEAN CORPUSCULAR HGB CONC 30.2 g/dL (33.0-36.5); MEAN PLATELET VOLUME 8.7 FL (7.4-10.4); MONOCYTES # (AUTO) 0.6 X10'3 (0-0.9); MONOCYTES % (AUTO) 10.6 % (2-12); NEUTROPHILS % (AUTO) 70.8 % (42-75); PLATELET COUNT 380 X10'3 (140-440); RED BLOOD COUNT 3.47 X10'6 (4.20-5.60); RED CELL DISTRIBUTION WIDTH 22.2 % (11.5-14.5)
[2024-08-04 13:49] LABS: APTT 28 SECONDS (22-32); INR 1.3 INR
[2024-08-04 14:14] LABS: PROTHROMBIN TIME 13.3 SECONDS (9.0-12.0)
[2024-08-04 14:43] LABS: ALANINE AMINOTRANSFERASE 14 U/L (12-78); ALBUMIN 2.4 G/DL (3.4-5.0); ALBUMIN/GLOBULIN RATIO 0.6 (1.1-1.5); ALKALINE PHOSPHATASE 43 IU/L (46-116); ANION GAP 7 (8-16); ASPARTATE AMINO TRANSFERASE 19 U/L (10-37); BILIRUBIN,TOTAL 0.3 MG/DL (0.1-1.0); BLOOD UREA NITROGEN 20 MG/DL (7-18); C-REACTIVE PROTEIN 2.32 MG/DL (0.0-0.5); CALCIUM 8.5 MG/DL (8.5-10.1); CHLORIDE 103 MMOL/L (99-107); GLUCOSE 155 MG/DL (70-104); POTASSIUM 4.3 MMOL/L (3.5-5.1); SODIUM 138 MMOL/L (135-145); TOTAL CARBON DIOXIDE 27.8 MMOL/L (24-32); TOTAL PROTEIN 6.4 G/DL (6.4-8.2); eCRCL 47 ML/MIN; eGFR 58 ML/MIN
[2024-08-04] MEDS: HYDROmorphone 1 mg/ml syringe IV ONE (15:51)
[2024-08-04] MEDS: metoclopramide 5 mg/ml inj IV ONE (15:51)
[2024-08-04] MEDS: diphenhydrAMINE 50 mg/ml inj IV ONE (15:51)
[2024-08-04] MEDS ORDERED: potassium Cl 40MEQ/1/2NS 520ml 520 ML IV PRN (17:20)
[2024-08-04] MEDS ORDERED: potassium Cl 20 mEq SR tablet PO PRN ×2 (17:20)
[2024-08-04] MEDS ORDERED: ondansetron/PF 4mg/2ml inj IV PRN (17:20)
[2024-08-04] MEDS ORDERED: magnesium sulf-water 2g/50mL 50 ML IV PRN (17:20)
[2024-08-04] MEDS ORDERED: magnesium sulf-water 4G/100mL 100 ML IV PRN (17:20)
[2024-08-04] MEDS: ceFAZolin/D5W- 1GM premix 50 ML IV STA (19:15)
[2024-08-04] MEDS: normal saline 1000ml 1,000 ML IV SCH (19:50)
[2024-08-04 20:00] VITALS: RESP 16; O2SAT 97
[2024-08-04 20:55] VITALS: BP 122/68; PULSE 91; RESP 16; TEMP 99; O2SAT 94
[2024-08-05] VITALS (18 sets, daily range): BP systolic 119–156; BP diastolic 59–89; PULSE 78–100; RESP 15–21; TEMP 97.4–98.3; O2SAT 94–99
[2024-08-05] MEDS ORDERED: DEXTROSE 15 GM of carb/4 tabs (each vial/BOTTLE has 4 tablets) PO PRN ×2 (03:25)
[2024-08-05] MEDS ORDERED: dextrose 50%-water 50ml dispensing syringe IV PRN ×2 (03:25)
[2024-08-05] MEDS ORDERED: glucagon, human recombinant 1mg kit SUBCUT PRN (03:25)
[2024-08-05 06:04] LABS: BASOPHILS % (AUTO) 0.4 % (0-1); EOSINOPHILS # (AUTO) 0.2 X10'3 (0-0.9); EOSINOPHILS % (AUTO) 2.9 % (0-6); HEMATOCRIT 25.4 % (35.0-45.0); HEMOGLOBIN 7.9 g/dl (12.0-16.0); LYMPHOCYTES # (AUTO) 0.6 X10'3 (1.1-4.8); MEAN CORPUSCULAR HGB CONC 31.1 g/dL (33.0-36.5); MEAN CORPUSCULAR VOLUME 83.4 FL (78-98); MEAN PLATELET VOLUME 8.3 FL (7.4-10.4); MONOCYTES # (AUTO) 0.7 X10'3 (0-0.9); MONOCYTES % (AUTO) 11.9 % (2-12); NEUTROPHILS # (AUTO) 4.3 X10'3 (1.8-7.7); NEUTROPHILS % (AUTO) 73.8 % (42-75); PLATELET COUNT 321 X10'3 (140-440); RED BLOOD COUNT 3.05 X10'6 (4.20-5.60); RED CELL DISTRIBUTION WIDTH 22.8 % (11.5-14.5); WHITE BLOOD COUNT 5.8 X10'3 (4.5-11.0)
[2024-08-05 06:14] LABS: ALBUMIN 2.1 G/DL (3.4-5.0); ANION GAP 7 (8-16); BLOOD UREA NITROGEN 20 MG/DL (7-18); BUN/CREATININE RATIO 25.6 (10.0-20.0); CALCIUM 7.5 MG/DL (8.5-10.1); CHLORIDE 111 MMOL/L (99-107); CREATININE 0.78 MG/DL (0.40-0.90); GLUCOSE 99 MG/DL (70-104); MAGNESIUM 1.4 MG/DL (1.5-2.4); SODIUM 144 MMOL/L (135-145); TOTAL CARBON DIOXIDE 25.8 MMOL/L (24-32); eCRCL 60 ML/MIN; eGFR 77 ML/MIN
[2024-08-05] MEDS: INSULIN LISPRO 100 UNIT/ML INSULN.PEN MULTI-DOSE SQ SCH (07:00)
[2024-08-05] MEDS: gabapentin 300mg capsule PO SCH (08:52)
[2024-08-05] MEDS: lisinopril 10 MG tablet PO SCH (08:57)
[2024-08-05] MEDS: carVEDilol 12.5mg tablet PO SCH (08:58)
[2024-08-05] MEDS: pantoprazole 40mg Tablet.DR PO SCH (08:58)
[2024-08-05] MEDS: sertraline 50mg tablet PO SCH (08:58)
[2024-08-05] MEDS: fenofibrate 145mg tablet PO SCH (08:58)
[2024-08-05] MEDS: magnesium Cl slow-release 64mg tablet PO PRN (09:12)
[2024-08-05] MEDS: HYDROcodone/acetaminophen 5mg/325mg tablet PO PRN (09:14)
[2024-08-05] MEDS ORDERED: bacitracin 15gm ointment TP ONE (14:00)
[2024-08-05] MEDS ORDERED: BUPIVAcaine 2.5mg/ml inj 50ml vial (contains preservative) ONE (14:00)
[2024-08-05] MEDS ORDERED: morphine 4 MG/ML inj SYRINge IV PRN (15:40)
[2024-08-05] MEDS ORDERED: hydrALAZINE 20mg/ml inj. IV PRN (15:40)
[2024-08-05] MEDS ORDERED: ondansetron/PF 4mg/2ml inj IV PRN ×2 (15:40→18:40)
[2024-08-05] MEDS ORDERED: HYDROmorphone/PF 0.2 MG/ML SYRINGE IV PRN ×2 (15:40)
[2024-08-05] MEDS ORDERED: labetalol 20mg/4ml (5mg/ml) syringe IV PRN (15:40)
[2024-08-05] MEDS ORDERED: meperidine/PF 25mg/ml syringe IV PRN (15:40)
[2024-08-05] MEDS ORDERED: proCHLORperazine 10 MG/2 ml inj IV PRN (15:40)
[2024-08-05] MEDS ORDERED: morphine 2 MG/ML inj. syringe IV PRN (15:40)
[2024-08-05] MEDS ORDERED: cloNIDine hcl/PF 100mcg/ml inj ONE (16:04)
[2024-08-05] MEDS ORDERED: sevoflurane 250ml liquid IH ONE (16:38)
[2024-08-05] MEDS ORDERED: fentaNYL/PF 50MCG/1 ML 2ML syringe ONE (16:39)
[2024-08-05] MEDS ORDERED: midazolam 1 mg/ML 2ml injection ONE (16:39)
[2024-08-05] MEDS ORDERED: rocuronium 10mg/ml inj IV ONE (17:17)
[2024-08-05] MEDS ORDERED: vancomycin 1,000mg inj ONE (17:17)
[2024-08-05] MEDS ORDERED: propofol inj 20 ML IV ONE (17:17)
[2024-08-05] MEDS ORDERED: LIDOcaine 2% (20mg/ml) 5ml vial ONE (17:17)
[2024-08-05] MEDS ORDERED: ROPIVAcaine 0.5% (5mg/ml) 30ml vial ONE (17:17)
[2024-08-05] MEDS ORDERED: dexamethasone sod phosphate 4mg/ml inj. ONE ×2 (17:17→17:18)
[2024-08-05] MEDS ORDERED: ondansetron/PF 4mg/2ml inj ONE (17:18)
[2024-08-05] MEDS ORDERED: glycopyrrolate 0.2mg/ml inj ONE (18:11)
[2024-08-05] MEDS ORDERED: neostigmine methylsulfate 1 MG/ML 10ml vial ONE (18:11)
[2024-08-05] MEDS: ringers solution, lacted 1,000 ML IV SCH (18:39)
[2024-08-05] MEDS: acetaminophen 1,000mg/100ml IV 100 ML IV PRN (18:39)
[2024-08-05] MEDS ORDERED: naloxone 0.4 mg/ml inj IV PRN (18:40)
[2024-08-05] MEDS: atorvastatin 20mg tablet PO SCH (20:43)
[2024-08-05] MEDS: insulin glargine (Lantus) pen - multi-dose SQ SCH (21:31)
[2024-08-06 04:15] LABS: BASOPHILS % (AUTO) 0.1 % (0-1); EOSINOPHILS % (AUTO) 0 % (0-6); HEMATOCRIT 27.5 % (35.0-45.0); HEMOGLOBIN 8.4 g/dl (12.0-16.0); LYMPHOCYTES # (AUTO) 0.4 X10'3 (1.1-4.8); MEAN CORPUSCULAR HEMOGLOBIN 25.5 PG (27.0-31.0); MEAN CORPUSCULAR HGB CONC 30.7 g/dL (33.0-36.5); MEAN CORPUSCULAR VOLUME 83.1 FL (78-98); MEAN PLATELET VOLUME 8.8 FL (7.4-10.4); MONOCYTES # (AUTO) 0.1 X10'3 (0-0.9); MONOCYTES % (AUTO) 2.3 % (2-12); NEUTROPHILS # (AUTO) 4.7 X10'3 (1.8-7.7); NEUTROPHILS % (AUTO) 90.6 % (42-75); PLATELET COUNT 340 X10'3 (140-440); RED BLOOD COUNT 3.31 X10'6 (4.20-5.60); RED CELL DISTRIBUTION WIDTH 22.2 % (11.5-14.5); WHITE BLOOD COUNT 5.1 X10'3 (4.5-11.0)
[2024-08-06 04:25] LABS: ALBUMIN 2.3 G/DL (3.4-5.0); ANION GAP 6 (8-16); BLOOD UREA NITROGEN 22 MG/DL (7-18); BUN/CREATININE RATIO 25.9 (10.0-20.0); CALCIUM 8.7 MG/DL (8.5-10.1); CHLORIDE 106 MMOL/L (99-107); CREATININE 0.85 MG/DL (0.40-0.90); GLUCOSE 230 MG/DL (70-104); MAGNESIUM 1.7 MG/DL (1.5-2.4); POTASSIUM 4.6 MMOL/L (3.5-5.1); SODIUM 141 MMOL/L (135-145); TOTAL CARBON DIOXIDE 29.5 MMOL/L (24-32); eCRCL 55 ML/MIN; eGFR 70 ML/MIN
[2024-08-06 06:00] VITALS: BP 125/68; PULSE 79; RESP 16; TEMP 97.9; O2SAT 100
[2024-08-06] MEDS ORDERED: PCA WASTE DOCUMENTATION 1 MG ML MC SCH (08:00)
[2024-08-06 10:00] VITALS: BP 95/42; PULSE 91; RESP 15; TEMP 97.2; O2SAT 100
[2024-08-06] MEDS: JUVEN Smoothie Arginine/Glut./Ca2+Bmb (Juven 19.3pkt) 240ml cup PO SCH (17:54)
[2024-08-06 18:00] VITALS: BP 134/79; PULSE 82; RESP 16; TEMP 98.1; O2SAT 100
[2024-08-06] MEDS: ceFAZolin/D5W- 1GM premix 50 ML IV SCH (20:23)
[2024-08-06 22:00] VITALS: BP 122/65; PULSE 77; RESP 18; TEMP 98.1; O2SAT 100
[2024-08-07] MEDS: ceFAZolin/D5W- 1GM premix 50 ML IV SCH (03:26)
[2024-08-07 04:25] LABS: BASOPHILS % (AUTO) 0.3 % (0-1); EOSINOPHILS % (AUTO) 0.3 % (0-6); HEMOGLOBIN 15.7 g/dl (12.0-16.0); LYMPHOCYTES # (AUTO) 0.2 X10'3 (1.1-4.8); LYMPHOCYTES % (AUTO) 8.8 % (21-51); MEAN PLATELET VOLUME 8.5 FL (7.4-10.4); MONOCYTES # (AUTO) 0.1 X10'3 (0-0.9); MONOCYTES % (AUTO) 5.5 % (2-12); NEUTROPHILS # (AUTO) 2.1 X10'3 (1.8-7.7); NEUTROPHILS % (AUTO) 85.1 % (42-75); PLATELET COUNT 139 X10'3 (140-440); WHITE BLOOD COUNT 2.5 X10'3 (4.5-11.0)
[2024-08-07 04:27] LABS: ALBUMIN 2.2 G/DL (3.4-5.0); ANION GAP 3 (8-16); BLOOD UREA NITROGEN 28 MG/DL (7-18); BUN/CREATININE RATIO 26.7 (10.0-20.0); CALCIUM 8.2 MG/DL (8.5-10.1); CHLORIDE 108 MMOL/L (99-107); CREATININE 1.05 MG/DL (0.40-0.90); GLUCOSE 203 MG/DL (70-104); MAGNESIUM 1.8 MG/DL (1.5-2.4); POTASSIUM 4.8 MMOL/L (3.5-5.1); SODIUM 140 MMOL/L (135-145); eCRCL 45 ML/MIN; eGFR 55 ML/MIN
[2024-08-07 04:52] LABS: TOTAL CELLS COUNTED 100
[2024-08-07 04:59] LABS: HEMATOCRIT 49.3 % (35.0-45.0); MEAN CORPUSCULAR HEMOGLOBIN 26.1 PG (27.0-31.0); MEAN CORPUSCULAR HGB CONC 31.8 g/dL (33.0-36.5); MEAN CORPUSCULAR VOLUME 82.1 FL (78-98); RED BLOOD COUNT 6.01 X10'6 (4.20-5.60); RED CELL DISTRIBUTION WIDTH 22.4 % (11.5-14.5)
[2024-08-07 06:47] VITALS: BP 111/56; PULSE 74; RESP 16; TEMP 98.5; O2SAT 100
[2024-08-07 08:09] VITALS: RESP 12; O2SAT 100
[2024-08-07 10:00] VITALS: BP 120/63; PULSE 83; RESP 18; TEMP 97.4; O2SAT 100
[2024-08-07] MEDS: morphine 2 MG/ML inj. syringe IV PRN (10:38)
[2024-08-07 18:00] VITALS: BP 114/59; PULSE 76; RESP 16; TEMP 98.2; O2SAT 100
[2024-08-07 18:58] LABS: BASOPHILS % (AUTO) 0.4 % (0-1); EOSINOPHILS # (AUTO) 0.1 X10'3 (0-0.9); EOSINOPHILS % (AUTO) 1.5 % (0-6); HEMATOCRIT 27.5 % (35.0-45.0); HEMOGLOBIN 8.4 g/dl (12.0-16.0); LYMPHOCYTES # (AUTO) 0.9 X10'3 (1.1-4.8); LYMPHOCYTES % (AUTO) 13.6 % (21-51); MEAN CORPUSCULAR HEMOGLOBIN 25.8 PG (27.0-31.0); MEAN CORPUSCULAR HGB CONC 30.6 g/dL (33.0-36.5); MEAN CORPUSCULAR VOLUME 84.3 FL (78-98); MEAN PLATELET VOLUME 8.7 FL (7.4-10.4); MONOCYTES # (AUTO) 0.6 X10'3 (0-0.9); MONOCYTES % (AUTO) 9.7 % (2-12); NEUTROPHILS # (AUTO) 4.9 X10'3 (1.8-7.7); NEUTROPHILS % (AUTO) 74.8 % (42-75); PLATELET COUNT 426 X10'3 (140-440); RED BLOOD COUNT 3.26 X10'6 (4.20-5.60); RED CELL DISTRIBUTION WIDTH 22.9 % (11.5-14.5); WHITE BLOOD COUNT 6.5 X10'3 (4.5-11.0)
[2024-08-07 19:09] LABS: ALANINE AMINOTRANSFERASE 9 U/L (12-78); ALBUMIN 2.4 G/DL (3.4-5.0); ALBUMIN/GLOBULIN RATIO 0.6 (1.1-1.5); ALKALINE PHOSPHATASE 46 IU/L (46-116); ANION GAP 5 (8-16); ASPARTATE AMINO TRANSFERASE 9 U/L (10-37); BILIRUBIN,TOTAL 0.4 MG/DL (0.1-1.0); BLOOD UREA NITROGEN 36 MG/DL (7-18); BUN/CREATININE RATIO 29.3 (10.0-20.0); CALCIUM 8.3 MG/DL (8.5-10.1); CHLORIDE 107 MMOL/L (99-107); CREATININE 1.23 MG/DL (0.40-0.90); GLUCOSE 259 MG/DL (70-104); POTASSIUM 5.5 MMOL/L (3.5-5.1); SODIUM 138 MMOL/L (135-145); TOTAL CARBON DIOXIDE 26.5 MMOL/L (24-32); TOTAL PROTEIN 6.6 G/DL (6.4-8.2); eCRCL 38 ML/MIN; eGFR 46 ML/MIN
[2024-08-07 22:00] VITALS: BP 115/69; PULSE 83; RESP 16; TEMP 97.7; O2SAT 98
[2024-08-08] VITALS (19 sets, daily range): BP systolic 117–169; BP diastolic 56–100; PULSE 71–110; RESP 15–20; TEMP 97.3–98.3; O2SAT 91–100
[2024-08-08] MEDS ORDERED: LIDOcaine 1% 30ml preserv. free vial ONE (06:41)
[2024-08-08] MEDS ORDERED: BUPIVAcaine 2.5mg/ml inj 50ml vial (contains preservative) ONE (06:42)
[2024-08-08] MEDS ORDERED: bacitracin 15gm ointment TP ONE (06:42)
[2024-08-08 06:45] LABS: BASOPHILS % (AUTO) 0.7 % (0-1); EOSINOPHILS # (AUTO) 0.1 X10'3 (0-0.9); EOSINOPHILS % (AUTO) 2.1 % (0-6); HEMATOCRIT 27.7 % (35.0-45.0); HEMOGLOBIN 8.1 g/dl (12.0-16.0); LYMPHOCYTES # (AUTO) 0.7 X10'3 (1.1-4.8); LYMPHOCYTES % (AUTO) 12.5 % (21-51); MEAN CORPUSCULAR HEMOGLOBIN 25.7 PG (27.0-31.0); MEAN CORPUSCULAR HGB CONC 29.4 g/dL (33.0-36.5); MEAN CORPUSCULAR VOLUME 87.4 FL (78-98); MEAN PLATELET VOLUME 8.7 FL (7.4-10.4); MONOCYTES # (AUTO) 0.5 X10'3 (0-0.9); MONOCYTES % (AUTO) 9.6 % (2-12); NEUTROPHILS # (AUTO) 4.2 X10'3 (1.8-7.7); NEUTROPHILS % (AUTO) 75.1 % (42-75); PLATELET COUNT 323 X10'3 (140-440); RED BLOOD COUNT 3.17 X10'6 (4.20-5.60); RED CELL DISTRIBUTION WIDTH 23.2 % (11.5-14.5); WHITE BLOOD COUNT 5.6 X10'3 (4.5-11.0)
[2024-08-08 07:01] LABS: ALBUMIN 2.2 G/DL (3.4-5.0); ANION GAP 4 (8-16); BLOOD UREA NITROGEN 39 MG/DL (7-18); BUN/CREATININE RATIO 38.2 (10.0-20.0); CALCIUM 8.4 MG/DL (8.5-10.1); CHLORIDE 109 MMOL/L (99-107); CREATININE 1.02 MG/DL (0.40-0.90); GLUCOSE 254 MG/DL (70-104); MAGNESIUM 1.8 MG/DL (1.5-2.4); SODIUM 137 MMOL/L (135-145); TOTAL CARBON DIOXIDE 24.3 MMOL/L (24-32); eCRCL 46 ML/MIN; eGFR 57 ML/MIN
[2024-08-08 07:07] LABS: POTASSIUM 5.7 MMOL/L (3.5-5.1)
[2024-08-08 07:32] LABS: ANISOCYTOSIS 3+; PLATELET ESTIMATE NORMAL
[2024-08-08 07:33] LABS: HYPOCHROMASIA 1+
[2024-08-08] MEDS ORDERED: sevoflurane 250ml liquid IH ONE (08:07)
[2024-08-08] MEDS ORDERED: midazolam 1 mg/ML 2ml injection ONE (08:17)
[2024-08-08] MEDS ORDERED: fentaNYL/PF 50MCG/1 ML 2ML syringe ONE (08:17)
[2024-08-08] MEDS ORDERED: naloxone 0.4 mg/ml inj IV PRN (09:10)
[2024-08-08] MEDS: ringers solution, lacted 1,000 ML IV SCH (09:40)
[2024-08-08] MEDS ORDERED: ondansetron/PF 4mg/2ml inj IV PRN (09:40)
[2024-08-08] MEDS ORDERED: enalaprilat 1.25mg/ml 2ml vial IV PRN (09:40)
[2024-08-08] MEDS ORDERED: morphine 2 MG/ML inj. syringe IV PRN (09:40)
[2024-08-08] MEDS ORDERED: proCHLORperazine 10 MG/2 ml inj IV PRN (09:40)
[2024-08-08] MEDS ORDERED: morphine 4 MG/ML inj SYRINge IV PRN (09:40)
[2024-08-08] MEDS ORDERED: labetalol 20mg/4ml (5mg/ml) syringe IV PRN (09:40)
[2024-08-08] MEDS ORDERED: meperidine/PF 25mg/ml syringe IV PRN ×3 (09:40)
[2024-08-08] MEDS ORDERED: meperidine/PF 100mg/ml syringe IV PRN ×3 (09:46→09:47)
[2024-08-08] MEDS: PCA WASTE DOCUMENTATION 1 MG ML MC SCH (12:00)
[2024-08-08] MEDS: morphine 2 MG/ML inj. syringe IV PRN (17:41)
[2024-08-09 04:44] LABS: BASOPHILS % (AUTO) 0.3 % (0-1); EOSINOPHILS % (AUTO) 0 % (0-6); HEMATOCRIT 29.9 % (35.0-45.0); HEMOGLOBIN 9.1 g/dl (12.0-16.0); LYMPHOCYTES # (AUTO) 0.4 X10'3 (1.1-4.8); LYMPHOCYTES % (AUTO) 8.1 % (21-51); MEAN CORPUSCULAR HEMOGLOBIN 25.6 PG (27.0-31.0); MEAN CORPUSCULAR HGB CONC 30.5 g/dL (33.0-36.5); MEAN PLATELET VOLUME 8.6 FL (7.4-10.4); MONOCYTES # (AUTO) 0.4 X10'3 (0-0.9); MONOCYTES % (AUTO) 7.1 % (2-12); NEUTROPHILS # (AUTO) 4.3 X10'3 (1.8-7.7); NEUTROPHILS % (AUTO) 84.5 % (42-75); PLATELET COUNT 416 X10'3 (140-440); RED BLOOD COUNT 3.56 X10'6 (4.20-5.60); RED CELL DISTRIBUTION WIDTH 22.4 % (11.5-14.5); WHITE BLOOD COUNT 5.1 X10'3 (4.5-11.0)
[2024-08-09 04:55] LABS: ALBUMIN 2.5 G/DL (3.4-5.0); ANION GAP 4 (8-16); BLOOD UREA NITROGEN 32 MG/DL (7-18); BUN/CREATININE RATIO 40.5 (10.0-20.0); CALCIUM 8.6 MG/DL (8.5-10.1); CHLORIDE 106 MMOL/L (99-107); CREATININE 0.79 MG/DL (0.40-0.90); GLUCOSE 304 MG/DL (70-104); POTASSIUM 5.1 MMOL/L (3.5-5.1); SODIUM 136 MMOL/L (135-145); TOTAL CARBON DIOXIDE 26.1 MMOL/L (24-32); eCRCL 59 ML/MIN; eGFR 76 ML/MIN
[2024-08-09 06:00] VITALS: BP 164/108; PULSE 97; RESP 16; TEMP 98; O2SAT 99
[2024-08-09 08:00] VITALS: RESP 16; O2SAT 99
[2024-08-09] MEDS: carVEDilol 12.5mg tablet PO SCH (08:45)
[2024-08-09] MEDS ORDERED: hydrALAZINE 20mg/ml inj. IV PRN (09:55)
[2024-08-09 10:00] VITALS: BP 128/67; PULSE 76; RESP 18; TEMP 98; O2SAT 97
[2024-08-09 10:09] VITALS: BP 137/65; PULSE 76
[2024-08-09] MEDS: amLODIPine 5mg tablet PO ONE (10:20)
[2024-08-09] MEDS: heparin, porcine 5000 units/ml vial SQ ONE (10:21)
[2024-08-09] MEDS: INSULIN LISPRO 100 UNIT/ML INSULN.PEN MULTI-DOSE SQ SCH (12:37)
[2024-08-09 18:00] VITALS: BP 146/75; PULSE 75; RESP 16; TEMP 98.1; O2SAT 100
[2024-08-09] MEDS: insulin glargine (Lantus) pen - multi-dose SQ SCH (21:23)
[2024-08-09] MEDS: heparin, porcine 5000 units/ml vial SQ SCH (21:29)
[2024-08-09 22:00] VITALS: BP 155/82; PULSE 80; RESP 18; TEMP 97.7; O2SAT 96
[2024-08-10 06:00] VITALS: BP 148/81; PULSE 85; RESP 16; TEMP 97.8; O2SAT 96
[2024-08-10 07:45] LABS: BASOPHILS % (AUTO) 0.6 % (0-1); EOSINOPHILS # (AUTO) 0.1 X10'3 (0-0.9); HEMOGLOBIN 8.3 g/dl (12.0-16.0); LYMPHOCYTES # (AUTO) 0.8 X10'3 (1.1-4.8); LYMPHOCYTES % (AUTO) 13.5 % (21-51); MEAN CORPUSCULAR HGB CONC 30.8 g/dL (33.0-36.5); MEAN CORPUSCULAR VOLUME 84.3 FL (78-98); MEAN PLATELET VOLUME 8.5 FL (7.4-10.4); MONOCYTES # (AUTO) 0.4 X10'3 (0-0.9); NEUTROPHILS # (AUTO) 4.4 X10'3 (1.8-7.7); NEUTROPHILS % (AUTO) 77.9 % (42-75); PLATELET COUNT 385 X10'3 (140-440); RED CELL DISTRIBUTION WIDTH 22.8 % (11.5-14.5); WHITE BLOOD COUNT 5.6 X10'3 (4.5-11.0)
[2024-08-10 07:59] LABS: ALANINE AMINOTRANSFERASE 11 U/L (12-78); ALBUMIN 2.2 G/DL (3.4-5.0); ALBUMIN/GLOBULIN RATIO 0.6 (1.1-1.5); ALKALINE PHOSPHATASE 40 IU/L (46-116); ANION GAP 4 (8-16); ASPARTATE AMINO TRANSFERASE 15 U/L (10-37); BILIRUBIN,TOTAL 0.4 MG/DL (0.1-1.0); BLOOD UREA NITROGEN 28 MG/DL (7-18); BUN/CREATININE RATIO 43.1 (10.0-20.0); CALCIUM 8.4 MG/DL (8.5-10.1); CHLORIDE 108 MMOL/L (99-107); CREATININE 0.65 MG/DL (0.40-0.90); GLUCOSE 115 MG/DL (70-104); POTASSIUM 4.7 MMOL/L (3.5-5.1); SODIUM 138 MMOL/L (135-145); TOTAL CARBON DIOXIDE 25.9 MMOL/L (24-32); TOTAL PROTEIN 6.2 G/DL (6.4-8.2); eCRCL 72 ML/MIN; eGFR > 90 ML/MIN
[2024-08-10] MEDS: lisinopril 10 MG tablet PO SCH (08:00)
[2024-08-10] MEDS: amLODIPine 5mg tablet PO SCH (08:00)
[2024-08-10 10:00] VITALS: BP 98/45; PULSE 71; RESP 20; TEMP 97.9; O2SAT 97
[2024-08-10] MEDS: vancomycin/NS 1 GM ADD-VANTAGE 250 ML IV SCH (13:03)
[2024-08-10] MEDS: cephalexin 250mg capsule PO SCH (14:19)
[2024-08-10 18:00] VITALS: BP 147/68; PULSE 89; RESP 18; TEMP 97.1; O2SAT 96
[2024-08-10 22:00] VITALS: BP 164/77; PULSE 90; RESP 16; TEMP 98.1; O2SAT 92
[2024-08-11] VITALS (11 sets, daily range): BP systolic 140–190; BP diastolic 67–155; PULSE 77–120; RESP 15–20; TEMP 96.9–98.2; O2SAT 94–100
[2024-08-11 03:07] LABS: BASOPHILS # (AUTO) 0.1 X10'3 (0-0.2); BASOPHILS % (AUTO) 1.2 % (0-1); EOSINOPHILS # (AUTO) 0.1 X10'3 (0-0.9); EOSINOPHILS % (AUTO) 1.2 % (0-6); HEMATOCRIT 26.7 % (35.0-45.0); HEMOGLOBIN 8.2 g/dl (12.0-16.0); LYMPHOCYTES # (AUTO) 0.7 X10'3 (1.1-4.8); LYMPHOCYTES % (AUTO) 11.5 % (21-51); MEAN CORPUSCULAR HEMOGLOBIN 25.9 PG (27.0-31.0); MEAN CORPUSCULAR HGB CONC 30.8 g/dL (33.0-36.5); MEAN CORPUSCULAR VOLUME 84.1 FL (78-98); MEAN PLATELET VOLUME 8.3 FL (7.4-10.4); MONOCYTES # (AUTO) 0.5 X10'3 (0-0.9); MONOCYTES % (AUTO) 8.2 % (2-12); NEUTROPHILS % (AUTO) 77.9 % (42-75); PLATELET COUNT 384 X10'3 (140-440); RED BLOOD COUNT 3.18 X10'6 (4.20-5.60); RED CELL DISTRIBUTION WIDTH 23.6 % (11.5-14.5); WHITE BLOOD COUNT 6.4 X10'3 (4.5-11.0)
[2024-08-11 03:14] LABS: ALANINE AMINOTRANSFERASE 10 U/L (12-78); ALBUMIN 2.2 G/DL (3.4-5.0); ALBUMIN/GLOBULIN RATIO 0.6 (1.1-1.5); ALKALINE PHOSPHATASE 44 IU/L (46-116); ANION GAP 2 (8-16); ASPARTATE AMINO TRANSFERASE 12 U/L (10-37); BILIRUBIN,TOTAL 0.5 MG/DL (0.1-1.0); BLOOD UREA NITROGEN 28 MG/DL (7-18); BUN/CREATININE RATIO 39.4 (10.0-20.0); CALCIUM 8.2 MG/DL (8.5-10.1); CHLORIDE 109 MMOL/L (99-107); CREATININE 0.71 MG/DL (0.40-0.90); GLUCOSE 149 MG/DL (70-104); POTASSIUM 4.6 MMOL/L (3.5-5.1); SODIUM 139 MMOL/L (135-145); TOTAL CARBON DIOXIDE 28.2 MMOL/L (24-32); eCRCL 66 ML/MIN; eGFR 86 ML/MIN
[2024-08-11] MEDS ORDERED: ipratropium/albuterol 3ml nebule NEB PRN (09:00)
[2024-08-11] MEDS: VANCOMYCIN LEVEL IV ONE (11:30)
[2024-08-11] MEDS: GADOTERATE MEGLUMINE 7.5 MMOL/15 ML VIAL IV ONE (18:53)
[2024-08-11] MEDS: hydrALAZINE 20mg/ml inj. IV PRN (22:56)
[2024-08-11] MEDS: nitroGLYCERIN 0.4mg SUBLingual tab SL PRN (23:29)
[2024-08-12] VITALS (24 sets, daily range): BP systolic 99–166; BP diastolic 52–99; PULSE 71–102; RESP 14–20; TEMP 97.8–98.6; O2SAT 94–100
[2024-08-12] MEDS: furosemide 40mg/4ml inj IV ONE (01:04)
[2024-08-12 03:05] LABS: BASOPHILS # (AUTO) 0.1 X10'3 (0-0.2); EOSINOPHILS % (AUTO) 0.3 % (0-6); HEMATOCRIT 26.8 % (35.0-45.0); HEMOGLOBIN 8.5 g/dl (12.0-16.0); LYMPHOCYTES # (AUTO) 0.4 X10'3 (1.1-4.8); LYMPHOCYTES % (AUTO) 3.5 % (21-51); MEAN CORPUSCULAR HEMOGLOBIN 26.8 PG (27.0-31.0); MEAN CORPUSCULAR HGB CONC 31.7 g/dL (33.0-36.5); MEAN CORPUSCULAR VOLUME 84.4 FL (78-98); MEAN PLATELET VOLUME 8.3 FL (7.4-10.4); MONOCYTES # (AUTO) 0.5 X10'3 (0-0.9); MONOCYTES % (AUTO) 5.2 % (2-12); PLATELET COUNT 396 X10'3 (140-440); RED BLOOD COUNT 3.18 X10'6 (4.20-5.60); RED CELL DISTRIBUTION WIDTH 23.4 % (11.5-14.5)
[2024-08-12 03:18] LABS: ALANINE AMINOTRANSFERASE 10 U/L (12-78); ALBUMIN 2.4 G/DL (3.4-5.0); ALBUMIN/GLOBULIN RATIO 0.6 (1.1-1.5); ALKALINE PHOSPHATASE 46 IU/L (46-116); ANION GAP 7 (8-16); ASPARTATE AMINO TRANSFERASE 12 U/L (10-37); BILIRUBIN,TOTAL 0.7 MG/DL (0.1-1.0); BLOOD UREA NITROGEN 29 MG/DL (7-18); BUN/CREATININE RATIO 43.9 (10.0-20.0); CALCIUM 8.5 MG/DL (8.5-10.1); CHLORIDE 107 MMOL/L (99-107); CREATININE 0.66 MG/DL (0.40-0.90); GLUCOSE 171 MG/DL (70-104); POTASSIUM 4.5 MMOL/L (3.5-5.1); SODIUM 143 MMOL/L (135-145); TOTAL CARBON DIOXIDE 28.9 MMOL/L (24-32); TOTAL PROTEIN 6.4 G/DL (6.4-8.2); eCRCL 71 ML/MIN; eGFR > 90 ML/MIN
[2024-08-12] MEDS ORDERED: labetalol 20mg/4ml (5mg/ml) syringe IV ONE (06:50)
[2024-08-12] MEDS ORDERED: hydrALAZINE 20mg/ml inj. IV PRN (07:00)
[2024-08-12] MEDS: hyDRALAzine 10mg tablet PO SCH (08:10)
[2024-08-12] MEDS ORDERED: bacitracin 15gm ointment TP ONE ×2 (09:55→09:57)
[2024-08-12] MEDS ORDERED: BUPIVAcaine 2.5mg/ml inj 50ml vial (contains preservative) ONE (09:56)
[2024-08-12] MEDS ORDERED: sevoflurane 250ml liquid IH ONE (15:04)
[2024-08-12] MEDS ORDERED: fentaNYL/PF 50MCG/1 ML 2ML syringe ONE (15:07)
[2024-08-12] MEDS ORDERED: midazolam 1 mg/ML 2ml injection ONE (15:07)
[2024-08-12] MEDS ORDERED: morphine 2 MG/ML inj. syringe IV PRN (16:05)
[2024-08-12] MEDS ORDERED: morphine 4 MG/ML inj SYRINge IV PRN (16:05)
[2024-08-12] MEDS ORDERED: HYDROmorphone/PF 0.2 MG/ML SYRINGE IV PRN ×2 (16:05)
[2024-08-12] MEDS ORDERED: acetaminophen 1,000mg/100ml IV 100 ML IV PRN (16:05)
[2024-08-12] MEDS ORDERED: meperidine/PF 100mg/ml syringe IV PRN (16:05)
[2024-08-12] MEDS ORDERED: ondansetron/PF 4mg/2ml inj IV PRN (16:05)
[2024-08-12] MEDS ORDERED: propofol inj 20 ML IV ONE (16:50)
[2024-08-12] MEDS ORDERED: ondansetron/PF 4mg/2ml inj ONE (16:51)
[2024-08-12] MEDS ORDERED: rocuronium 10mg/ml inj IV ONE (16:51)
[2024-08-12] MEDS ORDERED: sugammadex 200mg/2ml injection IV ONE (16:58)
[2024-08-12] MEDS ORDERED: naloxone 0.4 mg/ml inj IV PRN (17:30)
[2024-08-13 02:00] VITALS: BP 128/76; PULSE 66; RESP 14; TEMP 98.3; O2SAT 96
[2024-08-13 06:00] VITALS: BP 132/72; PULSE 69; RESP 14; TEMP 97.9; O2SAT 100
[2024-08-13 06:16] LABS: BASOPHILS % (AUTO) 0.5 % (0-1); EOSINOPHILS # (AUTO) 0.1 X10'3 (0-0.9); EOSINOPHILS % (AUTO) 1.1 % (0-6); HEMATOCRIT 25.7 % (35.0-45.0); HEMOGLOBIN 8.1 g/dl (12.0-16.0); LYMPHOCYTES # (AUTO) 0.6 X10'3 (1.1-4.8); LYMPHOCYTES % (AUTO) 10.5 % (21-51); MEAN CORPUSCULAR HEMOGLOBIN 26.5 PG (27.0-31.0); MEAN CORPUSCULAR HGB CONC 31.4 g/dL (33.0-36.5); MEAN CORPUSCULAR VOLUME 84.5 FL (78-98); MEAN PLATELET VOLUME 8.6 FL (7.4-10.4); MONOCYTES # (AUTO) 0.5 X10'3 (0-0.9); MONOCYTES % (AUTO) 9.3 % (2-12); NEUTROPHILS # (AUTO) 4.5 X10'3 (1.8-7.7); NEUTROPHILS % (AUTO) 78.6 % (42-75); PLATELET COUNT 391 X10'3 (140-440); RED BLOOD COUNT 3.04 X10'6 (4.20-5.60); RED CELL DISTRIBUTION WIDTH 23.8 % (11.5-14.5); WHITE BLOOD COUNT 5.7 X10'3 (4.5-11.0)
[2024-08-13 06:43] LABS: ALANINE AMINOTRANSFERASE 10 U/L (12-78); ALBUMIN 2.3 G/DL (3.4-5.0); ALBUMIN/GLOBULIN RATIO 0.6 (1.1-1.5); ALKALINE PHOSPHATASE 45 IU/L (46-116); ANION GAP 4 (8-16); ASPARTATE AMINO TRANSFERASE 13 U/L (10-37); BILIRUBIN,TOTAL 0.6 MG/DL (0.1-1.0); BLOOD UREA NITROGEN 26 MG/DL (7-18); BUN/CREATININE RATIO 36.1 (10.0-20.0); CALCIUM 8.5 MG/DL (8.5-10.1); CHLORIDE 109 MMOL/L (99-107); CREATININE 0.72 MG/DL (0.40-0.90); GLUCOSE 136 MG/DL (70-104); POTASSIUM 4.1 MMOL/L (3.5-5.1); SODIUM 142 MMOL/L (135-145); TOTAL CARBON DIOXIDE 28.8 MMOL/L (24-32); eCRCL 65 ML/MIN; eGFR 85 ML/MIN
[2024-08-13] MEDS: ringers solution, lacted 1,000 ML IV SCH (07:23)
[2024-08-13 08:00] VITALS: RESP 16; O2SAT 100
[2024-08-13] MEDS: lisinopril 20mg tablet PO SCH (08:00)
[2024-08-13] MEDS: PCA WASTE DOCUMENTATION 1 MG ML MC SCH (08:00)
[2024-08-13] MEDS: labetalol 20mg/4ml (5mg/ml) syringe IV ONE (08:42)
[2024-08-13] MEDS ORDERED: LANTUS SQ (11:55)
[2024-08-13] MEDS ORDERED: LISI20TA28 PO (11:55)
[2024-08-13] MEDS ORDERED: CARV12.545 PO (11:55)
[2024-08-13] MEDS ORDERED: INSU100I8 SQ (11:55)
[2024-08-13] MEDS ORDERED: VANC1PLA9 IV (11:58)
[2024-08-13 15:19] VITALS: PULSE 82; RESP 20; O2SAT 97
[2024-08-13 16:00] VITALS: BP_SYST 106; PULSE 72
== END 2024-08-13 17:15 | DRG 314 ==
LOC: ER 13:06 → ED HOLD 16:42 → ORTHO 4S 20:47
PROVIDERS: ADMIT Internal Medicine; ATTEND Internal Medicine
PROC: 0LQN0ZZ Repair Right Lower Leg Tendon, Open Approach (ICD-10-PCS; 2024-08-05)
PROC: 3E0T3BZ Introduction of Anesthetic Agent into Peripheral Nerves and Plexi, Percutaneous Approach (ICD-10-PCS; 2024-08-05)
PROC: 3E0T33Z Introduction of Anti-inflammatory into Peripheral Nerves and Plexi, Percutaneous Approach (ICD-10-PCS; 2024-08-05)
PROC: 0QBL0ZZ Excision of Right Tarsal, Open Approach (ICD-10-PCS; principal; 2024-08-05 16:38)
PROC: 0JBQ0ZZ Excision of Right Foot Subcutaneous Tissue and Fascia, Open Approach (ICD-10-PCS; 2024-08-08)
PROC: 0LMN0ZZ Reattachment of Right Lower Leg Tendon, Open Approach (ICD-10-PCS; 2024-08-12)
PROC: 0JBQ0ZZ Excision of Right Foot Subcutaneous Tissue and Fascia, Open Approach (ICD-10-PCS; 2024-08-12)
DX: S92.061A Displaced intraarticular fracture of right calcaneus, initial encounter for closed fracture (principal); N17.0 Acute kidney failure with tubular necrosis; I21.A1 Myocardial infarction type 2; I50.23 Acute on chronic systolic (congestive) heart failure; L97.414 Non-pressure chronic ulcer of right heel and midfoot with necrosis of bone; E11.42 Type 2 diabetes mellitus with diabetic polyneuropathy; D64.9 Anemia, unspecified; N17.9 Acute kidney failure, unspecified; M86.8X7 Other osteomyelitis, ankle and foot; T81.31XA Disruption of external operation (surgical) wound, not elsewhere classified, initial encounter; E11.621 Type 2 diabetes mellitus with foot ulcer; F32.9 Major depressive disorder, single episode, unspecified; E11.69 Type 2 diabetes mellitus with other specified complication; I11.0 Hypertensive heart disease with heart failure; E11.51 Type 2 diabetes mellitus with diabetic peripheral angiopathy without gangrene; J44.9 Chronic obstructive pulmonary disease, unspecified; K21.9 Gastro-esophageal reflux disease without esophagitis; Y83.8 Other surgical procedures as the cause of abnormal reaction of the patient, or of later complication, without mention of misadventure at the time of the procedure; W18.39XA Other fall on same level, initial encounter; Y93.89 Activity, other specified; Y99.8 Other external cause status; Y92.89 Other specified places as the place of occurrence of the external cause; Z79.84 Long term (current) use of oral hypoglycemic drugs; Z79.899 Other long term (current) drug therapy; Z79.4 Long term (current) use of insulin; Z91.013 Allergy to seafood
CPT/HCPCS: 36415; 71045; 73590; 73620; 73630; 73700; 73720; 76000; 80048; 80053; 80202; 82948; 83605; 83735; 84145; 84484; 85007; 85008; 85025; 85610; 85651; 85730; 86140; 86885; 86900; 86901; 87070; 87075; 87077; 87081; 87186; 93005; 94760; 96374; 96375; 97110; 97161; 97164; 97530; 99291; A4215; A4615; A4618; A6222; A6223; A6253; A6258; A6446; A6449; A7000; C1713; G0378; J0131; J0360; J0690; J0735; J1100; J1171; J1200; J1644; J1815; J1940; J2003; J2250; J2270; J2405; J2704; J2710; J2765; J2795; J3010; J3370; J3490; J7030; J7120

== ENCOUNTER 2024-11-17 10:23 | Emergency (ER) | payer MEDICAID ==
[~2024-11-17] VITALS: Ht 154.9 cm; Wt 92.2 kg
[~2024-11-17 10:23] MED LIST changes: +CARV12.545 PO; +INSU100I8 SQ; +LANTUS SQ; +LISI20TA28 PO; +VANC1PLA9 IV
[2024-11-17 11:11] LABS: MEAN PLATELET VOLUME 9.3 FL (7.4-10.4); RED CELL DISTRIBUTION WIDTH 18.0 % (11.5-14.5)
--- NOTE | 2024-11-17 11:17 | Physician Documentation ---
History of Present Illness ~ Chief Complaint: Abdominal Pain Stated Complaint: CONSULT Time Seen by MD: 10:30 Primary Medical Doctor: [facility] Source: patient, EMS, EMS notes reviewed, long term records Mode of Arrival: EMS Exam Limitations: no limitations HPI Chief Complaint: Abdominal pain Caveat: None Independent Historians: Paramedics History of Present Illness: Patient is a 54-year-old woman who appears much older than her stated age is referred from [facility] for evaluation for possible cholecystitis/choledocholithiasis. Patient had a ultrasound yesterday that showed gallstones. Not have the official report. Patient has had abdominal pain on the right side for one week with the associated nausea and vomiting. Patient's pain is currently 7/10 in his described as being in the flank. Patient denies any fever. Patient's pain is worse with eating. Patient's pain has been getting worse over the last week. Medical records review: Per report the patient's gallbladder ultrasound yesterday showed cholelithiasis with a minimally dilated CBD at 1 cm. Normal gallbladder wall without any pericholecystic fluid Lab work yesterday showed elevated alk-phos 166, total bilirubin elevated at 1.82, AST elevated at 63, normal ALT at 28. Review of systems: All systems were reviewed and are negative except for what is indicated in the history of present illness. Past Medical History: CHF are EF (40%), type 2 diabetes, HTN, HLD, morbid obesity Past Surgical History: Left foot transmetatarsal amputation, partial right calcanectomy for osteomyelitis and diabetic foot ulcer Social History: Currently at [facility], no tobacco use, no alcohol use Medications: Reviewed as documented Nursing Notes Allergies: Reviewed as documented in Nursing Notes Medication Reconciliation Allergies: Uncoded Allergies: seafood (Allergy, Severe, 08/06/24) Pt reports throat swells after eating. Scheduled Atorvastatin Calcium* (Lipitor*), 1 TABLET PO HS, (Reported) Carvedilol (Carvedilol), 1 TAB PO Q12H, (Reported) Carvedilol (Carvedilol), 25 MG PO Q12H Empagliflozin (Jardiance), 1 TAB PO DAILY, (Reported) Fenofibrate Nanocrystallized* (Tricor*), 1 TAB PO DAILY, (Reported) Gabapentin (Neurontin), 1 CAP PO BID, (Reported) Insulin Glargine,Hum.rec.anlog (Basaglar Kwikpen U-100), 60 UNIT SQ DAILY, (Reported) Insulin Glargine,Hum.rec.anlog* (Lantus*), 25 UNIT SQ HS Insulin Lispro (Humalog), 0 UNIT SQ ACHS Lisinopril (Lisinopril), 1 TAB PO DAILY, (Reported) Lisinopril (Lisinopril), 40 MG PO DAILY Metformin Hcl (Metformin Hcl), 500 MG PO BID, (Reported) Pantoprazole Sodium (Pantoprazole Sodium), 1 TAB PO DAILY, (Reported) Semaglutide (Ozempic), 0.5 MG SUBCUT Q7D, (Reported) Sertraline Hcl* (Zoloft*), 2 TAB PO DAILY, (Reported) Vancomycin/0.9 % Sod Chloride (Vanco 1 Gram/250 ml-0.9% NaCl), 1 GM IV Q8H Scheduled PRN Nitroglycerin SL* (Nitrostat SL*), 1 TAB SL Q5MIN PRN for Chest pain Q5min PRNx3-call MD, (Reported) [Insulin], for Per Protocol, (Reported) Past Medical History Past Medical History: Peripheral Neuropathy, UTI, Diabetes, Chronic Pain, Chronic Back Pain Past Surgical History: no surgical history Patient History: FH: breast cancer GRANDFATHER OR GRANDMOTHER, Name: Grandmother, Onset:40's - 50 FH: diabetes mellitus FATHER MOTHER FAMILY/OTHER, Name: Brother FH: heart attack FATHER, Onset:60 years & older GRANDFATHER OR GRANDMOTHER, Name: Grandfather, Onset:60 years & older Review of Systems All Other Systems at this time: Reviewed and Negative ROS Patient denies any other acute symptoms other than above. All other systems are negative Physical Exam Vital Signs: RN Vital Signs have been reviewed: Yes, Temperature: 98.3, Source: Oral, Heart Rate: 85, Respiratory Rate: 18, BP: 145/67, Pulse Oximetry: 98, Weight: 92.200 Oxygen Flow Rate: 1.0 Pulse Oximetry Reflects: adequate oxygenation Physical Exam General Appearance: Mild distress, acutely and chronically ill-appearing, morbidly obese HEENT: Normal OP, moist oral mucosa, PERRL, EOMI Neck: supple, normal ROM, trachea midline Pulmonary: No respiratory distress, CTA, BS equal Cardiac: RRR, no murmur, rub or gallop, GI: nondistended, soft, right upper quadrant tenderness, normal bowel sounds, no guarding, no rebound Extremities: normal ROM, no swelling, non-tender Skin: intact, dry, warm, no rashes Neuro: AAOx3, speech is clear, no focal motor weakness Psych: normal affect, good eye contact, no apparent hallucination, normal speech Progress Results/Orders Results/Orders Orders - ABEBE COLLIER MD Ultrasound Of Abdomen (11/17/24 11:45) Cult Urine + [address] (11/17/24 11:48) Fill Out Med Reconciliation (11/17/24 13:32) MRCP (11/17/24 17:00) Completed Orders - ABEBE COLLIER MD Hcg, Ur Ql (11/17/24 10:29) Cbc/Diff (11/17/24 10:29) BMP (11/17/24 10:29) Lipase (11/17/24 10:29) CMP (11/17/24 10:29) Ua W/Microscopic, Cult If Ind (11/17/24 11:15) Ultrasound Of Abdomen (11/17/24 11:45) Potassium Cl Sr Tablet (K-Dur Tablet) (11/17/24 12:09) Ceftriaxone/A6a-Rqjvtnos 1gm (Rocephin 1 (11/17/24 13:35) MRCP (11/17/24 17:00) Medications Received in ER Medications (Trade) Dose Ordered Sig/Miladys Route PRN Reason Start Time Stop Time Status Last Admin Dose Admin (Zofran 4mg/2ml vial) 4 mg ONCE ONCE IV 11/18/24 00:35 11/18/24 00:37 DC 11/18/24 01:14 4 MG (VERSED 1 MG/ML 2 ML inj.) 1 mg ONCE ONCE IV 11/18/24 01:45 11/18/24 01:47 DC 11/18/24 01:56 1 MG Vital Signs 11/17/24 11/17/24 11/17/24 11/17/24 10:24 10:34 12:22 13:06 Temp 98.3 98.3 Pulse 85 89 81 Resp 16 18 18 18 B/P (MAP) 145/67 145/72 (96) 142/73 (96) Pulse Ox 98 98 99 O2 Flow Rate 1.0 1.0 0 11/17/24 11/17/24 11/17/24 11/17/24 13:55 16:52 19:23 19:26 Temp 98.3 98.3 Pulse 82 88 94 Resp 18 13 14 16 B/P (MAP) 153/72 (99) 159/63 (95) 147/60 (89) Pulse Ox 99 98 100 O2 Flow Rate 0 0 1.0 11/17/24 11/17/24 11/18/24 21:40 23:34 01:42 Pulse 92 94 95 Resp 16 16 16 B/P (MAP) 145/71 (95) 135/72 (93) 131/78 (95) Pulse Ox 91 99 98 O2 Flow Rate 0 0 0 Laboratory Tests Test 11/17/24 10:52 11/17/24 11:15 White Blood Count 5.0 Red Blood Count 3.99 L Hemoglobin 10.9 L Hematocrit 33.2 L Mean Corpuscular Volume 83.2 Mean Corpuscular Hemoglobin 27.3 Mean Corpuscular Hemoglobin Concent 32.8 L Red Cell Distribution Width 18.0 H Platelet Count 328 Mean Platelet Volume 9.3 Neutrophils (%) (Auto) 70.2 Lymphocytes (%) (Auto) 17.0 L Monocytes (%) (Auto) 8.1 Eosinophils (%) (Auto) 3.9 Basophils (%) (Auto) 0.8 Neutrophils # (Auto) 3.5 Lymphocytes # (Auto) 0.9 L Monocytes # (Auto) 0.4 Eosinophils # (Auto) 0.2 Basophils # (Auto) 0.0 CBC Comment Sodium Level 141 Potassium Level 3.0 *L Chloride Level 99 Carbon Dioxide Level 30.9 Anion Gap 11 Blood Urea Nitrogen 21 H Creatinine 1.13 H Estimated GFR/1.73 m2 50 BUN/Creatinine Ratio 18.6 Glucose Level 194 H Calcium Level 9.1 Total Bilirubin 1.0 Aspartate Amino Transf (AST/SGOT) 30 Alanine Aminotransferase (ALT/SGPT) 23 Alkaline Phosphatase 180 H Total Protein 7.1 Albumin 2.8 L Globulin 4.3 Albumin/Globulin Ratio 0.7 L Lipase 27 Chemistry Comments Urine Specimen Description Voided Urine Color Yellow Urine Clarity Clear Urine pH 5.5 Urine Specific [place] 1.015 Urine Protein 100 H Urine Glucose (UA) >=1000 H Urine Ketones Negative Urine Occult Blood Large H Urine Nitrite Negative Urine Bilirubin Negative Urine Urobilinogen 0.2 Urine Leukocyte Esterase Negative Urine RBC 20-50 Urine WBC 10-20 H Urine WBC Clumps Few Urine Squamous Epithelial Cells Few Urine Transitional Epithelial Cells Moderate Urine Bacteria Few Urine Yeast Moderate Urine Culture Indicated Indicated Volume Urine Centrifuged 10 ml Urine HCG, Qualitative Negative Urine Comment Microbiology Date/Time Source Procedure Growth Status 11/17/24 11:48 Urine Voided Urine Culture - Preliminary Culture received. Resulted Medical Decision Making Findings Differential diagnosis includes but is not limited to: Acute cholecystitis, choledocholithiasis, biliary colic, acute pancreatitis Abdominal ultrasound, indication: Gallstones Impression: Coarsened liver echotexture suggestive of chronic liver disease. Hepatomegaly. Cholelithiasis without sonographic evidence of acute cholecystitis. Laboratory data independent interpretation: CBC: Moderate anemia with a hemoglobin of 10.9, normal WBC of 5 CMP: Mild hypokalemia with a potassium of three, BUN and creatinine are mildly elevated at 21 and 1.13. LFTs are normal except for a mildly elevated alk-phos of 180. Urinalysis: WBC 10-20, RBC 20-50, few squamous epithelial cells, few bacteria, nitrite negative Emergency department course/medical decision-making: Patient presents with worsening abdominal pain over one week and evidence of cholelithiasis with some mildly elevated LFTs. However the LFTs here today appear to have improved except for the alk-phos has gone up to 188 and the AST ALT and total bilirubin have normalized. MRCP will be ordered for further evaluation of possible choledocholithiasis. Patient's common bile duct yesterday was 10 mm and today it is 9 mm. I do not suspect choledocholithiasis however this will need to be ruled out since we do not have GI coverage. Therefore MRCP has been ordered. 6:10 p.m.: MRI results are still pending. Care the patient transferred to Dr. Pride for final disposition. Dr. Pride receiving care of patient: MRI came back with choledocholithiasis. Liver enzymes reassuring. No elevation of white blood cell count. Sea administered spoke to surgery about case who recommends transfer for GI consultation and likely intervention as we do not have GI services at our facility at this time. Consultation/communications: Departure Disposition: 51 HOSPICE/MEDICAL FACILITY Impression: Primary Impression: Cholelithiasis with choledocholithiasis Condition: Guarded Referrals: NO PRIMARY CARE PROVIDER (PCP) Signature Scribe Signature: No scribe Attestation: The note accurately reflects work and decisions made by me.Ned Pride MD 11/17/24 19:15 No scribe ABEBE COLLIER MD Nov 17, 2024 11:17 NED PRIDE MD Nov 17, 2024 19:15
[2024-11-17 11:25] LABS: CREATININE 1.13 MG/DL (0.40-0.90); TOTAL CARBON DIOXIDE 30.9 MMOL/L (24-32); eCRCL 43 ML/MIN; eGFR 50 ML/MIN
[2024-11-17 11:37] LABS: URINE HCG NEGATIVE (NEG)
[2024-11-17 11:38] LABS: LEUKOCYTE ESTERASE ,URINE NEGATIVE (Neg); NITRITES, URINE NEGATIVE (Neg); OCCULT BLOOD,URINE LARGE (Neg)
[2024-11-17 11:40] LABS: UA COLLECTION TYPE VOIDED
[2024-11-17 11:43] LABS: SQUAMOUS EPITHELIAL CELL,UR FEW /LPF (FEW)
[2024-11-17 11:45] LABS: WBC CLUMPS,URINE FEW /HPF (NEGATIVE); YEAST MODERATE /HPF (NEGATIVE)
[2024-11-17] MEDS: potassium Cl 20 mEq SR tablet PO STA (12:20)
--- NOTE | 2024-11-17 13:10 | RADIOLOGY REPORT ---
INDICATION: Abdominal Pain R/O Gallbladder TECHNIQUE: Multiple real-time sonographic images of the abdomen were obtained. COMPARISON: None FINDINGS: Evaluation is limited due to obscuration from bowel gas. The liver is coarsened in echogenicity. The liver measures 19 cm. No intrahepatic biliary ductal dil atation is noted. The gallbladder wall measures 0.2 cm and is unremarkable. Gallstones. The common duct measures 0.9 cm and is unremarkable. No pericholecystic fluid is noted. The right kidney measures 12.7 cm. No hydronephrosis. The pancreas is not well visualized due to obscuration from bowel gas. The visualized portions of the IVC and aorta are grossly unremarkable. IMPRESSION: Coarsened liver echotexture suggestive of chronic liver disease. Hepatomegaly. Cholelithiasis without sonographic evidence of acute cholecystitis.
[2024-11-17] MEDS: CefTRIAXone/D5W-Rocephin 1gm 50 ML IV ONE (13:54)
[2024-11-17 16:52] VITALS: TEMP 98.3
--- NOTE | 2024-11-17 18:48 | RADIOLOGY REPORT ---
PROCEDURE: MR MRCP Indication: gallstones, rule out choledocholelithiasis COMPARISON: None TECHNIQUE: Multiplanar multisequence images of the abdomen are obtianed per MRCP protocol. FINDINGS: Cholelithiasis. Adrenal shape. Spleen measures 13 cm AP. Pancreas unremarkable in shape. Liver unremarkable in shap e. Hepatic steatosis. CBD measures 8 mm. Distal CBD calculus measuring 5 mm. The intrahepatic ducts m easure up to 8 mm. No hydronephrosis. Stomach is partially distended. Small pericardial effusion. IMPRESSION: Cholelithiasis and choledocholithiasis. Distal CBD calculus measuring 4 mm. Dilatation of the intra hepatic ducts up to 8 mm dilatation of the CBD up to 8 mm Hepatic steatosis Splenomegaly Small pericardial effusion.
[2024-11-17] MEDS: ondansetron/PF 4mg/2ml inj IV ONE (19:22)
[2024-11-17] MEDS: morphine 4 MG/ML inj SYRINge IV ONE (19:23)
[2024-11-17] MEDS: normal saline 1000ml 1,000 ML IV ONE (19:23)
[2024-11-18] MEDS: ondansetron/PF 4mg/2ml inj IV ONE (01:14)
[2024-11-18 01:42] VITALS: BP 131/78; PULSE 95; RESP 16; O2SAT 98
[2024-11-18] MEDS: midazolam 1 mg/ML 2ml injection IV ONE (01:56)
== END 2024-11-18 02:25 | disposition hospice, inpatient (51) ==
LOC: ER 10:23
DX: K80.70 Calculus of gallbladder and bile duct without cholecystitis without obstruction (principal); E11.42 Type 2 diabetes mellitus with diabetic polyneuropathy; E11.621 Type 2 diabetes mellitus with foot ulcer; I11.0 Hypertensive heart disease with heart failure; I50.9 Heart failure, unspecified; E78.5 Hyperlipidemia, unspecified; E87.6 Hypokalemia
CPT/HCPCS: 36415; 74181; 76700; 80053; 81001; 81025; 83690; 85025; 87088; 96361; 96365; 96375; 96376; 99285; J0696; J2250; J2270; J2405; J7030

== ENCOUNTER 2025-01-06 05:07 | Inpatient (IN) | payer MEDICAID ==
[~2025-01-06] VITALS: Ht 154.9 cm; Wt 100.0 kg
[2025-01-06] VITALS (9 sets, daily range): BP systolic 119–170; BP diastolic 36–82; PULSE 86–103; RESP 15–19; TEMP 96–98; O2SAT 88–95
--- NOTE | 2025-01-06 05:18 | ELECTROCARDIOGRAPH REPORT ---
[facility] Test Date: 2025-01-06 Test Time: 05:13:09 Pat Name: EVANGELINA BECKFORD Department: EMERGENCY ROOM Room: [place] [address] Gender: F [employer] Fire[employer]: YESSI : 1970 Requested By: ISABELLA SHERIFF Order Number: [id number] Reading MD: Dr. Jeremías Guzman Measurements Intervals [place] Rate: 109 P: 63 [place]: 136 QRS: 68 QRSD: 146 T: -66 QT: 366 QTc: 494 Interpretive Statements Sinus tachycardia Sinus pause Probable left ventricular hypertrophy Inferior infarct, age indeterminate Anterior Q waves, possibly due to LVH Electronically Signed On 01-13-2025 18:49:[address] Jeremías Guzman Please click the below link to view image of tracing.
--- NOTE | 2025-01-06 05:21 | Physician Documentation ---
History of Present Illness ~ Chief Complaint: Shortness of Breath Stated Complaint: SHORT OF BREATH Time Seen by MD: 05:16 Primary Medical Doctor: [facility] Mode of Arrival: EMS HPI Patient presents to the emergency room for evaluation of shortness of breath acute onset proximally 2 hours prior to arrival. No prior instances. Patient reports history of COPD. Patient had recent BKA performed of her right lower extremity secondary to infection in her foot. She does have diabetes. She was just sent home from rehab facility two days ago. She is getting help by family at [facility]. Medication Reconciliation Allergies: Uncoded Allergies: seafood (Allergy, Severe, 08/06/24) Pt reports throat swells after eating. Scheduled Ascorbic Acid* (Vitamin C*), 1 TAB PO DAILY, (Reported) Atorvastatin Calcium* (Lipitor*), 1 TABLET PO HS, (Reported) Bisacodyl (Dulcolax), 2 TAB PO DAILY, (Reported) Carvedilol (Coreg), 1 TAB PO Q12H, (Reported) Empagliflozin (Jardiance), 1 TAB PO DAILY, (Reported) Fenofibrate Nanocrystallized* (Tricor*), 1 TAB PO DAILY, (Reported) Gabapentin (Neurontin), 1 CAP PO BID, (Reported) Insulin Glargine,Hum.rec.anlog* (Lantus*), 10 UNITS SUBCUT HS, (Reported) Lisinopril (Lisinopril), 1 TAB PO DAILY, (Reported) Metformin Hcl (Metformin Hcl), 500 MG PO BID, (Reported) Pantoprazole Sodium (Pantoprazole Sodium), 1 TAB PO DAILY, (Reported) Polyethylene Glycol 3350* (Miralax*), 1 PKT PO DAILY, (Reported) Semaglutide (Ozempic), 0.5 MG SUBCUT Q7D, (Reported) Sennosides/Docusate Sodium (Senna-S 8.6-50 mg Tablet), 2 TAB PO HS, (Reported) Sertraline Hcl* (Zoloft*), 2 TAB PO DAILY, (Reported) Tramadol HCl (Tramadol HCl), 1 TAB PO q8h prn, (Reported) Scheduled PRN Nitroglycerin SL* (Nitrostat SL*), 1 TAB SL Q5MIN PRN for Chest pain Q5min PRNx3-call MD, (Reported) Oxycodone Hcl/Acetaminophen 5/325 MG* (Percocet 5/325 MG*), 1 TAB PO Q12H PRN PRN for pain, (Reported) Miscellaneous Medications Insulin Lispro (Insulin Lispro Kwikpen U-100), (Reported) Discontinued Medications Carvedilol (Carvedilol), 1 TAB PO Q12H, (Reported) Discontinued Reason: completed med therapy Carvedilol (Carvedilol), 25 MG PO Q12H Discontinued Reason: patient no longer taking Insulin Glargine,Hum.rec.anlog (Basaglar Kwikpen U-100), 60 UNIT SQ DAILY, (Reported) Discontinued Reason: patient no longer taking Insulin Glargine,Hum.rec.anlog* (Lantus*), 25 UNIT SQ HS Discontinued Reason: patient no longer taking Insulin Lispro (Humalog), 0 UNIT SQ ACHS Discontinued Reason: patient no longer taking Lisinopril (Lisinopril), 40 MG PO DAILY Discontinued Reason: ADR (Adverse Drug Rxn) Vancomycin/0.9 % Sod Chloride (Vanco 1 Gram/250 ml-0.9% NaCl), 1 GM IV Q8H Discontinued Reason: patient no longer taking [Insulin], for Per Protocol, (Reported) Discontinued Reason: patient no longer taking Past Medical History Past Medical History: Peripheral Neuropathy, UTI, Diabetes, Chronic Pain, Chronic Back Pain Past Surgical History: no surgical history Patient History: FH: breast cancer GRANDFATHER OR GRANDMOTHER, Name: Grandmother, Onset:40's - 50 FH: diabetes mellitus FATHER MOTHER FAMILY/OTHER, Name: Brother FH: heart attack FATHER, Onset:60 years & older GRANDFATHER OR GRANDMOTHER, Name: Grandfather, Onset:60 years & older Review of Systems ROS All review of systems negative except as per HPI Physical Exam Vital Signs: Temperature: 97.8, Source: Oral, Heart Rate: 117, Respiratory Rate: 12, BP: 174/94, Pulse Oximetry: 96, Weight: 100.000 Oxygen Flow Rate: 0 Physical Exam General: Patient is awake, alert, oriented x4, anxious Head: Normocephalic and atraumatic. Eyes: Conjunctival normal. EOMI. PERRL. ENT: Mucous membranes moist. Neck: Supple, trachea is midline. Chest: Clear to auscultation bilaterally without rales, rhonchi, or wheezes. There is no accessory muscle use or retractions. Cardiac: Tachycardic and regular without murmurs, gallops, or rubs. Extremities: Right BKA noted with dressing clean dry and intact Progress Results/Orders Results/Orders Orders - NED PRIDE MD Chest,Single View (01/06/25 05:40) Monitor (01/06/25 05:16) Completed Orders - NED PRIDE MD Electrocardiogram (01/06/25 05:16) Cbc/Diff (01/06/25 05:16) Chest,Single View (01/06/25 05:40) PBNP (01/06/25 05:16) BMP (01/06/25 05:16) Hs Troponin I W Calculations (01/06/25 05:16) Hs Troponin I W Calculations (01/06/25 07:16) Hs Troponin I W Calculations (01/06/25 08:16) Midazolam 5 Mg/Ml 2ml Inj (Versed 5 Mg/M (01/06/25 05:50) Midazolam 5 Mg/Ml 2ml Inj (Versed 5 Mg/M (01/06/25 05:55) Vital Signs 01/06/25 01/06/25 01/06/25 01/06/25 05:09 05:15 05:19 06:12 Temp 97.8 Pulse 117 110 110 Resp 20 12 22 18 B/P (MAP) 174/94 150/80 (103) Pulse Ox 96 97 96 O2 Flow Rate 2.0 2.0 01/06/25 01/06/25 01/06/25 06:20 07:21 08:15 Pulse 113 108 Resp 20 22 B/P (MAP) 184/92 (122) 171/98 (122) Pulse Ox 98 97 O2 Flow Rate 2.0 Laboratory Tests Test 01/06/25 05:40 01/06/25 07:19 01/06/25 08:29 White Blood Count 7.9 Red Blood Count 3.24 L Hemoglobin 8.7 L Hematocrit 26.9 L Mean Corpuscular Volume 82.8 Mean Corpuscular Hemoglobin 26.8 L Mean Corpuscular Hemoglobin Concent 32.3 L Red Cell Distribution Width 17.5 H Platelet Count 534 H Mean Platelet Volume 8.5 Neutrophils (%) (Auto) 88.2 H Lymphocytes (%) (Auto) 6.8 L Monocytes (%) (Auto) 4.6 Eosinophils (%) (Auto) 0.1 Basophils (%) (Auto) 0.3 Neutrophils # (Auto) 7.0 Lymphocytes # (Auto) 0.5 L Monocytes # (Auto) 0.4 Eosinophils # (Auto) 0.0 Basophils # (Auto) 0.0 CBC Comment Sodium Level 140 Potassium Level 4.4 Chloride Level 104 Carbon Dioxide Level 20.9 L Anion Gap 15 Blood Urea Nitrogen 39 H Creatinine 1.15 H Estimated GFR/1.73 m2 49 BUN/Creatinine Ratio 33.9 H Glucose Level 181 H Calcium Level 8.8 Troponin I High Sensitivity 58 *H 63 *H 66 *H Pro-B-Type Natriuretic Peptide > 98741 H Albumin 2.5 L Chemistry Comments Troponin I High Sens Percent Delta 8 4 Troponin I Hi Sens Absolute Change 5 3 EKG/XRAY/CT/US/VASC/MRI EKG : Additional Comment EKG interpreted by myself shows time of 0513, rate 109, sinus tachycardia, normal axis, no ST changes Medical Decision Making Findings Patient presented to the emergency room with shortness of breath and chest pain. She is requiring oxygen supplementation. Differentials include but are not limited to ACS, CHF exacerbation, COPD exacerbation, panic attack therefore emergent labs and imaging indicated. Workup consistent with CHF exacerbation. Mild elevation of patient's troponin noted however I believe this is secondary to demand ischemia. No ST elevation seen on EKG. Departure Admitted to Inpatient Unit: yes, to hospitalist Impression: Primary Impression: CHF exacerbation Additional Impressions: Respiratory failure Elevated troponin Referrals: NO PRIMARY CARE PROVIDER (PCP) Critical Care Note Total Time (mins): 56 Critical Care Note The very real possibility of a deterioration of this patient's condition r equired the highest level of my preparedness for sudden, emergent intervention. I provided critical care services, which included medication orders, frequent reevaluations of the patient's condition and response to treatment, ordering and reviewing test results, and discussing the case with various consultants. Excludes time spent performing separately billable procedures. The critical care time associated with the care of the patient was 56 minutes not counting procedures Signature Scribe Signature: No scribe Attestation: The note accurately reflects work and decisions made by me.Ned Pride MD 01/06/25 21:26 NED PRIDE MD Jan 06, 2025 05:21
[2025-01-06] MEDS ORDERED: MIDAZolam 1 MG/ML 5ML VIAL IV ONE (05:25)
[2025-01-06] MEDS ORDERED: MIDAZolam 5mg/ml 2ml vial IV ONE (05:50)
[2025-01-06] MEDS: MIDAZolam 5mg/ml 2ml vial IV ONE (05:57)
[2025-01-06 06:04] LABS: MEAN PLATELET VOLUME 8.5 FL (7.4-10.4); RED CELL DISTRIBUTION WIDTH 17.5 % (11.5-14.5)
[2025-01-06 06:15] LABS: CREATININE 1.15 MG/DL (0.40-0.90); TOTAL CARBON DIOXIDE 20.9 MMOL/L (24-32); eCRCL 43 ML/MIN; eGFR 49 ML/MIN
[2025-01-06 06:28] LABS: PRO BRAIN NATRIURETIC PEPTIDE > 30000 PG/ML (0-125)
--- NOTE | 2025-01-06 06:29 | RADIOLOGY REPORT ---
CHEST RADIOGRAPH Indication: SOB Technique: Single frontal view of the chest was obtained Comparison: DI CHEST,SINGLE VIEW on DOS: 10/04/24 FINDINGS: Lines and Tubes: None Lungs: Diffuse bilateral pulmonary opacities noted, overall decreased. Pleura: No effusion. No pneumothorax. Cardiomediastinal contours: Cardiomegaly Bones: No acute osseous abnormality. IMPRESSION: 1. Diffuse bilateral pulmonary opacities noted, overall decreased.
[2025-01-06] MEDS ORDERED: CARV3.12 PO (06:56)
[2025-01-06] MEDS ORDERED: VITC500T PO (06:56)
[2025-01-06] MEDS ORDERED: LANTUS SUBCUT (06:56)
[2025-01-06] MEDS ORDERED: POLY17PO10 PO (06:56)
[2025-01-06] MEDS ORDERED: PER5325T PO (06:56)
[2025-01-06] MEDS ORDERED: SENN-294 PO (06:56)
[2025-01-06] MEDS ORDERED: INSU100I61 (06:56)
[2025-01-06] MEDS ORDERED: BISA-155 PO (07:01)
[2025-01-06] MEDS ORDERED: TRAM50TA2 PO (07:01)
[2025-01-06] MEDS ORDERED: carvedilol 6.25mg tablet PO SCH (08:30)
[2025-01-06] MEDS: furosemide 10 MG/1 ML 10ml inj IV ONE (08:35)
[2025-01-06] MEDS: midazolam 1 mg/ML 2ml injection IV ONE (09:59)
[2025-01-06] MEDS ORDERED: mag hydrox/Alum hydrox/simeth 30ml oral suspension PO PRN (11:00)
[2025-01-06] MEDS ORDERED: potassium Cl 40MEQ/1/2NS 520ml 520 ML IV PRN (11:00)
[2025-01-06] MEDS ORDERED: magnesium sulf-water 2g/50mL 50 ML IV PRN (11:00)
[2025-01-06] MEDS ORDERED: magnesium sulf-water 4G/100mL 100 ML IV PRN (11:00)
[2025-01-06] MEDS ORDERED: magnesium hydroxide 30ml (MOM) UD suspension PO PRN (11:00)
[2025-01-06] MEDS ORDERED: magnesium Cl slow-release 64mg tablet PO PRN (11:00)
[2025-01-06] MEDS: oxyCODONE/APAP 5-325mg tablet PO PRN (13:25)
[2025-01-06] MEDS ORDERED: DEXTROSE 15 GM of carb/4 tabs (each vial/BOTTLE has 4 tablets) PO PRN ×2 (14:40)
[2025-01-06] MEDS ORDERED: dextrose 50%-water 50ml dispensing syringe IV PRN ×2 (14:40)
[2025-01-06] MEDS ORDERED: glucagon, human recombinant 1mg kit SUBCUT PRN (14:40)
[2025-01-06] MEDS: INSULIN LISPRO 100 UNIT/ML INSULN.PEN MULTI-DOSE SQ SCH (17:36)
--- NOTE | 2025-01-06 17:56 | HISTORY AND PHYSICAL-Residence ---
History & Physical Providers to CC Resident Creating Document: MARY WISEMAN, RES CC: MICHEAL BRYANT MD ~ History of Present Illness Primary Medical Doctor: [facility] Reason for Admit\\Complaint: Shortness of breaths History of Present Illness A 54-year-old female with PMH of heart failure, HTN, sarcoidosis, DM, diabetes mellitus with foot ulcers (MRSA) status post right AKA and left TMA presented to the ED in view of shortness of breaths that started this morning. Patient states that shortness of breaths pros present at rest, unable to explain her previous mobility and shortness of breaths associated with it. Patient is not on home oxygen. Patient also complains of phantom leg pain in the right lower extremity. Patient complains of sharp chest pain that has present in the left side with a severity of 8/10 nonradiating with no aggravating or relieving factors. Patient denies palpitations, dizziness, LOC. Patient was initially transferred to [facility] and later discharged to rehab in [place] after right AKA. She was released from the rehab just yesterday. Patient is still has mikhail from recent AKA that needs to be taken out on 01/11 Allergies: Uncoded Allergies: seafood (Allergy, Severe, 08/06/24) Pt reports throat swells after eating. Home Medications Home Medications Active Reported Tramadol HCl 50 Mg Tablet 1 Tab PO Q8H PRN 7 Days Dulcolax (Bisacodyl) 5 Mg Tablet.dr 2 Tab PO DAILY 1 Days Percocet 5/325 MG* (Oxycodone/Acetaminophen) 5 Mg/325 Mg Tablet 1 Tab PO Q12H PRN PRN 30 Days Insulin Lispro Kwikpen U-100 (Insulin Lispro) 100 Unit/Ml Insuln.pen Lantus* (Insulin Glargine) 100 Unit/1 Ml Vial 10 Units SUBCUT HS 30 Days Vitamin C* (Ascorbic Acid) 500 Mg Tablet 1 Tab PO DAILY 30 Days Senna-S 8.6-50 mg Tablet (Sennosides/Docusate Sodium) 8.6 Mg-50 Mg Tablet 2 Tab PO HS 14 Days Miralax* (Polyethylene Glycol) 1 Packet Packet 1 Pkt PO DAILY 2 Days dissolve in water Coreg (Carvedilol) 3.125 Mg Tablet 1 Tab PO Q12H 30 Days Ozempic (Semaglutide) 1 Mg/0.75 Ml (4 Mg/3 Ml) Pen.injctr 0.5 Mg SUBCUT Q7D PT STATED "i TAKE HALF A MILLIGRAM" Neurontin (Gabapentin) 300 Mg Capsule 1 Cap PO BID 30 Days Pantoprazole Sodium 40 Mg Tablet.dr 1 Tab PO DAILY 30 Days Zoloft* (Sertraline HCl) 25 Mg Tablet 2 Tab PO DAILY 30 Days Tricor* (Fenofibrate) 145 Mg Tablet 1 Tab PO DAILY 30 Days Lisinopril 10 Mg Tablet 1 Tab PO DAILY 30 Days Lipitor* (Atorvastatin Calcium) 20 Mg Tablet 1 Tablet PO HS Nitrostat SL* (Nitroglycerin) 0.4 Mg Tablet 1 Tab SL Q5MIN PRN Jardiance (Empagliflozin) 10 Mg Tablet 1 Tab PO DAILY 30 Days Metformin Hcl 500 Mg Tablet 500 Mg PO BID Past Medical History Past Medical History Diabetes mellitus Congestive heart failure HTN COPD Asthma Sarcoidosis Stent in the gallbladder Diabetic foot ulcers with MRSA sepsis Past Surgical History Surgical History Comment Cholecystectomy MELIDA of right lower extremity in September 2024 TMA in Apr 2023 Family History Family History: FH: breast cancer GRANDFATHER OR GRANDMOTHER, Name: Grandmother, Onset:40's - 50 FH: diabetes mellitus FATHER MOTHER FAMILY/OTHER, Name: Brother FH: heart attack FATHER, Onset:60 years & older GRANDFATHER OR GRANDMOTHER, Name: Grandfather, Onset:60 years & older Past Social History Social History Comment Quit smoking 20 years ago, smoked for 20 years half pack a day Occasional alcohol consumption IV meth until seven years ago Recently discharged from rehab in [place] Primary care: [facility], [place] ROS ROS Constitutional: No fever, chills, dizziness, weight gain or loss Eyes: No pain, erythema, discharge, blurring of vision ENT: No sore throat, epistaxis, tinnitus Cardiovascular: reports Shortness of breath. Chest pressure, chest discomfort, palpitations, syncope, lower extremity edema, paroxysmal nocturnal dyspnea Respiratory: Shortness of breath and cough present, No hemoptysis Gastrointestinal: Normal appetite. No nausea, vomiting, diarrhea, constipation, hematemesis, abdominal pain, bloating, melena or fresh blood Musculoskeletal: Right AKA, left MTA Integumentary: No change in skin, hair, nails. No swelling, bruising, abrasions Neurologic: No headache, neck pain, numbness or tingling of the extremities, weakness Psychiatric: No delusions, depression, loss of interest in normal activity or change in sleep pattern, hallucinations, suicidal ideations Endocrine: No fatigue, weakness, polydipsia, polyuria, change in appetite, heat or cold intolerance, sweating, dry skin Exam Vitals: Vital Signs Date Time Temp Pulse Resp B/P (MAP) Pulse Ox O2 Delivery O2 Flow Rate FiO2 01/06/25 15:00 96.7 97 17 122/44 (70) 92 Room Air 01/06/25 11:59 0 21 General: General: Morbidly obese middle-aged woman, Alert, awake, oriented, not in acute distress HEENT: PERRLA, no icterus, pallor, lymphadenopathy, carotid bruit Respiratory system: Bilateral vesicular breath sounds heard, mild bilateral basal Creps on the posterior lower lung lesions CVS: S1-S2 heard, no murmurs/rubs/gallop GI: Multiple abdominal striae, with right horizontal surgical scar, Soft, nontender, no organomegaly, no guarding/rigidity, bowel sounds present Neuro: No focal neurological deficits present Extremities: No edema cyanosis clubbing/deformities Musculoskeletal: Right AKA in dressing, left MTP (all toes) Skin: Warm and dry Psych: Normal mood and affect Diagnostic Data Last Recorded Lab Results: 01/06/25 0540 01/06/25 0540 Advance Care Planning Advanced Care plannin - 30 Minutes (I spent 20 minutes discussing various resuscitative measures and the patient decided to be full code) Additional Plan Assessment: A 54-year-old female with multiple medical comorbidities presented to the ED in view of acute onset of shortness of breaths. Patient is admitted for the evaluation management of acute hypoxemic respiratory failure probably secondary to acute CHF exacerbation. Plan: Acute hypoxemic respiratory failure 2/2 acute CHF exacerbation with reduced ejection fraction, EF: 35-40% Elevated proBNP Echo in September: LVEF is 35-40%.chordal calcification madi on PMVL without stenosis Chest x-ray: Diffuse bilateral pulmonary opacities noted, overall decreased. GDM T: Lisinopril 10 mg p.o. daily, Jardiance 10 mg p.o. daily, carvedilol 3.125 mg p.o. q.12h, Aldactone 25 mg once daily Strict Is&Os, 1.5 L fluid restriction IV Lasix as tolerated Prerenal MELIDA probably secondary to renal tubular stasis Elevated BUN and creatinine Continue to monitor BMP Hypertensive urgency HTN Controlled blood pressure IV labetalol 10 mg for SBP greater than 100 mmHg Continue lisinopril and carvedilol as per above, appropriate pain medication and maintenance Mild Troponinemia secondary to type 2 VA Probably secondary to acute CHF exacerbation Mildly elevated troponins No EKG changes Normocytic anemia Probably secondary to nutrition MVT DM type 2 History of diabetic foot ulcers with MRSA of the right lower extremity and left toes History of MELIDA, TMA History of Osteomyelitis, MRSA A1c: 6.4 On low-dose sliding scale insulin COPD, not in acute exacerbation Asthma, not in acute exacerbation DuoNeb p.r.n. Code status: Full code Diet: Heart healthy DVT prophylaxis: Heparin subQ Disposition: Admit to PCU, monitor for any fluid overload Mary Wiseman MD Internal Medicine, PGY 2 Date of Service: Jan 06, 2025 Billing Provider: MICHEAL BRYANT MD, SIVA, RES Jan 06, 2025 17:56
[2025-01-06] MEDS ORDERED: ipratropium/albuterol 3ml nebule NEB PRN (18:25)
[2025-01-06] MEDS ORDERED: labetalol 20mg/4ml (5mg/ml) syringe IV PRN (18:30)
[2025-01-06 19:30] LABS: CREATININE 1.23 MG/DL (0.40-0.90); eCRCL 40 ML/MIN; eGFR 46 ML/MIN
[2025-01-06] MEDS: K and/or MAG REPLACEMENT MC SCH (20:00)
[2025-01-06] MEDS: docusate sod 100mg capsule PO SCH (20:00)
[2025-01-06] MEDS: heparin, porcine 5000 units/ml vial SQ SCH (20:13)
[2025-01-06] MEDS: insulin glargine (Lantus) pen - multi-dose SQ SCH (22:25)
[2025-01-07] VITALS (11 sets, daily range): BP systolic 105–158; BP diastolic 30–75; PULSE 80–96; RESP 12–20; TEMP 97–97.9; O2SAT 90–99
[2025-01-07 06:19] LABS: MEAN PLATELET VOLUME 8.0 FL (7.4-10.4); RED CELL DISTRIBUTION WIDTH 17.5 % (11.5-14.5)
[2025-01-07 06:55] LABS: CHOL/HDL RATIO 4.3 (0.00-4.99); CREATININE 1.20 MG/DL (0.40-0.90); LDL CHOLESTEROL 60 MG/DL (50-100); TOTAL CARBON DIOXIDE 28.1 MMOL/L (24-32); eCRCL 41 ML/MIN; eGFR 47 ML/MIN
[2025-01-07] MEDS: potassium Cl 20 mEq SR tablet PO PRN ×2 (08:48→13:30)
[2025-01-07] MEDS: pantoprazole 40mg Tablet.DR PO SCH (08:48)
[2025-01-07] MEDS: EMPAGLIFLOZIN 10 MG TABLET PO SCH (08:49)
[2025-01-07] MEDS: ondansetron/PF 4mg/2ml inj IV PRN (13:30)
[2025-01-07 14:59] LABS: LEUKOCYTE ESTERASE ,URINE SMALL (Neg); NITRITES, URINE NEGATIVE (Neg); OCCULT BLOOD,URINE LARGE (Neg)
[2025-01-07 15:03] LABS: UA COLLECTION TYPE CLN CATCH MIDSTREAM
[2025-01-07 15:05] LABS: SQUAMOUS EPITHELIAL CELL,UR NONE SEEN /LPF (FEW); YEAST MANY /HPF (NEGATIVE)
--- NOTE | 2025-01-07 17:21 | PROGRESS NOTE- Residence ---
Progress Note - Resident Providers to CC Resident Creating Document: MARY WISEMAN RES CC: MICHEAL BRYANT MD ~ Antibiotic Timeout Antibiotic Ordered?: Yes MRSA Education MRSA Education Provided to pt: No Subjective Patient is examined at bedside. Patient does not have any complaints, sees shortness of breath is much improved. Patient's pain is controlled. Discharge disposition to rehab has to be planned Objective Vital Signs Date Time Temp Pulse Resp B/P (MAP) Pulse Ox O2 Delivery O2 Flow Rate FiO2 01/07/25 16:00 97.2 80 14 105/30 (55) 93 Room Air 01/07/25 08:23 0 21 Result Diagram: 01/07/25 0546 01/07/2546 General: Morbidly obese middle-aged woman, Alert, awake, oriented, not in acute distress HEENT: PERRLA, no icterus, pallor, lymphadenopathy, carotid bruit Respiratory system: Bilateral vesicular breath sounds heard, mild bilateral basal Creps on the posterior lower lung lesions (improved) CVS: S1-S2 heard, no murmurs/rubs/gallop GI: Multiple abdominal striae, with right horizontal surgical scar, Soft, nontender, no organomegaly, no guarding/rigidity, bowel sounds present Neuro: No focal neurological deficits present Extremities: No edema cyanosis clubbing/deformities Musculoskeletal: Right BKA in dressing, left MTP (all toes) Skin: Warm and dry Psych: Normal mood and affect Assessment Assessment A 54-year-old female with multiple medical comorbidities presented to the ED in view of acute onset of shortness of breaths. Patient is admitted for the evaluation management of acute hypoxemic respiratory failure probably secondary to acute CHF exacerbation. Plan Plan Acute hypoxemic respiratory failure 2/2 acute CHF exacerbation with reduced ejection fraction, EF: 35-40%, improving Elevated proBNP Echo in September: LVEF is 35-40%.chordal calcification madi on PMVL without stenosis Chest x-ray: Diffuse bilateral pulmonary opacities noted, overall decreased. GDM T: Lisinopril 10 mg p.o. daily, Jardiance 10 mg p.o. daily, carvedilol 3.125 mg p.o. q.12h, Aldactone 25 mg once daily Strict Is&Os, 1.5 L fluid restriction IV Lasix as tolerated Prerenal MELIDA probably secondary to renal tubular stasis, improved Elevated BUN and creatinine Continue to monitor BMP Hypertensive urgency, resolved HTN Controlled blood pressure IV labetalol 10 mg for SBP greater than 100 mmHg Continue lisinopril and carvedilol as per above, appropriate pain medication and maintenance Mild Troponinemia secondary to type 2 VA Probably secondary to acute CHF exacerbation Mildly elevated troponins No EKG changes Normocytic anemia Probably secondary to nutrition MVT DM type 2 History of diabetic foot ulcers with MRSA of the right lower extremity and left toes History of BKA, TMA History of Osteomyelitis, MRSA A1c: 6.4 On low-dose sliding scale insulin COPD, not in acute exacerbation Asthma, not in acute exacerbation DuoNeb p.r.n. Code status: Full code Diet: Heart healthy DVT prophylaxis: Heparin subQ Disposition: Continue care in PCU, discharge to a rehab needs to be planned Mary Wiseman MD Internal Medicine, PGY 2 Date of Service: Jan 07, 2025 Billing Provider: MICHEAL BRYANT MD, SIVA, RES Jan 07, 2025 17:21
[2025-01-08] VITALS (12 sets, daily range): BP systolic 103–127; BP diastolic 30–64; PULSE 63–93; RESP 8–18; TEMP 97.2–98.1; O2SAT 91–99
[2025-01-08 07:39] LABS: MEAN PLATELET VOLUME 8.3 FL (7.4-10.4); RED CELL DISTRIBUTION WIDTH 17.6 % (11.5-14.5)
[2025-01-08 07:42] LABS: CREATININE 1.56 MG/DL (0.40-0.90); TOTAL CARBON DIOXIDE 33.8 MMOL/L (24-32); eCRCL 31 ML/MIN; eGFR 35 ML/MIN
--- NOTE | 2025-01-08 18:22 | PROGRESS NOTE- Residence ---
Progress Note - Resident Providers to CC Resident Creating Document: MARY WISEMAN RES CC: MICHEAL BRYANT MD ~ Antibiotic Timeout Antibiotic Ordered?: Yes Subjective Patient is examined at bedside. Patient's shortness of breaths is much improved, has elevated creatinine probably secondary to all the GDM T medications. Patient continued to have basal Creps that required a single dosing of Lasix 20 mg. Objective Vital Signs Date Time Temp Pulse Resp B/P (MAP) Pulse Ox O2 Delivery O2 Flow Rate FiO2 01/08/25 15:00 97.2 75 8 108/42 (64) 93 01/08/25 11:00 Room Air 01/08/25 07:33 2 28 Result Diagram: 01/08/2546 01/08/2546 General: Morbidly obese middle-aged woman, Alert, awake, oriented, not in acute distress HEENT: PERRLA, no icterus, pallor, lymphadenopathy, carotid bruit Respiratory system: Bilateral vesicular breath sounds heard, mild bilateral basal Creps on the posterior lower lung lesions (improved) CVS: S1-S2 heard, no murmurs/rubs/gallop GI: Multiple abdominal striae, with right horizontal surgical scar, Soft, nontender, no organomegaly, no guarding/rigidity, bowel sounds present Neuro: No focal neurological deficits present Extremities: No edema cyanosis clubbing/deformities Musculoskeletal: Right BKA in dressing, left MTP (all toes) Skin: Warm and dry Psych: Normal mood and affect Assessment Assessment A 54-year-old female with multiple medical comorbidities presented to the ED in view of acute onset of shortness of breaths. Patient is admitted for the evaluation management of acute hypoxemic respiratory failure probably secondary to acute CHF exacerbation. Plan Plan Acute hypoxemic respiratory failure 2/2 acute CHF exacerbation with reduced ejection fraction, EF: 35-40%, improving Elevated proBNP GDM T: Lisinopril 10 mg p.o. daily, Jardiance 10 mg p.o. daily, carvedilol 3.125 mg p.o. q.12h, Aldactone 25 mg once daily Strict Is&Os, 1.5 L fluid restriction IV Lasix as tolerated Prerenal MELIDA probably secondary to renal tubular stasis Elevated BUN and creatinine Up trending creatinine Continue to monitor BMP Hypertensive urgency, resolved HTN Controlled blood pressure readings IV labetalol 10 mg for SBP greater than 100 mmHg Continue lisinopril and carvedilol as per above, appropriate pain medication and maintenance Mild Troponinemia secondary to type 2 GA Probably secondary to acute CHF exacerbation Mildly elevated troponins No EKG changes Normocytic anemia There has been drop in hemoglobin, follow up with stool occult No signs of active bleeding or melena per the patient Probably secondary to nutrition MVT DM type 2 History of diabetic foot ulcers with MRSA of the right lower extremity and left toes History of BKA, TMA History of Osteomyelitis, MRSA A1c: 6.4 On low-dose sliding scale insulin COPD, not in acute exacerbation Asthma, not in acute exacerbation DuoNeb p.r.n. Code status: Full code Diet: Heart healthy DVT prophylaxis: Heparin subQ Disposition: Continue care in PCU, discharge to a rehab needs to be planned Mary Wiseman MD Internal Medicine, PGY 2 Date of Service: Jan 08, 2025 Billing Provider: MICHEAL BRYANT MD, SIVA, RES Jan 08, 2025 18:22
[2025-01-09] VITALS (9 sets, daily range): BP systolic 133–161; BP diastolic 33–43; PULSE 16–98; RESP 13–24; TEMP 97.2–97.7; O2SAT 90–98
[2025-01-09 06:33] LABS: MEAN PLATELET VOLUME 8.6 FL (7.4-10.4); RED CELL DISTRIBUTION WIDTH 17.5 % (11.5-14.5)
[2025-01-09 07:12] LABS: CREATININE 1.76 MG/DL (0.40-0.90); PRO BRAIN NATRIURETIC PEPTIDE 18542 PG/ML (0-125); TOTAL CARBON DIOXIDE 28.9 MMOL/L (24-32); eCRCL 28 ML/MIN; eGFR 30 ML/MIN
--- NOTE | 2025-01-09 09:44 | RADIOLOGY REPORT ---
AP portable chest CLINICAL INDICATION: pul congestion comparision Comparison: 01/06/2025 FINDINGS: Heart size is enlarged. No infiltrates or effusions. IMPRESSION: 1. Compared to previous exam improving congestive changes
--- NOTE | 2025-01-09 17:03 | PROGRESS NOTE- Residence ---
Progress Note - Resident Providers to CC Resident Creating Document: MRAY WISEMAN, LEA CC: MICHEAL BRYANT MD ~ Antibiotic Timeout Antibiotic Ordered?: No Subjective Patient is examined at bedside. Patient does not complain of shortness of breaths, bilateral basal Creps is also completely resolved. Patient's creatinine is up trending-held lisinopril, Jardiance. Lasix to be used with caution only if in respiratory distress/failure. Objective Vital Signs Date Time Temp Pulse Resp B/P (MAP) Pulse Ox O2 Delivery O2 Flow Rate FiO2 01/09/25 15:24 97.6 16 17 149/37 (74) 92 Room Air 01/09/25 07:30 0.0 01/08/25 21:50 21 Result Diagram: 01/09/25 0552 01/09/25 0552 General: Morbidly obese middle-aged woman, Alert, awake, oriented, not in acute distress HEENT: PERRLA, no icterus, pallor, lymphadenopathy, carotid bruit Respiratory system: Bilateral vesicular breath sounds heard, mild bilateral basal Creps on the posterior lower lung lesions (resolved) CVS: S1-S2 heard, no murmurs/rubs/gallop GI: Multiple abdominal striae, with right horizontal surgical scar, Soft, nontender, no organomegaly, no guarding/rigidity, bowel sounds present Neuro: No focal neurological deficits present Extremities: No edema cyanosis clubbing/deformities Musculoskeletal: Right BKA in dressing, left MTP (all toes) Skin: Warm and dry Psych: Normal mood and affect Assessment Assessment A 54-year-old female with multiple medical comorbidities presented to the ED in view of acute onset of shortness of breaths. Patient is admitted for the evaluation management of acute hypoxemic respiratory failure probably secondary to acute CHF exacerbation. Plan Plan Acute hypoxemic respiratory failure, resolved 2/2 acute CHF exacerbation with reduced ejection fraction, EF: 35-40%, improving Elevated proBNP, downtrending Held lisinopril and jaundice in view of up trending creatinine, we will restart one week after discharge with repeat labs with PCP GDM T: Carvedilol 3.125 mg p.o. q.12h, Aldactone 25 mg once daily Strict Is&Os, 1.5 L fluid restriction Lasix to be use did caution unless and until the patient has severe respiratory distress/failure Prerenal MELIDA probably secondary to renal tubular stasis Elevated BUN and creatinine Up trending creatinine Continue to monitor BMP Hypertensive urgency, resolved HTN Controlled blood pressure readings IV labetalol 10 mg for SBP greater than 100 mmHg Continue carvedilol as per above, appropriate pain medication and maintenance We will resume lisinopril once the kidney function stabilizes Mild Troponinemia secondary to type 2 [place] Probably secondary to acute CHF exacerbation Mildly elevated troponins No EKG changes Normocytic anemia H/H stable, improved MVT DM type 2 History of diabetic foot ulcers with MRSA of the right lower extremity and left toes History of BKA, TMA History of Osteomyelitis, MRSA A1c: 6.4 On low-dose sliding scale insulin COPD, not in acute exacerbation Asthma, not in acute exacerbation DuoNeb p.r.n. Code status: Full code Diet: Heart healthy DVT prophylaxis: Heparin subQ Disposition: Continue care in PCU, rehab referrals sent, awaiting acceptance Mary Wiseman MD Internal Medicine, PGY 2 Date of Service: Jan 09, 2025 Billing Provider: MICHEAL BRYANT MD, SIVA, RES Jan 09, 2025 17:03
[2025-01-10] VITALS (9 sets, daily range): BP systolic 119–152; BP diastolic 33–65; PULSE 78–89; RESP 14–19; TEMP 96.9–98.2; O2SAT 91–95
[2025-01-10 08:06] LABS: MEAN PLATELET VOLUME 8.4 FL (7.4-10.4); RED CELL DISTRIBUTION WIDTH 18.4 % (11.5-14.5)
[2025-01-10 08:34] LABS: CREATININE 1.38 MG/DL (0.40-0.90); TOTAL CARBON DIOXIDE 30.2 MMOL/L (24-32); eCRCL 36 ML/MIN; eGFR 40 ML/MIN
[2025-01-10] MEDS: CefTRIAXone/D5W-Rocephin 1gm 50 ML IV SCH (09:29)
--- NOTE | 2025-01-10 17:07 | PROGRESS NOTE- Residence ---
Progress Note - Resident Providers to CC Resident Creating Document: MARY WISEMAN RES CC: MICHEAL BRYANT MD ~ Antibiotic Timeout Antibiotic Ordered?: Yes Subjective Patient is examined at bedside. Patient has no medical complaints, no acute overnight events. Awaiting placement at a rehab. Per rifle case repairer, she so far has denials. Objective Vital Signs Date Time Temp Pulse Resp B/P (MAP) Pulse Ox O2 Delivery O2 Flow Rate FiO2 01/10/25 12:15 97.4 79 16 152/33 (72) 95 Room Air 01/10/25 11:10 0 21 Result Diagram: 01/10/25 0702 01/10/25 0702 General: Morbidly obese middle-aged woman, Alert, awake, oriented, not in acute distress HEENT: PERRLA, no icterus, pallor, lymphadenopathy, carotid bruit Respiratory system: Bilateral vesicular breath sounds heard, mild bilateral basal Creps on the posterior lower lung lesions (resolved) CVS: S1-S2 heard, no murmurs/rubs/gallop GI: Multiple abdominal striae, with right horizontal surgical scar, Soft, nontender, no organomegaly, no guarding/rigidity, bowel sounds present Neuro: No focal neurological deficits present Extremities: No edema cyanosis clubbing/deformities Musculoskeletal: Right BKA in dressing, left MTP (all toes) Skin: Warm and dry Psych: Normal mood and affect Assessment Assessment A 54-year-old female with multiple medical comorbidities presented to the ED in view of acute onset of shortness of breaths. Patient is admitted for the evaluation management of acute hypoxemic respiratory failure probably secondary to acute CHF exacerbation. Plan Plan Acute hypoxemic respiratory failure, resolved 2/2 acute CHF exacerbation with reduced ejection fraction, EF: 35-40%, improving Elevated proBNP, downtrending Held lisinopril and Jardiance in view of up trending creatinine on 01/09/2025, currently creatinine downtrending. We will try to reintroduce at a slower pace. GDM T: Carvedilol 3.125 mg p.o. q.12h, Aldactone 25 mg once daily Strict Is&Os, 1.5 L fluid restriction Lasix to be used with caution unless and until the patient has severe respiratory distress/failure Prerenal MELIDA probably secondary to renal tubular stasis, improving UTI Urine culture positive for Klebsiella IV ceftriaxone 1 g (day 05/05) Elevated BUN and creatinine Downtrending creatinine Continue to monitor BMP Hypertensive urgency, resolved HTN Controlled blood pressure readings IV labetalol 10 mg for SBP greater than 100 mmHg Continue carvedilol as per above, appropriate pain medication and maintenance We will resume lisinopril once the kidney function stabilizes Mild Troponinemia secondary to type 2 [place] Probably secondary to acute CHF exacerbation Mildly elevated troponins No EKG changes Normocytic anemia H/H stable, improved MVT DM type 2 History of diabetic foot ulcers with MRSA of the right lower extremity and left toes History of BKA, TMA History of Osteomyelitis, MRSA A1c: 6.4 On low-dose sliding scale insulin COPD, not in acute exacerbation Asthma, not in acute exacerbation DuoNeb p.r.n. Code status: Full code Diet: Heart healthy DVT prophylaxis: Heparin subQ Disposition: Continue care in PCU, rehab referrals sent, awaiting acceptance, s uture removal tomorrow Mary Wiseman MD Internal Medicine, PGY 2 Date of Service: Jan 10, 2025 Billing Provider: MICHEAL BRYANT MD, SIVA, RES Jan 10, 2025 17:07
[2025-01-11] VITALS (9 sets, daily range): BP systolic 105–154; BP diastolic 41–86; PULSE 74–89; RESP 13–20; TEMP 97.2–97.9; O2SAT 92–99
[2025-01-11 06:16] LABS: MEAN PLATELET VOLUME 8.3 FL (7.4-10.4); RED CELL DISTRIBUTION WIDTH 18.5 % (11.5-14.5)
[2025-01-11 06:28] LABS: CREATININE 1.61 MG/DL (0.40-0.90); TOTAL CARBON DIOXIDE 31.1 MMOL/L (24-32); eCRCL 30 ML/MIN; eGFR 33 ML/MIN
--- NOTE | 2025-01-11 15:49 | PROGRESS NOTE- Residence ---
Progress Note - Resident Providers to CC Resident Creating Document: ANIKA POWELL RES ~ Antibiotic Timeout Antibiotic Ordered?: Yes Subjective Patient seen and examined at bedside. No new concerns or complaints. She states that she was scheduled for the suture removal today at [facility] in [place]. She does not remember the name of the surgeon. Objective Vital Signs Date Time Temp Pulse Resp B/P (MAP) Pulse Ox O2 Delivery O2 Flow Rate FiO2 01/11/25 11:00 97.8 83 14 112/41 (64) 96 Nasal Cannula 2.0 01/11/25 08:25 21 Result Diagram: 01/11/2555601/11/25556 General: Awake and Alert, no acute distress. HEENT: Conjunctiva pink, Sclera clear, Mucus Membranes moist. Neck: Supple without masses and tenderness. Resp: Unlabored. Equal breath sounds bilaterally. Heart: Regular rhythm, normal S1 and S2, no rub, murmur or gallop. Abdomen: Multiple abdominal striae, right-sided surgical scar present. Soft and non tender no organomegaly. Normal bowel sounds x4 quadrant normoactive. No guarding or rigidity. Extremities: Right BKA. No cyanosis,clubbing or edema. TOWEL SEWER: No gross motor or sensory abnormalities. Skin: Warm and Dry. Assessment Assessment A 54-year-old female with multiple medical comorbidities presented to the ED in view of acute onset of shortness of breaths. Patient is admitted for the evaluation management of acute hypoxemic respiratory failure probably secondary to acute CHF exacerbation. Plan Plan Acute hypoxemic respiratory failure, resolved 2/2 acute CHF exacerbation with reduced ejection fraction, EF: 35-40%, improving Elevated proBNP, downtrending GDMT: Carvedilol 3.125 mg p.o. q.12h, Aldactone 25 mg once daily Unable to at NOAH/ARB/ARNI or SGLT2 inhibitor in view of MELIDA Strict Is&Os, 1.5 L fluid restriction Prerenal MELIDA probably secondary to renal tubular stasis, improving Likely has baseline kidney disease CKD stage II, Elevated BUN and creatinine Continue to monitor BMP Hypertensive urgency, resolved HTN Continue carvedilol 3.125 b.i.d., Hold blood pressure medications for SBP less than 100 and heart rate less than 60. DC home medication lisinopril in view of MELIDA, resume as able on outpatient basis Mild Troponinemia secondary to type 2 [place] Probably secondary to acute CHF exacerbation Mildly elevated troponins No EKG changes Normocytic anemia H/H stable, improved DM type 2 History of diabetic foot ulcers with MRSA of the right lower extremity and left toes History of MELIDA, TMA History of Osteomyelitis, MRSA A1c: 6.4 On low-dose sliding scale insulin She had right BKA done on November 30 at [facility] in [place]. Her mikhail are scheduled to be removed today 01/11/2025. Does not remember the surgeon who had performed the surgery, requested PARI Martinez to get medical [facility]. Dr Power was consulted here during her previous admission for the BKA, but she said it wasn't Dr Power who did the surgery, she had the surgery done at [facility], I do not think Dr Power goes to [facility]. And per medical records she did not have right BKA surgery here at [facility]. Will review records and reach out to the surgeon if he would like to get the sutures removed here or he will want to follow up with her outpatient. COPD, not in acute exacerbation Asthma, not in acute exacerbation DuoNeb p.r.n. Code status: Full code Diet: Heart healthy DVT prophylaxis: Heparin subQ Disposition: Continue medical management. Awaiting placement. Follow up with records from [facility] regarding the surgeon who performed right BKA, patient needs the sutures to be removed. DC lisniopril, Farxiga, protonix and metformin home meds, she has significantly elevated creatinine. Recommended to start GDMT on outpatient basis when kidney function permits. Anika Powell MD IM Resident PGY 3 Date of Service: Jan 11, 2025 Billing Provider: MICHEAL BRYANT MD, ELIZABETH, RES Jan 11, 2025 15:49 MARY WISEMAN, RES Jan 14, 2025 07:59
[2025-01-12] VITALS (10 sets, daily range): BP systolic 126–159; BP diastolic 37–60; PULSE 76–86; RESP 14–20; TEMP 97.3–97.9; O2SAT 93–96
[2025-01-12 11:37] LABS: MEAN PLATELET VOLUME 8.2 FL (7.4-10.4); RED CELL DISTRIBUTION WIDTH 18.2 % (11.5-14.5)
[2025-01-12 11:48] LABS: CREATININE 1.49 MG/DL (0.40-0.90); TOTAL CARBON DIOXIDE 29.7 MMOL/L (24-32); eCRCL 33 ML/MIN; eGFR 37 ML/MIN
--- NOTE | 2025-01-12 17:53 | PROGRESS NOTE- Residence ---
Progress Note - Resident Providers to CC Resident Creating Document: MARY WISEMAN RES CC: MICHEAL BRYANT MD ~ Antibiotic Timeout Antibiotic Ordered?: Yes Subjective Patient seen and examined at bedside. Patient does not have any complaints, shortness for breath much improved. No crackles heard at the bases. Awaiting records from [facility] in order to plan for suture removal. Objective Vital Signs Date Time Temp Pulse Resp B/P (MAP) Pulse Ox O2 Delivery O2 Flow Rate FiO2 01/12/25 15:00 97.3 81 17 140/48 (78) 93 Room Air 01/12/25 08:00 0 21 Result Diagram: 01/12/25 1129 01/12/25 1129 General: Morbidly obese middle-aged woman, Alert, awake, oriented, not in acute distress HEENT: PERRLA, no icterus, pallor, lymphadenopathy, carotid bruit Respiratory system: Bilateral vesicular breath sounds heard, mild bilateral basal Creps on the posterior lower lung lesions (resolved) CVS: S1-S2 heard, no murmurs/rubs/gallop GI: Multiple abdominal striae, with right horizontal surgical scar, Soft, nontender, no organomegaly, no guarding/rigidity, bowel sounds present Neuro: No focal neurological deficits present Extremities: No edema cyanosis clubbing/deformities Musculoskeletal: Right BKA in dressing, left MTP (all toes) Skin: Warm and dry Psych: Normal mood and affect Assessment Assessment A 54-year-old female with multiple medical comorbidities presented to the ED in view of acute onset of shortness of breaths. Patient is admitted for the evaluation management of acute hypoxemic respiratory failure probably secondary to acute CHF exacerbation. Plan Plan Acute hypoxemic respiratory failure, resolved 2/2 acute CHF exacerbation with reduced ejection fraction, EF: 35-40%, improving Elevated proBNP, downtrending GDMT: Carvedilol 3.125 mg p.o. q.12h, Aldactone 25 mg once daily Unable to at NOAH/ARB/ARNI or SGLT2 inhibitor in view of MELIDA Lasix as tolerated Strict Is&Os, 1.5 L fluid restriction Prerenal MELIDA probably secondary to renal tubular stasis, improving Likely has baseline kidney disease CKD stage II UTI Urine culture positive for Klebsiella IV ceftriaxone 1 g (day 3/) Elevated BUN and creatinine Continue to monitor BMP Hypertensive urgency, resolved HTN Continue carvedilol 3.125 b.i.d., Hold blood pressure medications for SBP less than 100 and heart rate less than 60. DC home medication lisinopril in view of MELIDA, resume as able on outpatient basis Mild Troponinemia secondary to type 2 [place] Probably secondary to acute CHF exacerbation Mildly elevated troponins No EKG changes Normocytic anemia H/H stable, improved DM type 2 History of diabetic foot ulcers with MRSA of the right lower extremity and left toes History of BKA, TMA History of Osteomyelitis, MRSA A1c: 6.4 On low-dose sliding scale insulin She had right BKA done on November 30 at [facility] in [place]. Her mikhail are scheduled to be removed today 01/11/2025. Awaiting records from [facility] COPD, not in acute exacerbation Asthma, not in acute exacerbation Irineo p.r.n. Code status: Full code Diet: Heart healthy DVT prophylaxis: Heparin subQ Disposition: Continue medical management. Awaiting placement. Follow up with records from [facility] regarding the surgeon who performed right BKA, patient needs the sutures to be removed. DC lisniopril, Farxiga, protonix and metformin home meds, she has significantly elevated creatinine. Recommended to start GDMT on outpatient basis when kidney function permits. Mary Wiseman MD Internal Medicine, PGY 2 Date of Service: Jan 12, 2025 Billing Provider: MICHEAL BRYANT MD, SIVA, RES Jan 12, 2025 17:53
[2025-01-13] VITALS (12 sets, daily range): BP systolic 145–194; BP diastolic 44–85; PULSE 82–101; RESP 12–18; TEMP 97–97.7; O2SAT 92–97
[2025-01-13 06:48] LABS: MEAN PLATELET VOLUME 8.3 FL (7.4-10.4); RED CELL DISTRIBUTION WIDTH 17.9 % (11.5-14.5)
[2025-01-13 06:50] LABS: CREATININE 1.12 MG/DL (0.40-0.90); TOTAL CARBON DIOXIDE 28.0 MMOL/L (24-32); eCRCL 44 ML/MIN; eGFR 51 ML/MIN
[2025-01-13] MEDS: LIDOCAINE 5% OINTMENT 35GM TP ONE (13:15)
[2025-01-13] MEDS: labetalol 20mg/4ml (5mg/ml) syringe IV ONE (16:06)
--- NOTE | 2025-01-13 16:49 | PROGRESS NOTE- Residence ---
Progress Note - Resident Providers to CC Resident Creating Document: MARY WISEMAN, LEA CC: MICHEAL BRYANT MD ~ Antibiotic Timeout Antibiotic Ordered?: Yes Subjective Patient seen and examined at bedside. We could get the medical records from in [facility], patient was operated on [address] Morgan Damon. As he was performing surgery today, I was able to talk to his PA, Eliseo. Per the records, patient was supposed to have suture removal three weeks based on the healing of the stump. Per the PA, patient is recommended to continue nonweightbearing and wearing stump shrinkers. Patient is scheduled for suture removal today with in the hospital. Objective Vital Signs Date Time Temp Pulse Resp B/P (MAP) Pulse Ox O2 Delivery O2 Flow Rate FiO2 01/13/25 15:34 92 18 94 Room Air* 0 21 01/13/25 15:25 175/66 (102) 01/13/25 15:00 97.4 Result Diagram: 01/13/2561201/13/25612 General: Morbidly obese middle-aged woman, Alert, awake, oriented, not in acute distress HEENT: PERRLA, no icterus, pallor, lymphadenopathy, carotid bruit Respiratory system: Bilateral vesicular breath sounds heard, mild bilateral basal Creps on the posterior lower lung lesions (resolved) CVS: S1-S2 heard, no murmurs/rubs/gallop GI: Multiple abdominal striae, with right horizontal surgical scar, Soft, nontender, no organomegaly, no guarding/rigidity, bowel sounds present Neuro: No focal neurological deficits present Extremities: No edema cyanosis clubbing/deformities Musculoskeletal: Right BKA in dressing, left MTP (all toes) Skin: Warm and dry Psych: Normal mood and affect Assessment Assessment A 54-year-old female with multiple medical comorbidities presented to the ED in view of acute onset of shortness of breaths. Patient is admitted for the evaluation management of acute hypoxemic respiratory failure probably secondary to acute CHF exacerbation. Plan Plan Acute hypoxemic respiratory failure, resolved 2/2 acute CHF exacerbation with reduced ejection fraction, EF: 35-40%, improving Elevated proBNP, downtrending GDMT: Carvedilol 3.125 mg p.o. q.12h, Aldactone 25 mg once daily Unable to at NOAH/ARB/ARNI or SGLT2 inhibitor in view of MELIDA Lasix as tolerated Strict Is&Os, 1.5 L fluid restriction Prerenal MELIDA probably secondary to renal tubular stasis, improving Likely has baseline kidney disease CKD stage II UTI Urine culture positive for Klebsiella IV ceftriaxone 1 g (day 4) Elevated BUN and creatinine Continue to monitor BMP Hypertensive urgency, resolved HTN Continue carvedilol 3.125 b.i.d., Hold blood pressure medications for SBP less than 100 and heart rate less than 60. DC home medication lisinopril in view of MELIDA, resume as able on outpatient basis Mild Troponinemia secondary to type 2 [place] Probably secondary to acute CHF exacerbation Mildly elevated troponins No EKG changes Normocytic anemia H/H stable, improved DM type 2 History of diabetic foot ulcers with MRSA of the right lower extremity and left toes History of BKA, TMA History of Osteomyelitis, MRSA A1c: 6.4 On low-dose sliding scale insulin She had right BKA done on December 02 at [facility] in [place]. Her mikhail are removed today 01/13/2025. Continue nonweightbearing and stump shrinkers per surgeon's recommendations at [place]. COPD, not in acute exacerbation Asthma, not in acute exacerbation DuoNeb p.r.n. Code status: Full code Diet: Heart healthy DVT prophylaxis: Heparin subQ Disposition: Continue medical management. Awaiting placement. DC lisniopril, Farxiga, protonix and metformin home meds, she has significantly elevated creatinine. Recommended to start GDMT on outpatient basis when kidney function permits. Mary Wiseman MD Internal Medicine, PGY 2 Date of Service: Jan 13, 2025 Billing Provider: MICHEAL BRYANT MD, SIVA, RES Jan 13, 2025 16:49
[2025-01-14] VITALS (8 sets, daily range): BP systolic 148–159; BP diastolic 43–73; PULSE 84–90; RESP 12–24; TEMP 97.1–98.3; O2SAT 93–98
[2025-01-14 06:20] LABS: CREATININE 1.07 MG/DL (0.40-0.90); TOTAL CARBON DIOXIDE 30.3 MMOL/L (24-32); eCRCL 46 ML/MIN; eGFR 54 ML/MIN
[2025-01-14 06:21] LABS: MEAN PLATELET VOLUME 8.4 FL (7.4-10.4); RED CELL DISTRIBUTION WIDTH 18.2 % (11.5-14.5)
--- NOTE | 2025-01-14 17:42 | PROGRESS NOTE- Residence ---
Progress Note - Resident Providers to CC Resident Creating Document: MARY WISEMAN, LEA CC: MICHEAL BRYANT MD ~ Antibiotic Timeout Antibiotic Ordered?: Yes Subjective Patient seen and examined at bedside. Patient does not have any complaints. Patient has been transferred to ortho floor without telemetry as the patient is pretty stable and hemodynamically stable. Objective Vital Signs Date Time Temp Pulse Resp B/P (MAP) Pulse Ox O2 Delivery O2 Flow Rate FiO2 01/14/25 15:00 98.2 86 12 151/43 (79) 93 Room Air 01/14/25 10:47 0 21 Result Diagram: 01/14/25 0542 01/14/2542 General: Morbidly obese middle-aged woman, Alert, awake, oriented, not in acute distress HEENT: PERRLA, no icterus, pallor, lymphadenopathy, carotid bruit Respiratory system: Bilateral vesicular breath sounds heard, mild bilateral basal Creps on the posterior lower lung lesions (improved) CVS: S1-S2 heard, no murmurs/rubs/gallop GI: Multiple abdominal striae, with right horizontal surgical scar, Soft, nontender, no organomegaly, no guarding/rigidity, bowel sounds present Neuro: No focal neurological deficits present Extremities: No edema cyanosis clubbing/deformities Musculoskeletal: Right BKA in dressing, left MTP (all toes) Skin: Warm and dry Psych: Normal mood and affect Assessment Assessment A 54-year-old female with multiple medical comorbidities presented to the ED in view of acute onset of shortness of breaths. Patient is admitted for the evaluation management of acute hypoxemic respiratory failure probably secondary to acute CHF exacerbation. Plan Plan Acute hypoxemic respiratory failure 2/2 acute CHF exacerbation with reduced ejection fraction, EF: 35-40%, improving Elevated proBNP Echo in September: LVEF is 35-40%.chordal calcification madi on PMVL without stenosis GDM T: Lisinopril 10 mg p.o. daily, Jardiance 10 mg p.o. daily held in view of worsening kidney function, carvedilol 3.125 mg p.o. q.12h, Aldactone 25 mg once daily Strict Is&Os, 1.5 L fluid restriction IV Lasix as tolerated Prerenal MELIDA probably secondary to renal tubular stasis, improved Elevated BUN and creatinine, improving Continue to monitor BMP Hypertensive urgency, resolved HTN Amlodipine 10 mg p.o. daily IV labetalol 10 mg for SBP greater than 100 mmHg Continue carvedilol as per above, appropriate pain medication and maintenance Lisinopril held in view of worsening kidney function Mild Troponinemia secondary to type 2 [place] Probably secondary to acute CHF exacerbation Mildly elevated troponins No EKG changes Normocytic anemia Probably secondary to nutrition MVT DM type 2 History of diabetic foot ulcers with MRSA of the right lower extremity and left toes History of BKA, TMA History of Osteomyelitis, MRSA A1c: 6.4 On moderate dose sliding scale insulin COPD, not in acute exacerbation Asthma, not in acute exacerbation DuoNeb p.r.n. Code status: Full code Diet: Heart healthy DVT prophylaxis: Heparin subQ Disposition: Transferred to [facility], discharge to a rehab needs to be planned Mary Wiseman MD Internal Medicine, PGY 2 Date of Service: Jan 14, 2025 Billing Provider: MICHEAL BRYANT MD, SIVA, RES Jan 14, 2025 17:42
[2025-01-14] MEDS: INSULIN LISPRO 100 UNIT/ML INSULN.PEN MULTI-DOSE SQ SCH (20:35)
[2025-01-15] VITALS (7 sets, daily range): BP systolic 137–161; BP diastolic 45–70; PULSE 80–94; RESP 15–18; TEMP 97.9–98.3; O2SAT 93–97
[2025-01-15 00:50] LABS: OSMOLALITY UA 317 MOSM/K (50-1400)
[2025-01-15 00:52] LABS: CREATININE,URINE RANDOM 24.0 MG/DL; URINE AMPHETAMINE SCREEN NEGATIVE (Neg); URINE BARBITUATE SCREEN NEGATIVE (Neg); URINE BENZODIAZEPINES SCREEN NEGATIVE (Neg); URINE CANNABINOID SCREEN NEGATIVE (Neg); URINE COCAINE SCREEN NEGATIVE (Neg); URINE METHADONE SCREEN NEGATIVE (Neg); URINE OPIATE SCREEN NEGATIVE (Neg); URINE PHENCYCLIDINE SCREEN NEGATIVE (Neg)
[2025-01-15 05:34] LABS: MEAN PLATELET VOLUME 8.2 FL (7.4-10.4); RED CELL DISTRIBUTION WIDTH 18.6 % (11.5-14.5)
[2025-01-15 05:40] LABS: CREATININE 1.23 MG/DL (0.40-0.90); TOTAL CARBON DIOXIDE 31.1 MMOL/L (24-32); eCRCL 40 ML/MIN; eGFR 46 ML/MIN
[2025-01-15 09:29] LABS: HCG SERUM QL NEGATIVE
--- NOTE | 2025-01-15 16:28 | PROGRESS NOTE- Residence ---
Progress Note - Resident Providers to CC Resident Creating Document: MARY WISEMAN RES CC: MICHEAL BRYANT MD ~ Antibiotic Timeout Antibiotic Ordered?: Yes Subjective Patient seen and examined at bedside. Patient does not have any complaints. No acute overnight events. Awaiting rehab placement. Objective Vital Signs Date Time Temp Pulse Resp B/P (MAP) Pulse Ox O2 Delivery O2 Flow Rate FiO2 01/15/25 10:00 98.3 94 15 161/64 (96) 94 Room Air 01/15/25 08:12 0 21 Result Diagram: 01/15/25 0511 01/15/25510 General: Morbidly obese middle-aged woman, Alert, awake, oriented, not in acute distress HEENT: PERRLA, no icterus, pallor, lymphadenopathy, carotid bruit Respiratory system: Bilateral vesicular breath sounds heard, mild bilateral basal Creps on the posterior lower lung lesions (improved) CVS: S1-S2 heard, no murmurs/rubs/gallop GI: Multiple abdominal striae, with right horizontal surgical scar, Soft, nontender, no organomegaly, no guarding/rigidity, bowel sounds present Neuro: No focal neurological deficits present Extremities: No edema cyanosis clubbing/deformities Musculoskeletal: Right BKA in dressing, left MTP (all toes) Skin: Warm and dry Psych: Normal mood and affect Assessment Assessment A 54-year-old female with multiple medical comorbidities presented to the ED in view of acute onset of shortness of breaths. Patient is admitted for the evaluation management of acute hypoxemic respiratory failure probably secondary to acute CHF exacerbation. Plan Plan Acute hypoxemic respiratory failure 2/2 acute CHF exacerbation with reduced ejection fraction, EF: 35-40%, improving Elevated proBNP Echo in September: LVEF is 35-40%.chordal calcification madi on PMVL without stenosis GDM T: Losartan 25 mg, Aldactone 25 mg once daily, carvedilol 3.125 mg q.12h p.o., held Jardiance in view of worsening kidney function Strict Is&Os, 1.5 L fluid restriction IV Lasix as tolerated Prerenal MELIDA probably secondary to renal tubular stasis, improved Elevated BUN and creatinine, improving Continue to monitor BMP Hypertensive urgency, resolved HTN IV labetalol 10 mg for SBP greater than 100 mmHg Continue carvedilol as per above, appropriate pain medication and maintenance Losartan 25 mg once daily Mild Troponinemia secondary to type 2 [place] Probably secondary to acute CHF exacerbation Mildly elevated troponins No EKG changes Normocytic anemia Probably secondary to nutrition MVT DM type 2 History of diabetic foot ulcers with MRSA of the right lower extremity and left toes History of BKA, TMA History of Osteomyelitis, MRSA A1c: 6.4 On moderate dose sliding scale insulin COPD, not in acute exacerbation Asthma, not in acute exacerbation DuoNeb p.r.n. Code status: Full code Diet: Heart healthy DVT prophylaxis: Heparin subQ Disposition: Continue care in ortho, discharge to a rehab needs to be planned Mary Wiseman MD Internal Medicine, PGY 2 Date of Service: Jan 15, 2025 Billing Provider: MICHEAL BRYANT MD,MARY, RES Jan 15, 2025 16:28
[2025-01-16 05:00] VITALS: BP_SYST 122; BP_SYST 138; BP_DIAS 45; BP_DIAS 53; PULSE 81; PULSE 88; RESP 18; RESP 19; TEMP 97.8; TEMP 97.9; O2SAT 93; O2SAT 94
[2025-01-16 05:52] LABS: MEAN PLATELET VOLUME 8.3 FL (7.4-10.4); RED CELL DISTRIBUTION WIDTH 18.3 % (11.5-14.5)
[2025-01-16 06:10] LABS: CREATININE 1.36 MG/DL (0.40-0.90); TOTAL CARBON DIOXIDE 29.6 MMOL/L (24-32); eCRCL 36 ML/MIN; eGFR 41 ML/MIN
[2025-01-16 08:32] VITALS: PULSE 81; RESP 16; O2SAT 94
[2025-01-16 10:00] VITALS: BP 121/40; PULSE 81; RESP 18; TEMP 97.8; O2SAT 93
[2025-01-16 10:06] VITALS: RESP 19; O2SAT 94
[2025-01-16 18:00] VITALS: BP 139/40; PULSE 81; RESP 16; TEMP 98; O2SAT 96
--- NOTE | 2025-01-16 19:33 | PROGRESS NOTE- Residence ---
Progress Note - Resident Providers to CC Resident Creating Document: PHIL FALCON RES ~ Antibiotic Timeout Antibiotic Ordered?: No Subjective Patient seen and examined today. Comfortably resting in the bed. Denies any complaints. Objective Vital Signs Date Time Temp Pulse Resp B/P (MAP) Pulse Ox O2 Delivery O2 Flow Rate FiO2 01/16/25 10:06 19 94 Room Air 01/16/25 10:00 97.8 81 121/40 (67) 01/16/25 08:32 0 21 Result Diagram: 01/16/2552801/16/25528 General: Alert and oriented x 4 HEENT: Normocephalic and atraumatic. Pupils equal round and reactive to light and accommodation. Extraocular movements intact. Oral and nasal mucosa moist Neck: Trachea is in midline. No masses or JVD Lungs: Bilateral normal breath sounds. No crackles, rhonchi or wheezes Heart: Regular rate and rhythm. S1-S2 normal. No rubs or murmurs Abdomen: Multiple abdominal striae, with right horizontal surgical scar. Soft, nontender and nondistended. 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 Has right BKA-dressing in place. Amputation of left MTP-all toes Skin: Warm and dry Assessment Assessment A 54-year-old female with multiple medical comorbidities presented to the ED in view of acute onset of shortness of breaths. Patient is admitted for the evaluation management of acute hypoxemic respiratory failure probably secondary to acute CHF exacerbation. Plan Plan Acute hypoxemic respiratory failure 2/2 acute CHF exacerbation with reduced ejection fraction, EF: 35-40%, improving Elevated proBNP Echo in September: LVEF is 35-40%.chordal calcification madi on PMVL without stenosis GDM T: Lisinopril 10 mg p.o. daily, Jardiance 10 mg p.o. daily held in view of worsening kidney function Continue carvedilol 3.125 mg p.o. q.12h, Aldactone 25 mg once daily Strict Is&Os, 1.5 L fluid restriction Not on any Lasix Urinary tract infection Prerenal MELIDA probably secondary to renal tubular stasis on CKD stage 3 Urine culture showed growth of pansensitive Klebsiella pneumonia Completed seven day course of Rocephin 1 g IV daily Creatinine worsening with Arb Held losartan Also held Jardiance in view of active UTI Hypertensive urgency, resolved HTN Started chlorthalidone 25 mg p.o. daily Continue carvedilol 12.5 mg p.o. b.i.d. Arb held in view of worsening kidney function Mild Troponinemia secondary to type 2 [place] Probably secondary to acute CHF exacerbation Mildly elevated troponins Normocytic anemia Probably secondary to nutrition MVT DM type 2 History of diabetic foot ulcers with MRSA of the right lower extremity and left toes History of BKA, TMA History of Osteomyelitis, MRSA A1c: 6.4 On moderate dose sliding scale insulin with 10 units Lantus HS COPD, not in acute exacerbation Asthma, not in acute exacerbation DuoNeb p.r.n. Code status: Full code Diet: Heart healthy DVT prophylaxis: Heparin subQ Disposition: Accepted by [facility]. Awaiting authorization. Possible discharge on Saturday. Recommend not to start ACEI or Arb at the time of discharge as the patient is not able to tolerate and the kidney function is getting worse Phil Falcon MD Internal Medicine Resident, PGY 3 Date of Service: Jan 16, 2025 Billing Provider: MICHEAL BRYANT MD, MANOJNA RES Jan 16, 2025 19:33
[2025-01-16 22:00] VITALS: BP 120/47; PULSE 84; RESP 17; TEMP 98.1; O2SAT 96
[2025-01-17] VITALS (9 sets, daily range): BP systolic 125–144; BP diastolic 33–42; PULSE 72–79; RESP 15–18; TEMP 97.6–98.1; O2SAT 93–97
[2025-01-17 10:28] LABS: MEAN PLATELET VOLUME 8.4 FL (7.4-10.4); RED CELL DISTRIBUTION WIDTH 18.6 % (11.5-14.5)
[2025-01-17 10:37] LABS: CREATININE 1.46 MG/DL (0.40-0.90); TOTAL CARBON DIOXIDE 27.3 MMOL/L (24-32); eCRCL 34 ML/MIN; eGFR 37 ML/MIN
[2025-01-17 10:45] LABS: PLATELET ESTIMATE NORMAL
--- NOTE | 2025-01-17 14:27 | PROGRESS NOTE- Residence ---
Progress Note - Resident Providers to CC Resident Creating Document: MARY WISEMAN RES CC: MICHEAL BRYANT MD ~ Antibiotic Timeout Antibiotic Ordered?: Yes Subjective Patient seen and examined today. Patient is up out of the bed, in her chair. Patient also was able to make a lap around the unit. Patient feels well, have no subjective complaints or acute overnight events. Objective Vital Signs Date Time Temp Pulse Resp B/P (MAP) Pulse Ox O2 Delivery O2 Flow Rate FiO2 01/17/25 10:38 73 18 93 Room Air* 0 21 01/17/25 05:00 97.8 125/37 (66) Result Diagram: 01/17/25 1003 01/17/25 1003 General: Morbidly obese middle-aged woman, Alert, awake, oriented, not in acute distress HEENT: PERRLA, no icterus, pallor, lymphadenopathy, carotid bruit Respiratory system: Bilateral vesicular breath sounds heard, mild bilateral basal Creps on the posterior lower lung lesions (improved) CVS: S1-S2 heard, no murmurs/rubs/gallop GI: Multiple abdominal striae, with right horizontal surgical scar, Soft, nontender, no organomegaly, no guarding/rigidity, bowel sounds present Neuro: No focal neurological deficits present Extremities: No edema cyanosis clubbing/deformities Musculoskeletal: Right BKA in dressing, left MTP (all toes) Skin: Warm and dry Psych: Normal mood and affect Assessment Assessment A 54-year-old female with multiple medical comorbidities presented to the ED in view of acute onset of shortness of breaths. Patient is admitted for the evaluation management of acute hypoxemic respiratory failure probably secondary to acute CHF exacerbation. Plan Plan Acute hypoxemic respiratory failure 2/2 acute CHF exacerbation with reduced ejection fraction, EF: 35-40%, improving Elevated proBNP Echo in September: LVEF is 35-40%.chordal calcification madi on PMVL without stenosis GDM T: Aldactone 25 mg once daily, carvedilol 3.125 mg q.12h p.o., held Jardiance and AR in view of worsening kidney function Strict Is&Os, 1.5 L fluid restriction IV Lasix as tolerated Urinary tract infection Prerenal MELIDA probably secondary to renal tubular stasis on CKD stage 3 Urine culture showed growth of pansensitive Klebsiella pneumonia Completed seven day course of Rocephin 1 g IV daily Creatinine worsening with Arb Held losartan Also held Jardiance in view of active UTI Hypertensive urgency, resolved HTN IV labetalol 10 mg for SBP greater than 100 mmHg Continue carvedilol as per above, appropriate pain medication and maintenance Chlorthalidone 25 mg once daily Mild Troponinemia secondary to type 2 [place] Probably secondary to acute CHF exacerbation Mildly elevated troponins No EKG changes Normocytic anemia Probably secondary to nutrition MVT DM type 2 History of diabetic foot ulcers with MRSA of the right lower extremity and left toes History of BKA, TMA History of Osteomyelitis, MRSA A1c: 6.4 On moderate dose sliding scale insulin COPD, not in acute exacerbation Asthma, not in acute exacerbation DuoNeb p.r.n. Code status: Full code Diet: Heart healthy DVT prophylaxis: Heparin subQ Disposition: Continue care in ortho, awaiting authorization, possible discharge Saturday. Consider discharging with Александр/ARB, Jardiance or with instructions follow up with primary care about these medications Mary Wiseman MD Internal Medicine, PGY 2 Date of Service: Jan 17, 2025 Billing Provider: MICHEAL BRYANT MD, SIVA, RES Jan 17, 2025 14:27
[2025-01-18] VITALS (7 sets, daily range): BP systolic 129–168; BP diastolic 38–61; PULSE 74–85; RESP 12–18; TEMP 97.6–97.9; O2SAT 93–97
--- NOTE | 2025-01-18 18:00 | PROGRESS NOTE- Residence ---
Progress Note - Resident Providers to CC Resident Creating Document: ANIKA POWELL RES ~ Antibiotic Timeout Antibiotic Ordered?: No Subjective Patient seen and examined today. No new concerns or complaints, awaiting insurance authorization from [facility]. Objective Vital Signs Date Time Temp Pulse Resp B/P (MAP) Pulse Ox O2 Delivery O2 Flow Rate FiO2 01/18/25 11:53 74 18 94 Room Air* 0 21 01/18/25 06:00 97.6 146/44 (78) Result Diagram: 01/17/25 1003 01/17/25 1003 General: Awake and Alert, no acute distress. HEENT: Conjunctiva pink, Sclera clear, Mucus Membranes moist. Neck: Supple without masses and tenderness. Resp: Unlabored. Equal breath sounds bilaterally. Heart: Regular rhythm, normal S1 and S2, no rub, murmur or gallop. Abdomen: Multiple abdominal striae, right-sided surgical scar present. Soft and non tender no organomegaly. Normal bowel sounds x4 quadrant normoactive. No guarding or rigidity. Extremities: Right BKA. left MTP (all toes) No cyanosis,clubbing or edema. 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 Skin: Warm and Dry. Assessment Assessment A 54-year-old female with multiple medical comorbidities presented to the ED in view of acute onset of shortness of breaths. Patient is admitted for the evaluation management of acute hypoxemic respiratory failure probably secondary to acute CHF exacerbation. Plan Plan Acute hypoxemic respiratory failure 2/2 acute CHF exacerbation with reduced ejection fraction, EF: 35-40%, improving Elevated proBNP Echo in September: LVEF is 35-40%.chordal calcification madi on PMVL without stenosis GDM T: Aldactone 25 mg once daily, carvedilol 3.125 mg q.12h p.o., held Jardiance and AR in view of worsening kidney function Strict Is&Os, 1.5 L fluid restriction IV Lasix as tolerated Urinary tract infection Prerenal MELIDA probably secondary to renal tubular stasis on CKD stage 3 Urine culture showed growth of pansensitive Klebsiella pneumonia Completed seven day course of Rocephin 1 g IV daily Creatinine worsening with Arb DC losartan Also held Jardiance in view of UTI and MELIDA Hypertensive urgency, resolved HTN Continue carvedilol as per above, appropriate pain medication and maintenance Chlorthalidone 25 mg once daily Mild Troponinemia secondary to type 2 [place] Probably secondary to acute CHF exacerbation Mildly elevated troponins No EKG changes Normocytic anemia Probably secondary to nutrition MVT DM type 2 History of diabetic foot ulcers with MRSA of the right lower extremity and left toes History of BKA, TMA History of Osteomyelitis, MRSA A1c: 6.4 On moderate dose sliding scale insulin COPD, not in acute exacerbation Asthma, not in acute exacerbation DuoNeb p.r.n. Code status: Full code Diet: Heart healthy DVT prophylaxis: Heparin subQ Disposition: Continue care in [facility], awaiting authorization from [facility]. DC lisniopril, Farxiga, protonix and metformin home meds, creatinine trending up with these meds. Recommended to start GDMT on outpatient basis when kidney function permits. Anika Powell MD IM Resident PGY 3 Date of Service: Jan 18, 2025 Billing Provider: MICHEAL BRYANT MD, ELIZABETH, RES Jan 18, 2025 18:00
[2025-01-18] MEDS: hydrALAZINE 20mg/ml inj. IV PRN (22:47)
[2025-01-19 02:10] VITALS: BP 157/66
[2025-01-19 04:57] LABS: MEAN PLATELET VOLUME 8.3 FL (7.4-10.4); RED CELL DISTRIBUTION WIDTH 18.1 % (11.5-14.5)
[2025-01-19 05:30] LABS: CREATININE 1.65 MG/DL (0.40-0.90); TOTAL CARBON DIOXIDE 25.6 MMOL/L (24-32); eCRCL 30 ML/MIN; eGFR 33 ML/MIN
[2025-01-19 06:00] VITALS: BP 165/40; PULSE 83; RESP 16; TEMP 98.1; O2SAT 94
[2025-01-19 09:30] VITALS: PULSE 73; RESP 20; O2SAT 93
[2025-01-19 10:00] VITALS: BP 150/65; PULSE 72; RESP 16; TEMP 97.9; O2SAT 93
--- NOTE | 2025-01-19 10:48 | DISCHARGE SUMMARY-Residence ---
Discharge Summary Providers to CC Resident Creating Document: HARLEY RENAE, LEA CC: AFSANEH AVENDANO MD ~ Discharge Summary Admission Diagnosis: Acute hypoxemic respiratory failure secondary to CHF exacerbation Hospital Course DATE OF ADMISSION: 01/06/25 DATE OF DISCHARGE: 01/19/25 Discharge Diagnosis\\Comment: Acute hypoxemic respiratory failure 2/2 acute CHF exacerbation with reduced ejection fraction, EF: 35-40%, improving Urinary tract infection prerenal MELIDA probably secondary to renal tubular stasis on CKD stage 3 Hypertensive urgency, resolved Troponinemia secondary to type 2 [place] Normocytic anemia DM type 2 History of diabetic foot ulcers with MRSA of the right lower extremity and left toes History of BKA, TMA History of Osteomyelitis, MRSA COPD, not in acute exacerbation Asthma, not in acute exacerbation Operations\\Procedures: None Consultants: None Complications: None Condition on DC: Stable for transfer Continued Medications: Ascorbic Acid* (Vitamin C*) 500 Mg Tablet 1 TAB PO DAILY for 30 Days, #30 TAB Atorvastatin Calcium* (Lipitor*) 20 Mg Tablet 1 TABLET PO HS, TABLET Bisacodyl (Dulcolax) 5 Mg Tablet.dr 2 TAB PO DAILY for constipation for 1 Day, #2 TAB 0 Refills Carvedilol (Coreg) 3.125 Mg Tablet 1 TAB PO Q12H for 30 Days, #60 TAB Empagliflozin (Jardiance) 10 Mg Tablet 1 TAB PO DAILY for 30 Days, #30 TAB 0 Refills Fenofibrate Nanocrystallized* (Tricor*) 145 Mg Tablet 1 TAB PO DAILY for 30 Days, #30 TAB Gabapentin (Neurontin) 300 Mg Capsule 1 CAP PO BID for 30 Days, #90 CAP 0 Refills Insulin Glargine,Hum.rec.anlog* (Lantus*) 100 Unit/1 Ml Vial 10 UNITS SUBCUT HS for 30 Days, #5 ML Insulin Lispro (Insulin Lispro Kwikpen U-100) 100 Unit/Ml Insuln.pen Lisinopril (Lisinopril) 10 Mg Tablet 1 TAB PO DAILY for 30 Days, #30 TAB 0 Refills Metformin Hcl (Metformin Hcl) 500 Mg Tablet 500 MG PO BID, TAB Nitroglycerin SL* (Nitrostat SL*) 0.4 Mg Tablet 1 TAB SL Q5MIN PRN for Chest pain Q5min PRNx3-call MD, #25 TAB Oxycodone Hcl/Acetaminophen 5/325 MG* (Percocet 5/325 MG*) 5 Mg/325 Mg Tablet 1 TAB PO Q12H PRN PRN for pain for 30 Days, #60 TAB Pantoprazole Sodium (Pantoprazole Sodium) 40 Mg Tablet.dr 1 TAB PO DAILY for 30 Days, #30 TAB 0 Refills Polyethylene Glycol 3350* (Miralax*) 1 Packet Packet 1 PKT PO DAILY for constipation for 2 Days, #2 PKT dissolve in water Semaglutide (Ozempic) 1 Mg/0.75 Ml (4 Mg/3 Ml) Pen.injctr 0.5 MG SUBCUT Q7D, ML 0 Refills PT STATED "i TAKE HALF A MILLIGRAM" Sennosides/Docusate Sodium (Senna-S 8.6-50 mg Tablet) 8.6 Mg-50 Mg Tablet 2 TAB PO HS for 14 Days, #28 TAB 0 Refills Sertraline Hcl* (Zoloft*) 25 Mg Tablet 2 TAB PO DAILY for 30 Days, #30 TAB 0 Refills Tramadol HCl (Tramadol HCl) 50 Mg Tablet 1 TAB PO q8h prn for 7 Days, #28 TAB Discharge Summary: HPI as per admitting physician A 54-year-old female with PMH of heart failure, HTN, sarcoidosis, DM, diabetes mellitus with foot ulcers (MRSA) status post right AKA and left TMA presented to the ED in view of shortness of breaths that started this morning. Patient states that shortness of breaths pros present at rest, unable to explain her previous mobility and shortness of breaths associated with it. Patient is not on home oxygen. Patient also complains of phantom leg pain in the right lower extremity. Patient complains of sharp chest pain that has present in the left side with a severity of 8/10 nonradiating with no aggravating or relieving factors. Patient denies palpitations, dizziness, LOC. Patient was [facility] transferred [facility] and later discharged to rehab in [place] after right AKA. She was released from the rehab just yesterday. Patient is still has mikhail from recent AKA that needs to be taken out on 01/11 Hospital course: A 54-year-old female with PMH of heart failure, HTN, sarcoidosis, DM, diabetes mellitus with foot ulcers (MRSA) status post right AKA and left TMA presented to the ED in view of shortness of breaths, patient developed acute hypoxemic respiratory failure possibly secondary to acute congestive heart failure exacerbation with elevated proBNP of 30,000.Her last echo was done in September this year which showed EF of 35-40%. Patient was continued with her GDMT protocol Aldactone 25 mg, carvedilol 12.5 mg, however Jardiance and lisinopril was held, due to patient's worsening kidney functions. His creatinine climbed up to 1.65- 1.75. Patient also was placed on strict fluid restriction 1.5 L and strict I&Os were monitored. Patient developed urinary tract infection, urine culture showed growth of pansensitive Klebsiella pneumoniae and she was treated with a seven day course of Rocephin 1 g IV. Patient elevated troponins on admission possibly secondary to type 2 [place], however there were no ECG changes. Patient had elevated blood pressure admission which was mildly controlled, however patient continued to have elevated blood pressure, so we restarted her lisinopril 10 mg on discharged. Patient has a history of type 2 diabetes mellitus, history of diabetic foot ulcers with MRSA of the right lower extremity and left toes, history of BKA, TMA, osteomyelitis and MRSA positive, her A1c was 6.4, we treated her based on moderate dose sliding scale insulin. Patient has history of COPD and asthma which were not in exacerbation. Significant imagin01/06/25 Chest X-ray Diffuse bilateral pulmonary opacities noted, overall decreased 01/09/25 Chest x-ray Compared to previous exam improving congestive changes Vital Signs Date Time Temp Pulse Resp B/P (MAP) Pulse Ox O2 Delivery O2 Flow Rate FiO2 01/19/25 09:30 73 20 93 Room Air* 0 21 01/19/25 06:00 98.1 165/40 (81) Laboratory Tests Test 01/17/25 11:41 01/17/25 17:25 01/17/25 20:02 01/18/25 08:21 Glucometer 181 mg/dl 244 mg/dl 270 mg/dl 107 mg/dl Test 01/18/25 12:58 01/18/25 17:23 01/18/25 21:42 01/19/25 04:33 Glucometer 162 mg/dl 202 mg/dl 211 mg/dl White Blood Count 5.7 X10'3 Red Blood Count 3.15 X10'6 Hemoglobin 8.2 g/dl Hematocrit 25.8 % Mean Corpuscular Volume 82.0 FL Mean Corpuscular Hemoglobin 26.2 PG Mean Corpuscular Hemoglobin Concent 31.9 g/dL Red Cell Distribution Width 18.1 % Platelet Count 387 X10'3 Mean Platelet Volume 8.3 FL Neutrophils (%) (Auto) 77.0 % Lymphocytes (%) (Auto) 14.5 % Monocytes (%) (Auto) 7.4 % Eosinophils (%) (Auto) 0.6 % Basophils (%) (Auto) 0.5 % Neutrophils # (Auto) 4.4 X10'3 Lymphocytes # (Auto) 0.8 X10'3 Monocytes # (Auto) 0.4 X10'3 Eosinophils # (Auto) 0.0 X10'3 Basophils # (Auto) 0.0 X10'3 CBC Comment Sodium Level 142 MMOL/L Potassium Level 4.5 MMOL/L Chloride Level 107 MMOL/L Carbon Dioxide Level 25.6 MMOL/L Anion Gap 9 Blood Urea Nitrogen 53 MG/DL Creatinine 1.65 MG/DL Estimated GFR/1.73 m2 33 ML/MIN BUN/Creatinine Ratio 32.1 Glucose Level 162 MG/DL Calcium Level 8.5 MG/DL Albumin 2.2 G/DL Chemistry Comments Test 01/19/25 08:18 Glucometer 137 mg/dl Physical examination at the time of discharge General: Awake and Alert, no acute distress. HEENT: Conjunctiva pink, Sclera clear, Mucus Membranes moist. Neck: Supple without masses and tenderness. Resp: Unlabored. Equal breath sounds bilaterally. Heart: Regular rhythm, normal S1 and S2, no rub, murmur or gallop. Abdomen: Multiple abdominal striae, right-sided surgical scar present. Soft and non tender no organomegaly. Normal bowel sounds x4 quadrant normoactive. No guarding or rigidity. Extremities: Right BKA. Left MTP (all toes) No cyanosis,clubbing or edema. 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 Skin: Warm and Dry. Discharge instructions -your creatinine is elevated at 1.65, please recheck your creatinine in 2-3 weeks -please follow-up with your surgeon with respect to removal of sutures of your right knee amputation -we have added furosemide 20 mg b.i.d. -please continue to closely monitor your blood pressure -please return to the ED if you have symptoms of chest pain, shortness of breath -new medications added with the time of discharge, furosemide 20 mg p.o. b.i.d. *Problems/Diagnosis: (1) HFrEF (heart failure with reduced ejection fraction) Status: Acute (2) CHF exacerbation Status: Acute (3) Elevated troponin Status: Acute Total Time Spent on D/C: > 30 Minutes Date of Service: Jan 19, 2025 Billing Provider: AFSANEH AVENDANO MD, JAHNAVI, RES Jan 19, 2025 10:47 ALBERTINA DENIS, RES Jan 19, 2025 19:20
[2025-01-19 14:41] VITALS: BP 144/72; PULSE 74
== END 2025-01-19 16:44 | disposition short-term general hospital (02) | DRG 133 ==
LOC: ER 05:07 → ED HOLD 08:38 → PCU 3S 10:20 → ORTHO 4S 01-14 22:43
PROVIDERS: ADMIT Family Medicine; ATTEND Family Medicine
DX: J96.01 Acute respiratory failure with hypoxia (principal); N17.0 Acute kidney failure with tubular necrosis; I50.23 Acute on chronic systolic (congestive) heart failure; I21.A1 Myocardial infarction type 2; I16.0 Hypertensive urgency; D64.9 Anemia, unspecified; E11.22 Type 2 diabetes mellitus with diabetic chronic kidney disease; I13.0 Hypertensive heart and chronic kidney disease with heart failure and stage 1 through stage 4 chronic kidney disease, or unspecified chronic kidney disease; E11.42 Type 2 diabetes mellitus with diabetic polyneuropathy; N39.0 Urinary tract infection, site not specified; N18.30 Chronic kidney disease, stage 3 unspecified; J44.9 Chronic obstructive pulmonary disease, unspecified; R79.89 Other specified abnormal findings of blood chemistry; Z79.4 Long term (current) use of insulin; Z79.899 Other long term (current) drug therapy; Z79.84 Long term (current) use of oral hypoglycemic drugs; Z91.013 Allergy to seafood
CPT/HCPCS: 36415; 71045; 80048; 80053; 80061; 80076; 80305; 81001; 82565; 82570; 82948; 83036; 83605; 83735; 83880; 83935; 84132; 84133; 84300; 84484; 84703; 85008; 85025; 87040; 87077; 87081; 87088; 87186; 87207; 93005; 94760; 96374; 96375; 97110; 97161; 97530; 99291; A4615; A6154; A6212; A6213; A6250; A6258; A6446; G0378; J0360; J0696; J1644; J1815; J1938; J2250; J2405; J3490; J7030; J7040